=== PATIENT | male | born 1970 | race Caucasian/White ===

== ENCOUNTER 2020-04-02 14:58 | Inpatient (IN) | payer OTHER ==
[2020-04-02] MEDS ORDERED: morphine CARPU-JECT 4 MG/1 ML DISP.SYRIN IM ONE (15:42)
[2020-04-02] MEDS ORDERED: morphine SULFATE 4 MG/ML VIAL ONE (15:42)
--- NOTE | 2020-04-02 16:20 | PDOC ---
Documentation entered by Kassie East SCRIBE, acting as scribe for Omari Boyce MD. Omari Boyce MD: This documentation has been prepared by the Cruzito villalta Nirvannie, SCRIBE, under my direction and personally reviewed by me in its entirety. I confirm that the documentation accurately reflects all work, treatment, procedures, and medical decision making performed by me. Attending Attestation - Resident Resident Name: WanderdinahBonnie - ED Attending Attestation I have performed the following: I have examined & evaluated the patient, The case was reviewed & discussed with the resident, I agree w/resident's findings & plan, Exceptions are as noted - HPI HPI: 04/02/20 16:04 The patient is a 50 year old undomiciled male with no significant past medical history who presents to the ED with 2 months of worsening lower extremity wounds. Per EMS they received a call for that [place] on him. Patient states that he became homeless approximately 2 months ago, at some point as he was walking around he felt pain in his right ankle and felt it "shift". Since then he has had pain and discomfort in his ankle when he ambulated, but recently has been so u ncomfortable that he cannot walk. Patient also endorses diffuse body aches, chest pain, abdominal pain,, subjective fevers and chills, also endorses feeling dizzy when he stands up. He has no known medical problems - Physicial Exam PE: 04/02/20 16:43 GENERAL: The patient is awake, alert, , Nontoxic - in no acute distress, disheveled, unkempt, HEAD: Normocephalic, atraumatic. EYES: extraocular movements intact, sclera anicteric, conjunctiva clear. ENT: Normal voice, Moist mucous membranes. NECK: Normal range of motion, supple LUNGS: Breath sounds equal, clear to auscultation bilaterally. No wheezes, no rhonchi, no rales. HEART: Tachycardic ABDOMEN: Soft, slightly distended, no focal tenderness, no rebound or guarding, no CVA tenderness EXTREMITIES: no edema, able to flex/extend b/l feet. NEUROLOGICAL: No facial assymetry, Normal speech, wheezing all 4 extremities spontaneously and symmetrically PSYCH: Normal mood, normal affect. SKIN: Warm, Dry, normal turgor, open wounds/maggots to the R foot, dusky apperarance to R foot, diffuse tenderness to palpation, L foot, DP pulses faintly presen. no cerpitus apprecitaed - Critical Care Time Total Critical Care Time: 35 Critical Care Statement: The care of this patient involved high complexity decision making to prevent further life threatening deterioration of the patient's condition and/or to evaluate & treat vital organ system(s) failure or risk of failure. - Medical Decision Making 04/02/20 16:47 suspect gangrene, ? underlying bony injury sepsis orderset obtained will obtain imaging of chest, b/l feet and likely CT of bl feet to eval for tissue injury/infection will start broad spectrum abx signed out to evening team to fu with results Discharge - Discharge Information Problems reviewed: Yes Clinical Impression/Diagnosis: Hyperglycemia, Lactic acid acidosis, Homeless single person Sepsis Qualifiers: Sepsis type: sepsis due to unspecified organism Sepsis acute organ dysfunction status: unspecified Qualified Code(s): A41.9 - Sepsis, unspecified organism Trench foot Qualifiers: Encounter type: initial encounter Laterality: unspecified laterality Qualified Code(s): T69.029A - Immersion foot, unspecified foot, initial encounter Condition: Guarded - Follow up/Referral - Patient Discharge Instructions - Post Discharge Activity
[2020-04-02 16:29] VITALS: BMI 29.9
[2020-04-02] MEDS ORDERED: SODIUM CHLORIDE 0.9% 500 ML INFUS.BAG IV ONE ×2 (16:41→17:25)
[2020-04-02] MEDS ORDERED: VANCOMYCIN 1 GM in D5W (PRE-DOCKED) 1,000 MG/250 ML IVPB ONE (16:41)
[2020-04-02] MEDS ORDERED: PIPERACILLIN/TAZOB 3.375 GM 3.375 GM in DEXTROSE 5%-WATER - 50 ML IVPB ONE (16:42)
[2020-04-02] MEDS ORDERED: PIPERACILLIN/TAZOB 4.5 GM 4.5 GM in DEXTROSE 5%-WATER 100 ML IVPB ONE (16:43)
[2020-04-02] MEDS ORDERED: VANCOMYCIN HCL 1,500 MG in DEXTROSE 5%-WATER - 500 ML IVPB ONE (16:44)
[2020-04-02 16:46] LABS: BASO % 0.2 % (0-2.0); EOS % 0.1 % (0-4.5); HEMATOCRIT 39.2 % (35.4-49); HEMOGLOBIN 13.2 GM/dL (11.7-16.9); LYMPH % 12.8 % (8-40); MCH 29.2 pg (25.7-33.7); MCHC 33.6 g/dl (32.0-35.9); MEAN CELL VOLUME 86.9 fl (80-96); MEAN PLT VOLUME 11.2 fl (7.5-11.1); MONO % 13.3 % (3.8-10.2); NEUT % 73.6 % (42.8-82.8); PLATELET COUNT 276 K/MM3 (134-434); RBC 4.51 M/mm3 (4.00-5.60); RDW 13.9 % (11.9-15.9); WHITE BLOOD COUNT 18.5 K/mm3 (4.0-10.0)
[2020-04-02 17:08] LABS: INR 1.39 (0.83-1.09); PROTHROMBIN TIME (PATIENT) 16.4 SEC (9.7-13.0)
--- NOTE | 2020-04-02 17:12 | PDOC ---
History of Present Illness - General Stated Complaint: INFECTION ON RIGHT LEG Time Seen by Provider: 04/02/20 15:00 Past History - Past Medical History Allergies/Adverse Reactions: Allergies Allergy/AdvReac Type Severity Reaction Status Date / Time No Known Allergies Allergy Verified 04/02/20 16:19 Home Medications: Ambulatory Orders NK [No Known Home Medication] 04/02/20 COPD: No - Immunization History Immunization Up to Date: No - Psycho Social/Smoking Cessation Hx Smoking History: Unknown if ever smoked Hx Alcohol Use: Yes Drug/Substance Use Hx: No *Physical Exam - Vital Signs Last Vital Signs Temp Pulse Resp BP Pulse Ox 97.1 F L 129 H 19 127/90 99 04/02/20 16:00 04/02/20 16:00 04/02/20 16:00 04/02/20 16:00 04/02/20 16:00 ED Treatment Course - LABORATORY CBC & Chemistry Diagram: 04/07/20 06:35 04/07/20 06:35 - ADDITIONAL ORDERS Additional order review: Laboratory Results 04/02/20 16:00 PT with INR 16.40 H INR 1.39 H 04/02/20 16:00 RBC 4.51 MCV 86.9 MCHC 33.6 RDW 13.9 MPV 11.2 H Neutrophils % 73.6 Lymphocytes % 12.8 Monocytes % 13.3 H Eosinophils % 0.1 Basophils % 0.2 - RADIOLOGY Radiology Studies Ordered: Category Date Time Status CHEST X-RAY PORTABLE* [RAD] Stat Radiology 04/02/20 16:12 Ordered - Medications Given in the ED: ED Medications Discontinued Medications Generic Name Dose Route Start Last Admin Trade Name Apurva PRN Reason Stop Dose Admin Morphine Sulfate 4 mg 04/02/20 15:42 04/02/20 15:45 Morphine Injection - IM 04/02/20 15:43 4 mg ONCE ONE Administration Medical Decision Making - Medical Decision Making 04/02/20 17:11 HPI: 50yo undomiciled M no known PMH BIBA from street for bilateral foot infection with maggots [id number]. Per EMS, bystanders noticed maggots coming out of pt's pants/boots and called EMS. [place]. Pt c/o worsening pain and infection in both feet, R>L, worsening. Denies numbness or t ingling. States he can no longer walk due to the pain. Denies wounds but thinks he might have injured his right ankle while walking 2 months ago. Pt states he left prison 3 months ago and couldn't find a job with coronavirus and has been homeless for 2 months. No primary care doctor or medical care. States the infection from his feet is making everything else hurt as well including his chest and abdomen and arms and back. Endorses subjective fever and chills. PCP - none ROS: Constitutional: Positive for chills, fever. Negative for fatigue, diaphoresis. HENT: Negative for sore throat, rhinorrhea, congestion. Eyes: Negative for visual disturbance. Respiratory: Negative for shortness of breath, cough, and wheezing. Cardiovascular: Positive for diffuse chest pain. Negative for palpitations. Gastrointestinal: Positive for diffuse abdominal pain. Negative for blood in stool, constipation, diarrhea, nausea, and vomiting. Genitourinary: Negative for dysuria, flank pain, and hematuria. Musculoskeletal: Positive for myalgias, diffuse back pain. Negative for neck pain. Skin: Positive for BLE infection/rash. Neurological: Negative for light-headedness, dizziness, vertigo, syncope, weakness, numbness and headaches. Psychiatric/Behavioral: Negative for behavioral problems and confusion. PE: Gen: Alert, NAD, uncomfortable-appearing, unkempt, disheveled, malodourous, covered in flies and maggots and feces and urine HEENT: PERRL, EOMI, MMM, NCAT. No conjunctival pallor. Sclera are non-icteric. CV: Tachycardic rate and regular rhythm. No murmurs, rubs, or gallops. PULM: No resp distress. CTAB, no wheezes, rales, or rhonchi. ABD: soft, NT/ND, no rebound tenderness or guarding, no CVA tenderness. BACK: No TTP of c/t/l-spine. No step-offs or deformities. MSK: No bony deformities. 2+ pulses in UEs, pulses faint in LEs difficult to appreciate 2/2 pain and swelling, but sensation intact throughout and able to move toes. NEURO: AAOx3. PERRL. No gross CN deficits. Strength and sensation grossly intact in UEs. LEs: sensation intact throughout and able to move toes, difficulty moving legs 2/2 pain EXTREMITIES: No cyanosis. No clubbing. See skin section. PSYCH: Normal mood and thought pattern. SKIN: Warm and dry. No jaundice. RLE: covered in thousands of maggots (cleaned off with betadine), sock adherent to skin had to be cut off, diffuse TTP especially to foot and ankle, indentation to ankle, open wounds and erythema to R foot and lower leg, duskiness to R foot, no crepitus LLE: erythematous L foot, TTP of L foot and ankle, no crepitus MDM: 50yo undomiciled M no known PMH BIBA from street for bilateral foot infection with maggots [id number]. Tachycardic 120s-130s, otherwise hemodynamically stable, 97.1F, LEs as above. Ddx: cellulitis, soft tissue infection, osteomyelitis, necrotising fasciitis, gangrene/necrosis, fracture, dislocation, sepsis, COVID, metabolic derangement -Pt cleaned -Sepsis set -EKG -CXR -XR b/l feet/ankle -CT BLEs distal to knees -Pain management -IVF -Vanc, Zosyn -COVID -Social work consult -Dispo: pending w/u, likely admit vs transfer 04/02/20 18:15 EKG reviewed: sinus tachycardia, 128bpm, normal intervals, normal axis, no e/o acute ischemia CXR reviewed: no acute pathology. Calcified granuloma within R midlung. XR BLEs reviewed: Left (labeled right): Mild degenerative arthritis. No fx or acute. Right (labeled left): No e/o fx. Diffuse soft tissue swelling w/o e/o subcutaneous emphysema. Deformity of phalanges of L fifth toes suspicious for osteomyelitis. Discussed with XR tech - left and right foot labels were switched. XR tech will call radiologist to inform. Labs reviewed. Notable for WBC 18.5, Na 124, gluc 439, lact 3.7. 04/02/20 19:05 Signed out to night team pending CT read and 2nd lact. Discharge - Discharge Information Problems reviewed: Yes Clinical Impression/Diagnosis: Hyperglycemia, Lactic acid acidosis, Homeless single person Sepsis Qualifiers: Sepsis type: sepsis due to unspecified organism Sepsis acute organ dysfunction status: unspecified Qualified Code(s): A41.9 - Sepsis, unspecified organism Trench foot Qualifiers: Encounter type: initial encounter Laterality: unspecified laterality Qualified Code(s): T69.029A - Immersion foot, unspecified foot, initial encounter Condition: Guarded - Follow up/Referral - Patient Discharge Instructions - Post Discharge Activity
[2020-04-02 17:16] LABS: ALBUMIN 2.5 g/dl (3.4-5.0); BILIRUBIN,TOTAL 0.9 mg/dL (0.2-1); BLOOD UREA NITROGEN 28.3 mg/dL (7-18); CALCIUM 8.6 mg/dL (8.5-10.1); CREATININE 1.3 mg/dL (0.55-1.3); POTASSIUM 4.8 mmol/L (3.5-5.1); TOT PROT 7.8 g/dl (6.4-8.2)
[2020-04-02] MEDS ORDERED: PIPERACILLIN/TAZOB 4.5 GM 4.5 GM/100 ML BAG IVPB ONE (17:27)
[2020-04-02] MEDS ORDERED: VANCOMYCIN 1 GRAM (PRE-DOCKED) 1,000 MG/250 ML BAG IVPB ONE (17:28)
--- NOTE | 2020-04-02 19:27 | PDOC ---
*Physical Exam - Vital Signs Last Vital Signs Temp Pulse Resp BP Pulse Ox 98.3 F 124 H 18 123/71 100 04/02/20 19:02 04/02/20 19:02 04/02/20 19:14 04/02/20 19:02 04/02/20 19:14 ED Treatment Course - LABORATORY CBC & Chemistry Diagram: 04/02/20 16:00 04/02/20 16:00 - ADDITIONAL ORDERS Additional order review: Laboratory Results 04/02/20 04/02/20 04/02/20 16:00 16:00 16:00 PT with INR INR PTT (Actin FS) Sodium 124 L Potassium 4.8 Chloride 88 L Carbon Dioxide 26 Anion Gap 10 BUN 28.3 H Creatinine 1.3 Est GFR (CKD-EPI)AfAm 73.74 Est GFR (CKD-EPI)NonAf 63.62 Random Glucose 439 H* Lactic Acid 3.7 H* Calcium 8.6 Total Bilirubin 0.9 AST 29 ALT 25 Alkaline Phosphatase 145 H Creatine Kinase 115 Troponin I Total Protein 7.8 Albumin 2.5 L Blood Type A POSITIVE Antibody Screen Negative 04/02/20 04/02/20 16:00 16:00 PT with INR 16.40 H INR 1.39 H PTT (Actin FS) 35.0 Sodium Potassium Chloride Carbon Dioxide Anion Gap BUN Creatinine Est GFR (CKD-EPI)AfAm Est GFR (CKD-EPI)NonAf Random Glucose Lactic Acid Calcium Total Bilirubin AST ALT Alkaline Phosphatase Creatine Kinase Troponin I < 0.02 Total Protein Albumin Blood Type Antibody Screen 04/02/20 16:00 RBC 4.51 MCV 86.9 MCHC 33.6 RDW 13.9 MPV 11.2 H Neutrophils % 73.6 Lymphocytes % 12.8 Monocytes % 13.3 H Eosinophils % 0.1 Basophils % 0.2 - Medications Given in the ED: ED Medications Discontinued Medications Generic Name Dose Route Start Last Admin Trade Name Freq PRN Reason Stop Dose Admin Piperacillin Sod/Tazobactam 100 mls @ 200 mls/hr 04/02/20 16:43 04/02/20 17:34 Sod 4.5 gm/ Dextrose IVPB 04/02/20 17:12 200 mls/hr ONCE ONE Administration Protocol Vancomycin HCl 1,500 mg/ 500 mls @ 250 mls/hr 04/02/20 16:44 04/02/20 17:34 Dextrose IVPB 04/02/20 18:43 250 mls/hr ONCE ONE Administration Morphine Sulfate 4 mg 04/02/20 15:42 04/02/20 15:45 Morphine Injection - IM 04/02/20 15:43 4 mg ONCE ONE Administration Sodium Chloride 1,000 ml 04/02/20 16:41 04/02/20 17:34 Normal Saline - IV 04/02/20 16:42 1,000 ml ONCE ONE Administration Sodium Chloride 1,000 ml 04/02/20 17:25 04/02/20 19:00 Normal Saline - IV 04/02/20 17:26 1,000 ml ONCE ONE Administration Vancomycin HCl 1,000 mg 04/02/20 16:41 04/02/20 19:12 Vancomycin (Pre-Docked) IVPB 04/02/20 16:42 Not Given ONCE ONE Protocol Medical Decision Making - Medical Decision Making 04/02/20 19:24 Sign-out received from Dr. Doe Patient awaiting results of LE CT - concern for osteo vs less likely necrotizing infection Repeat lactate due 8PM s/p Vanc Zosyn Admit vs Surgery Consult 04/02/20 19:32 Patient hyponatremic 124 (corrected for glucose > 132) Hyperglycemic, suspected DM,, no anion gap UTI with +Glucose and Ketones, no UTI (?starvation ketosis) Lactic acidosis s/p 2 L NS Trench Foot, s/p cleaning, Morphine pain control Imaging to r/o deeper foot infection Homeless w/o access to care 04/02/20 20:29 CT concerning for osteo of the 5th digit, patient will need follow-up MRI s/p broad spectrum ABX Dispo: Med/Surg 04/02/20 20:36 Microblog sent to inpatient team, decision to admit placed with blank for attending as per policy. 04/02/20 21:20 Lactic acid down-trending s/p IVF Patient sleeping comfortably Discharge - Discharge Information Problems reviewed: Yes Clinical Impression/Diagnosis: Hyperglycemia, Lactic acid acidosis, Homeless single person Sepsis Qualifiers: Sepsis type: sepsis due to unspecified organism Sepsis acute organ dysfunction status: unspecified Qualified Code(s): A41.9 - Sepsis, unspecified organism Trench foot Qualifiers: Encounter type: initial encounter Laterality: unspecified laterality Qualified Code(s): T69.029A - Immersion foot, unspecified foot, initial encounter Condition: Guarded - Follow up/Referral - Patient Discharge Instructions - Post Discharge Activity
[2020-04-02 19:28] LABS: URINE APPEARANCE CLEAR; URINE BILIRUBIN NEGATIVE (NEGATIVE); URINE COLOR DK YELLOW; URINE GLUCOSE (UA) 3+ (NEGATIVE); URINE KETONE 1+ (NEGATIVE); URINE LEUK ESTERASE NEGATIVE (NEGATIVE); URINE NITRITE NEGATIVE (NEGATIVE); URINE PROTEIN TRACE (NEGATIVE)
--- NOTE | 2020-04-02 21:31 | PN ---
Teaching Attending Note Name of Resident: Cristel Aguiar ATTENDING PHYSICIAN STATEMENT I saw and evaluated the patient. I reviewed the resident's note and discussed the case with the resident. I agree with the resident's findings and plan as documented. SUBJECTIVE: Patient is a 50 year old undomiciled man with "unknown" PMH who was brought by EMS to the ER for 2 months of worsening lower extremity wounds. Per EMS they received a call for that [place] magg[place] on him. Patient states that he became homeless approximately 2 months ago, and at some point as he was walking around he felt pain in his right ankle and felt it "shift". Since then he has had pain and discomfort in his ankle when he ambulated, but recently has been so uncomfortable that he cannot walk. Also has diffuse body aches, chest pain, abdominal pain, subjective fevers, chills and feels dizzy when he stands up. Denies alcohol, tobacco or illicit drug use. No sick contacts or recent travels. Family history is unremarkable. OBJECTIVE: Alert and unkempt Vital Signs Period Temp Pulse Resp BP Sys/Perkins Pulse Ox Last 24 Hr 97.1 F-98.3 F 124-129 18-19 123-127/71-90 99-100 HEENT: No Jaundice, eye redness or discharge, poor dentition, dry mucous membranes, PERRLA, EOMI. Normocephalic, atraumatic. External ears are normal and hearing is grossly intact. No nasal discharge. Neck: Supple, nontender. No palpable adenopathy or thyromegaly. No JVD Chest: Good effort. Clear to auscultation and percussion. Heart: Regular. No S3, rub or murmur Abdomen: Not distended, soft, nontender and no HSM. No rebound or guarding. Normal bowel sounds. Ext: Peripheral pulses intact. Scaly dry lower legs. Multiple open wounds and erythema on right foot and lower leg; +edema and tender with no crepitus. Left foot and lower leg erythema, edema and tenderness with no crepitus. Skin: Warm and dry. No petechiae, rash or ecchymosis. Neuro: Alert. No asterexis or tremors. Oriented x3. CN 2-12 grossly intact. Sensation grossly intact in all four extremities and DTR are symmetric. Psych: Appropriate mood and affect. Good insight. Home Medications Medication Instructions Recorded NK [No Known Home Medication] 04/02/20 Abnormal Lab Results 04/02/20 04/02/20 04/02/20 16:00 16:00 16:00 WBC 18.5 H MPV 11.2 H Absolute Neuts (auto) 13.6 H Monocytes % 13.3 H PT with INR 16.40 H INR 1.39 H Sodium 124 L Chloride 88 L BUN 28.3 H Random Glucose 439 H* Lactic Acid Alkaline Phosphatase 145 H Albumin 2.5 L Ur Specific [place] Urine Glucose (UA) Urine Ketones 04/02/20 04/02/20 04/02/20 16:00 19:00 20:10 WBC MPV Absolute Neuts (auto) Monocytes % PT with INR INR Sodium Chloride BUN Random Glucose Lactic Acid 3.7 H* 2.1 H Alkaline Phosphatase Albumin Ur Specific [place] 1.039 H Urine Glucose (UA) 3+ H Urine Ketones 1+ H ASSESSMENT AND PLAN: 1. Sepsis due to lower extremity wound infection/Rule out osteomyelitis - No acute abnormality on CXR. Foot xrays show mild degenerative arthritis on the left, no fractures on both sides and diffuse soft tissue swelling with soft tissue swelling and subcutaneous emphysema on the right. Deformity of phalanges of right fifth toe suspicious for osteomyelitis. CT scan of lower extremity shows soft tissue swelling of right foot, no air collection, no fracture, extensive edema, deformity of right 5th proximal phalanx concerning for osteomyelitis - MRI recommended. Wound cleaned in the ER, sepsis workup done and started on IV Vancomycin and Zosyn and IV NS. Viral testing for COVID-19 was collected and sent out by the ER staff. Patient placed on airborne, droplet and contact isolation. EKG shows sinus tachycardia at 128/minute with no significant ST-T wave changes. Provide daily wound care, consult ID, Wound care service and Podiatry. Hyponatremia likely partly due to hyperglycemia. Will get TSH, limit free water intake and correct hyperglycemia. Consult wireworker to assist with living situation. Patient is at risk for alcohol/substance abuse. Will get urine toxicology and monitor for withdrawal. Implement fall precautions. Monitor and replete electrolytes (Ca,Mg,K,P). 2. Hypoalbuminemia - Possibly due to combined effects of malnutrition and inflammation associated with comorbid conditions. Will ensure adequate dietary protein intake and also consult bus person dishwasher. 3. New onset DM? with ketosis May have a component of starvation ketosis, but with very high blood glucose, will check HbA1c. Continue IV NS and implement sliding scale insulin regimen. Provide comprehensive diabetes care with patient teaching and counseling about the importance of adherence to prescribed diabetes regimen, euglycemia, eye care and foot care. 4. Obesity Counseled on the risks associated with obesity. Will provide patient all the necessary assistance, counseling and positive reinforcement to facilitate weight loss. Consult bus person dishwasher. 5. DVT prophylaxis - Lovenox 40 mg SQ q 24 hours. 6. Advance directives - Full code
--- NOTE | 2020-04-02 22:08 | HP ---
CHIEF COMPLAINT: Lower extremity pain PCP: None HISTORY OF PRESENT ILLNESS: 50M undomiciled who presents today after bystanders noted he had maggots on his lower extremities. Patient states that both of his legs began to develop pain 2 months ago and gradually worsened. He has had increased difficulty walking over the past few days, and has not been able to ambulate at all the last 2 days. He believes that he fractured his ankle in the recent past. He endorses decreased sensation in the right 5th toe, and he notes that his wounds were normally dry without drainage. He also complains of chest pain, abdominal pain, back pain, and pain in all his extremities, which he attributes mostly to sleeping on the street. He denies any fever, cough, congestion, rhinorrhea, dysuria, hematuria, nausea, vomiting, and diarrhea. ER course was notable for: (1) Vancomycin and Zosyn were given, 2L NS given. (2) X-Ray of both feet and Lower extremity CT were completed. Lower extremity CT notable for suspicion of OM for 5th toe on right foot. (3) Patient noted to be hyperglycemic to 439. (4) EKG showed sinus tachycardia with QTc 461 Recent Travel: None PAST MEDICAL HISTORY: None, does not follow with a doctor PAST SURGICAL HISTORY: None FAMILY MEDICAL HISTORY: Denies Social History: Smoking: Denies Alcohol: Occasional Drugs: Denies Patient is undomiciled, has no family nearby, was recently in [facility] for 1 month at the end of 2018. He does not live in a fpc. 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 Allergies No Known Allergies Allergy (Verified 04/02/20 16:19) HOME MEDICATIONS: Home Medications Medication Instructions Recorded NK [No Known Home Medication] 04/02/20 REVIEW OF SYSTEMS CONSTITUTIONAL: Absent: fever, chills, diaphoresis, generalized weakness, malaise, loss of appetite, weight change HEENT: Absent: rhinorrhea, nasal congestion, throat pain, throat swelling, difficulty swallowing, mouth swelling, ear pain, eye pain, visual changes CARDIOVASCULAR: Present: chest pain Absent: syncope, palpitations, irregular heart rate, lightheadedness, peripheral edema RESPIRATORY: Absent: cough, shortness of breath, dyspnea with exertion, orthopnea, wheezing, stridor, hemoptysis GASTROINTESTINAL: Present: abdominal pain Absent: abdominal distension, nausea, vomiting, diarrhea, constipation, melena, hematochezia GENITOURINARY: Absent: dysuria, frequency, urgency, hesitancy, hematuria, flank pain, genital pain MUSCULOSKELETAL: Present: neck pain, back pain, myalgia, arthralgia Absent: joint swelling, SKIN: Absent: rash, itching, pallor HEMATOLOGIC/IMMUNOLOGIC: Absent: easy bleeding, easy bruising, lymphadenopathy, frequent infections ENDOCRINE: Absent: unexplained weight gain, unexplained weight loss, heat intolerance, cold intolerance NEUROLOGIC: Absent: headache, focal weakness or paresthesias, dizziness, unsteady gait, seizure, mental status changes, bladder or bowel incontinence PSYCHIATRIC: Absent: anxiety, depression, suicidal or homicidal ideation, hallucinations. PHYSICAL EXAMINATION Vital Signs - 24 hr 04/02/20 04/02/20 04/02/20 16:00 19:02 19:14 Temperature 97.1 F L 98.3 F Pulse Rate 129 H Pulse Rate [ 124 H Left Radial] Respiratory 19 18 18 Rate Blood Pressure 127/90 Blood Pressure 123/71 [Right Arm] O2 Sat by Pulse 99 100 100 Oximetry (%) GENERAL: Awake, alert, and fully oriented, in no acute distress. Disheveled. HEAD: Normal with no signs of trauma. EYES: Pupils equal, round and reactive to light, EARS, NOSE, THROAT:Poor dentition, dry mucous membranes. NECK: Normal range of motion, supple without lymphadenopathy, JVD, or masses. LUNGS: Breath sounds equal, clear to auscultation bilaterally. No wheezes, and no crackles. HEART: Tachycardic normal S1 and S2 without murmur, rub or gallop. ABDOMEN: Soft, nontender, not distended, normoactive bowel sounds, no guarding, no rebound, no masses. No hepatomegaly or splenomegaly. Obese body habiturs UPPER EXTREMITIES: 2+ pulses, warm, well-perfused. No cyanosis. No clubbing. No peripheral edema. LOWER EXTREMITIES: 2+ pulses b/l. 3/5 strength. Sensation in tact b/l NEUROLOGICAL: Cranial nerves II-XII intact. Normal speech. PSYCHIATRIC: Cooperative. Good eye contact. Appropriate mood and affect. SKIN: dark and scaly on both lower extremities b/l. Multiple wounds on right lower extremity, non draining non purelent. Laboratory Results - last 24 hr 04/02/20 04/02/20 04/02/20 16:00 16:00 16:00 WBC 18.5 H RBC 4.51 Hgb 13.2 Hct 39.2 MCV 86.9 MCH 29.2 MCHC 33.6 RDW 13.9 Plt Count 276 MPV 11.2 H Absolute Neuts (auto) 13.6 H Neutrophils % 73.6 Neutrophils % (Manual) 69.3 Band Neutrophils % 5.0 Lymphocytes % 12.8 Lymphocytes % (Manual) 16.8 Monocytes % 13.3 H Monocytes % (Manual) 7 Eosinophils % 0.1 Eosinophils % (Manual) 0.0 Basophils % 0.2 Basophils % (Manual) 0.0 Myelocytes % (Man) 0 Promyelocytes % (Man) 0 Blast Cells % (Manual) 0 Nucleated RBC % 0 Metamyelocytes 1 PT with INR 16.40 H INR 1.39 H PTT (Actin FS) 35.0 Sodium Potassium Chloride Carbon Dioxide Anion Gap BUN Creatinine Est GFR (CKD-EPI)AfAm Est GFR (CKD-EPI)NonAf Random Glucose Lactic Acid Calcium Total Bilirubin AST ALT Alkaline Phosphatase Creatine Kinase Troponin I < 0.02 Total Protein Albumin Urine Color Urine Appearance Urine pH Ur Specific [place] Urine Protein Urine Glucose (UA) Urine Ketones Urine Blood Urine Nitrite Urine Bilirubin Urine Urobilinogen Ur Leukocyte Esterase Blood Type Antibody Screen 04/02/20 04/02/20 04/02/20 16:00 16:00 16:00 WBC RBC Hgb Hct MCV MCH MCHC RDW Plt Count MPV Absolute Neuts (auto) Neutrophils % Neutrophils % (Manual) Band Neutrophils % Lymphocytes % Lymphocytes % (Manual) Monocytes % Monocytes % (Manual) Eosinophils % Eosinophils % (Manual) Basophils % Basophils % (Manual) Myelocytes % (Man) Promyelocytes % (Man) Blast Cells % (Manual) Nucleated RBC % Metamyelocytes PT with INR INR PTT (Actin FS) Sodium 124 L Potassium 4.8 Chloride 88 L Carbon Dioxide 26 Anion Gap 10 BUN 28.3 H Creatinine 1.3 Est GFR (CKD-EPI)AfAm 73.74 Est GFR (CKD-EPI)NonAf 63.62 Random Glucose 439 H* Lactic Acid 3.7 H* Calcium 8.6 Total Bilirubin 0.9 AST 29 ALT 25 Alkaline Phosphatase 145 H Creatine Kinase 115 Troponin I Total Protein 7.8 Albumin 2.5 L Urine Color Urine Appearance Urine pH Ur Specific [place] Urine Protein Urine Glucose (UA) Urine Ketones Urine Blood Urine Nitrite Urine Bilirubin Urine Urobilinogen Ur Leukocyte Esterase Blood Type A POSITIVE Antibody Screen Negative 04/02/20 04/02/20 19:00 20:10 WBC RBC Hgb Hct MCV MCH MCHC RDW Plt Count MPV Absolute Neuts (auto) Neutrophils % Neutrophils % (Manual) Band Neutrophils % Lymphocytes % Lymphocytes % (Manual) Monocytes % Monocytes % (Manual) Eosinophils % Eosinophils % (Manual) Basophils % Basophils % (Manual) Myelocytes % (Man) Promyelocytes % (Man) Blast Cells % (Manual) Nucleated RBC % Metamyelocytes PT with INR INR PTT (Actin FS) Sodium Potassium Chloride Carbon Dioxide Anion Gap BUN Creatinine Est GFR (CKD-EPI)AfAm Est GFR (CKD-EPI)NonAf Random Glucose Lactic Acid 2.1 H Calcium Total Bilirubin AST ALT Alkaline Phosphatase Creatine Kinase Troponin I Total Protein Albumin Urine Color Dk yellow Urine Appearance Clear Urine pH 6.0 Ur Specific [place] 1.039 H Urine Protein Trace Urine Glucose (UA) 3+ H Urine Ketones 1+ H Urine Blood Negative Urine Nitrite Negative Urine Bilirubin Negative Urine Urobilinogen 1.0 Ur Leukocyte Esterase Negative Blood Type Antibody Screen ASSESSMENT/PLAN: 50M undomiciled and with uncertain PMH who presents toady with sepsis likely 2/2 wound infection. 1) Sepsis -Patient presents in sinus tachycardia, WBC of 18.5, lactic acid of 3.7 - Vancomycin and Zosyn were given in ED - Patient denies any fevers - COVID swab sent, pending - Zinc, Vitamin C and D ordered - Likely due to wound infection vs OM in 5th toe. - Continue Vancomycin and Zosyn - Wound culture - NS @ 100 ml/hr for 1 bag - ID consulted 2) Possible OM of 5th toe R. foot - X-Ray and CT did not confirm OM - MRI ordered b/l lower extremities. - Tylenol for pain 4-6. - Morphine PRN for pain 10 - Podiatry consulted - Will consider addition of vascular surgery team 3) Hyperglycemia - Patient presents with blood glucose of 439, repeat POC was 343 - 8 units insulin ordered,sliding scale ordered - HbA1c ordered for morning - Diabetic diet 4) Hyponatremia - Sodium corrects to 129 - Repeat BMP stat - NS @ 100 ml/hr - Continue to trend - TSH 5) Social work requirements - Patient currently undomiciled, has not been able to seek care or establish care - Social work consult placed DVT: Heparin F: NS @ 100 E: Monitor Na N: Diabetic Diet Dispo: admit to med/surg Visit type - Emergency Visit Emergency Visit: Yes ED Registration Date: 04/02/20 Care time: The patient presented to the Emergency Department on the above date and was hospitalized for further evaluation of their emergent condition. - New Patient This patient is new to me today: Yes Date on this admission: 04/03/20 - Critical Care Critical Care patient: No ATTENDING PHYSICIAN STATEMENT I saw and evaluated the patient. I reviewed the resident's note and discussed the case with the resident. I agree with the resident's findings and plan as documented. SUBJECTIVE: OBJECTIVE: ASSESSMENT AND PLAN:
[2020-04-02] MEDS ORDERED: SODIUM CHLORIDE 1,000 ML IV SCH (23:30)
[2020-04-02] MEDS ORDERED: HEPARIN NA (PORCINE) 5,000 UNITS/ML 1ML VIAL ONE (23:51)
[2020-04-02] MEDS: HEPARIN NA (PORCINE) 5,000 UNITS/ML 1ML VIAL SQ SCH (23:58)
[2020-04-03] MEDS ORDERED: INSULIN (NOVOLOG) ASPART 100 UNITS/ML 10ML VIAL SQ ONE (00:02)
[2020-04-03] MEDS ORDERED: ACETAMINOPHEN 325 MG TABLET (FP) PO PRN (00:14)
[2020-04-03] MEDS ORDERED: PIPERACILLIN/TAZOBACTAM 3.375 GM VIAL IVPB ONE ×3 (01:06→18:23)
[2020-04-03] MEDS ORDERED: DEXTROSE 5%-WATER - 50 ML IVPB ONE ×3 (01:06→18:23)
[2020-04-03] MEDS: PIPERACILLIN/TAZOB 3.375 GM 3.375 GM in DEXTROSE 5%-WATER - 50 ML IVPB SCH ×5 (01:11→19:20)
[2020-04-03 02:44] LABS: COCAINE, UR NEGATIVE ng/ml (CUTOFF=300); METHADONE, UR NEGATIVE ng/ml (CUTOFF=300); PHENCYCLIDINE,URINE NEGATIVE ng/ml (CUTOFF=25); URINE AMPHETAMINES NEGATIVE ng/ml (CUTOFF=500); URINE BARBITURATES NEGATIVE ng/ml (CUTOFF=200)
[2020-04-03 02:50] LABS: URINE BENZODIAZEPINES NEGATIVE ng/ml (CUTOFF=200)
[2020-04-03 02:51] LABS: OPIATES, URI POSITIVE ng/ml (CUTOFF=300)
[2020-04-03 03:01] LABS: CALCIUM 7.7 mg/dL (8.5-10.1)
[2020-04-03] MEDS: VANCOMYCIN HCL 1,250 MG in DEXTROSE 5%-WATER - 250 ML IVPB SCH ×2 (03:27→16:58)
[2020-04-03] MEDS: INSULIN SLIDING SCALE (NOVOLOG) 1 VIAL SQ SCH ×4 (06:09→21:23)
[2020-04-03] MEDS: HEPARIN NA (PORCINE) 5,000 UNITS/ML 1ML VIAL SQ SCH ×3 (06:10→21:20)
[2020-04-03 08:13] LABS: BASO % 0.6 % (0-2.0); EOS % 0.5 % (0-4.5); HEMOGLOBIN 10.2 GM/dL (11.7-16.9); LYMPH % 20.7 % (8-40); MCH 29.2 pg (25.7-33.7); MEAN PLT VOLUME 10.7 fl (7.5-11.1); MONO % 15.5 % (3.8-10.2); NEUT % 62.7 % (42.8-82.8); PLATELET COUNT 220 K/MM3 (134-434); RBC 3.49 M/mm3 (4.00-5.60); RDW 13.8 % (11.9-15.9); WHITE BLOOD COUNT 15.3 K/mm3 (4.0-10.0)
[2020-04-03 08:41] LABS: ALBUMIN 1.8 g/dl (3.4-5.0); BILIRUBIN,TOTAL 0.5 mg/dL (0.2-1); BLOOD UREA NITROGEN 19.2 mg/dL (7-18); CALCIUM 7.6 mg/dL (8.5-10.1); MAGNESIUM 2.5 mg/dL (1.8-2.4); PHOSPHOROUS 2.2 mg/dL (2.5-4.9); POTASSIUM 3.9 mmol/L (3.5-5.1); TOT PROT 5.9 g/dl (6.4-8.2)
--- NOTE | 2020-04-03 09:06 | PN ---
Physical Exam: SUBJECTIVE: Patient seen and examined. patient denies drug use. States he has pain when walking in both legs. OBJECTIVE: Vital Signs Period Temp Pulse Resp BP Sys/Perkins Pulse Ox Last 24 Hr 97.1 F-98.3 F 106-129 18- 116-141/62-90 98-100 GENERAL: The patient is awake, alert, and fully oriented, in no acute distress. poor physical hygiene HEAD: Normal with no signs of trauma. EYES: EOMI, no scleral icterus ENT: dry mucous membranes LUNGS: Breath sounds equal, clear to auscultation bilaterally, no wheezes, no crackles, no accessory muscle use. HEART: RRR, no murmur noted ABDOMEN: Soft, nontender, nondistended EXTREMITIES: swelling of bilateral lower extremities, 2+ pedal pulses NEUROLOGICAL: sensation intact throughout, normal speech PSYCH: Normal mood, normal affect. SKIN: there is a small ulceration near the right 5th toe with a small amount of purulent drainage, there are multiple ulcers on the right leg extending from the ankle to the mid jin on the anteriomedial aspect with a small amount of active drainage Laboratory Results - last 24 hr 04/02/20 04/02/20 04/02/20 16:00 16:00 16:00 WBC 18.5 H RBC 4.51 Hgb 13.2 Hct 39.2 MCV 86.9 MCH 29.2 MCHC 33.6 RDW 13.9 Plt Count 276 MPV 11.2 H Absolute Neuts (auto) 13.6 H Neutrophils % 73.6 Neutrophils % (Manual) 69.3 Band Neutrophils % 5.0 Lymphocytes % 12.8 Lymphocytes % (Manual) 16.8 Monocytes % 13.3 H Monocytes % (Manual) 7 Eosinophils % 0.1 Eosinophils % (Manual) 0.0 Basophils % 0.2 Basophils % (Manual) 0.0 Myelocytes % (Man) 0 Promyelocytes % (Man) 0 Blast Cells % (Manual) 0 Nucleated RBC % 0 Metamyelocytes 1 PT with INR 16.40 H INR 1.39 H PTT (Actin FS) 35.0 Sodium Potassium Chloride Carbon Dioxide Anion Gap BUN Creatinine Est GFR (CKD-EPI)AfAm Est GFR (CKD-EPI)NonAf POC Glucometer Random Glucose Lactic Acid Calcium Phosphorus Magnesium Total Bilirubin AST ALT Alkaline Phosphatase Creatine Kinase Troponin I < 0.02 Total Protein Albumin Urine Color Urine Appearance Urine pH Ur Specific [place] Urine Protein Urine Glucose (UA) Urine Ketones Urine Blood Urine Nitrite Urine Bilirubin Urine Urobilinogen Ur Leukocyte Esterase Opiates Screen Methadone Screen Barbiturate Screen Phencyclidine Screen Ur Amphetamines Screen MDMA (Ecstasy) Screen Benzodiazepines Screen Cocaine Screen U Marijuana (THC) Screen Blood Type Antibody Screen 04/02/20 04/02/20 04/02/20 16:00 16:00 16:00 WBC RBC Hgb Hct MCV MCH MCHC RDW Plt Count MPV Absolute Neuts (auto) Neutrophils % Neutrophils % (Manual) Band Neutrophils % Lymphocytes % Lymphocytes % (Manual) Monocytes % Monocytes % (Manual) Eosinophils % Eosinophils % (Manual) Basophils % Basophils % (Manual) Myelocytes % (Man) Promyelocytes % (Man) Blast Cells % (Manual) Nucleated RBC % Metamyelocytes PT with INR INR PTT (Actin FS) Sodium 124 L Potassium 4.8 Chloride 88 L Carbon Dioxide 26 Anion Gap 10 BUN 28.3 H Creatinine 1.3 Est GFR (CKD-EPI)AfAm 73.74 Est GFR (CKD-EPI)NonAf 63.62 POC Glucometer Random Glucose 439 H* Lactic Acid 3.7 H* Calcium 8.6 Phosphorus Magnesium Total Bilirubin 0.9 AST 29 ALT 25 Alkaline Phosphatase 145 H Creatine Kinase 115 Troponin I Total Protein 7.8 Albumin 2.5 L Urine Color Urine Appearance Urine pH Ur Specific [place] Urine Protein Urine Glucose (UA) Urine Ketones Urine Blood Urine Nitrite Urine Bilirubin Urine Urobilinogen Ur Leukocyte Esterase Opiates Screen Methadone Screen Barbiturate Screen Phencyclidine Screen Ur Amphetamines Screen MDMA (Ecstasy) Screen Benzodiazepines Screen Cocaine Screen U Marijuana (THC) Screen Blood Type A POSITIVE Antibody Screen Negative 04/02/20 04/02/20 04/02/20 19:00 20:10 23:45 WBC RBC Hgb Hct MCV MCH MCHC RDW Plt Count MPV Absolute Neuts (auto) Neutrophils % Neutrophils % (Manual) Band Neutrophils % Lymphocytes % Lymphocytes % (Manual) Monocytes % Monocytes % (Manual) Eosinophils % Eosinophils % (Manual) Basophils % Basophils % (Manual) Myelocytes % (Man) Promyelocytes % (Man) Blast Cells % (Manual) Nucleated RBC % Metamyelocytes PT with INR INR PTT (Actin FS) Sodium Potassium Chloride Carbon Dioxide Anion Gap BUN Creatinine Est GFR (CKD-EPI)AfAm Est GFR (CKD-EPI)NonAf POC Glucometer 343 Random Glucose Lactic Acid 2.1 H Calcium Phosphorus Magnesium Total Bilirubin AST ALT Alkaline Phosphatase Creatine Kinase Troponin I Total Protein Albumin Urine Color Dk yellow Urine Appearance Clear Urine pH 6.0 Ur Specific [place] 1.039 H Urine Protein Trace Urine Glucose (UA) 3+ H Urine Ketones 1+ H Urine Blood Negative Urine Nitrite Negative Urine Bilirubin Negative Urine Urobilinogen 1.0 Ur Leukocyte Esterase Negative Opiates Screen Methadone Screen Barbiturate Screen Phencyclidine Screen Ur Amphetamines Screen MDMA (Ecstasy) Screen Benzodiazepines Screen Cocaine Screen U Marijuana (THC) Screen Blood Type Antibody Screen 04/03/20 04/03/20 04/03/20 00:35 01:35 01:55 WBC RBC Hgb Hct MCV MCH MCHC RDW Plt Count MPV Absolute Neuts (auto) Neutrophils % Neutrophils % (Manual) Band Neutrophils % Lymphocytes % Lymphocytes % (Manual) Monocytes % Monocytes % (Manual) Eosinophils % Eosinophils % (Manual) Basophils % Basophils % (Manual) Myelocytes % (Man) Promyelocytes % (Man) Blast Cells % (Manual) Nucleated RBC % Metamyelocytes PT with INR INR PTT (Actin FS) Sodium 128 L Potassium 4.0 Chloride 97 L Carbon Dioxide 24 Anion Gap 7 L BUN 22.0 H Creatinine 1.0 Est GFR (CKD-EPI)AfAm 101.26 Est GFR (CKD-EPI)NonAf 87.37 POC Glucometer 357 Random Glucose 346 H Lactic Acid Calcium 7.7 L Phosphorus Magnesium Total Bilirubin AST ALT Alkaline Phosphatase Creatine Kinase Troponin I Total Protein Albumin Urine Color Urine Appearance Urine pH Ur Specific [place] Urine Protein Urine Glucose (UA) Urine Ketones Urine Blood Urine Nitrite Urine Bilirubin Urine Urobilinogen Ur Leukocyte Esterase Opiates Screen Positive A* Methadone Screen Negative Barbiturate Screen Negative Phencyclidine Screen Negative Ur Amphetamines Screen Negative MDMA (Ecstasy) Screen Negative Benzodiazepines Screen Negative Cocaine Screen Negative U Marijuana (THC) Screen Negative Blood Type Antibody Screen 04/03/20 04/03/20 04/03/20 05:54 06:15 06:15 WBC 15.3 H RBC 3.49 L Hgb 10.2 L Hct 30.0 L D MCV 86.0 MCH 29.2 MCHC 34.0 RDW 13.8 Plt Count 220 D MPV 10.7 Absolute Neuts (auto) 9.6 H Neutrophils % 62.7 Neutrophils % (Manual) Band Neutrophils % Lymphocytes % 20.7 D Lymphocytes % (Manual) Monocytes % 15.5 H Monocytes % (Manual) Eosinophils % 0.5 D Eosinophils % (Manual) Basophils % 0.6 Basophils % (Manual) Myelocytes % (Man) Promyelocytes % (Man) Blast Cells % (Manual) Nucleated RBC % 0 Metamyelocytes PT with INR INR PTT (Actin FS) Sodium 131 L Potassium 3.9 Chloride 98 Carbon Dioxide 24 Anion Gap 9 BUN 19.2 H Creatinine 1.0 Est GFR (CKD-EPI)AfAm 101.26 Est GFR (CKD-EPI)NonAf 87.37 POC Glucometer 257 Random Glucose 231 H Lactic Acid Calcium 7.6 L Phosphorus 2.2 L Magnesium 2.5 H Total Bilirubin 0.5 AST 19 ALT 18 Alkaline Phosphatase 98 Creatine Kinase Troponin I Total Protein 5.9 L Albumin 1.8 L Urine Color Urine Appearance Urine pH Ur Specific [place] Urine Protein Urine Glucose (UA) Urine Ketones Urine Blood Urine Nitrite Urine Bilirubin Urine Urobilinogen Ur Leukocyte Esterase Opiates Screen Methadone Screen Barbiturate Screen Phencyclidine Screen Ur Amphetamines Screen MDMA (Ecstasy) Screen Benzodiazepines Screen Cocaine Screen U Marijuana (THC) Screen Blood Type Antibody Screen Active Medications Generic Name Dose Route Start Last Admin Trade Name Freq PRN Reason Stop Dose Admin Acetaminophen 650 mg 04/03/20 00:14 Tylenol - PO Q4H PRN PAIN LEVEL 4 - 6 Ascorbic Acid 500 mg 04/03/20 10:00 Vitamin C - PO DAILY [facility] Cholecalciferol 1,000 unit 04/03/20 10:00 Vitamin D3 - PO DAILY [facility] Heparin Sodium (Porcine) 5,000 unit 04/02/20 23:45 04/03/20 06:10 Heparin - SQ 5,000 unit TID VIC Administration Sodium Chloride 1,000 mls @ 100 mls/hr 04/02/20 23:30 04/02/20 23:58 Normal Saline - IV 100 mls/hr ASDIR VIC Administration Vancomycin HCl 1,250 mg/ 250 mls @ 166.667 mls/hr 04/03/20 04:00 Dextrose IVPB Q12H VIC Protocol Piperacillin Sod/Tazobactam 50 mls @ 100 mls/hr 04/03/20 02:00 Sod 3.375 gm/ Dextrose IVPB Q8H-IV VIC Protocol Vancomycin HCl 1,250 mg/ 250 mls @ 166.667 mls/hr 04/03/20 04:00 04/03/20 03:27 Dextrose IVPB 04/03/20 17:29 166.667 mls/hr Q12H VIC Administration Protocol Piperacillin Sod/Tazobactam 50 mls @ 100 mls/hr 04/03/20 02:00 04/03/20 01:11 Sod 3.375 gm/ Dextrose IVPB 04/03/20 18:29 100 mls/hr Q8H-IV VIC Administration Protocol Influenza Virus Vaccine Quadrival 60 mcg 04/03/20 10:00 Flulaval Quad [id number] IM 04/03/20 10:01 .ONCE ONE Insulin Aspart 1 vial 04/03/20 07:00 04/03/20 06:09 Novolog Vial Sliding Scale - SQ 6 unit ACHS VIC Administration Protocol Pneumococcal 13-Valent Conj Vacc 0.5 ml 04/03/20 10:00 Prevnar 13 Syringe - IM 04/03/20 10:01 .ONCE ONE Zinc Sulfate 220 mg 04/03/20 10:00 Orazinc - PO DAILY VIC ASSESSMENT/PLAN: 50 y/o/m undomiciled and with uncertain PMH who presents toady with sepsis likely 2/2 wound infection. #Sepsis - WBC and lactic acid downtrending - Vancomycin and Zosyn were given in ED - COVID swab sent, pending - Zinc, Vitamin C supplementation - Likely due to wound infection vs OM in 5th toe - Continue Vancomycin and Zosyn - Urine, blood, wound culture - ID consulted, Dr. Lo - utox positive for opiates, however patient denies drug use and was given morphine in the ED #Possible OM of 5th toe R. foot - X-Ray of ankle/foot without evidence of fracture. diffuse swelling noted - CT of lower extremity showing soft tissue air, suspicious for osteomyelitis - MRI ordered b/l lower extremities to r/o osteo - Tylenol for pain 4-6 - Morphine PRN for pain 10 - Podiatry consulted, Dr. Pack - Wounds extending up the right leg up to the mid jin - Vascular surgery and would care consulted, Dr. Bateman - swelling of bilateral lower extremities, Echo ordered for evaluation of cardiac function #Hyperglycemia - Patient presented with blood glucose of 439, now downtrending - 8 units insulin given, now on ISS - HBA1c 10.2 #Hyponatremia - Na normalizing - NS @ 100 ml/hr - Continue to trend - TSH normal #Social work requirements - Patient currently undomiciled, has not been able to seek care or establish care - Social work consult placed #Prophylaxis - Heparin #FEN - monitor and replete lytes as needed - Diabetic diet #Disposition - pending ID and podiatry recs Visit type - Emergency Visit Emergency Visit: Yes ED Registration Date: 04/02/20 Care time: The patient presented to the Emergency Department on the above date and was hospitalized for further evaluation of their emergent condition. - New Patient This patient is new to me today: Yes Date on this admission: 04/03/20 - Critical Care Critical Care patient: No ATTENDING PHYSICIAN STATEMENT I saw and evaluated the patient. I reviewed the resident's note and discussed the case with the resident. I agree with the resident's findings and plan as documented. SUBJECTIVE: OBJECTIVE: ASSESSMENT AND PLAN:
[2020-04-03] MEDS: CHOLECALCIFEROL (VIT D3) 1,000 UNIT (25 MCG) TABLET PO SCH (09:22)
[2020-04-03] MEDS: ASCORBIC ACID 500 MG TABLET (FP) PO SCH (09:22)
[2020-04-03] MEDS: ZINC SULFATE 220 MG CAPSULE (FP) PO SCH (09:23)
[2020-04-03] MEDS ORDERED: FLU VACCINE QUAD 60 MCG/0.5 ML (MDV 19-20) IM ONE (10:00)
[2020-04-03] MEDS ORDERED: PNEUMOC 13-VAL CONJ-DIP CRM/PF 0.5 ML DISP.SYRIN IM ONE (10:00)
[2020-04-03 11:26] LABS: ANISOCYTOSIS 0; MACROCYTOSIS 0; PLATELET ESTIMATE NORMAL
[2020-04-03] MEDS ORDERED: INSULIN (NOVOLOG) ASPART 100 UNITS/ML 10ML VIAL ONE (12:11)
--- NOTE | 2020-04-03 12:41 | CONSULT ---
Consult - text type - Consultation Consultation Note: 50M undomiciled who presents today after bystanders noted he had maggots on his lower extremities. Patient states that both of his legs began to develop pain 2 months ago and gradually worsened. He has had increased difficulty walking over the past few days, and has not been able to ambulate at all the last 2 days. Denies being a diabetic. He denies any fever, cough, congestion, rhinorrhea, dysuria, hematuria, nausea, vomiting, and diarrhea. O: RLE: complete skin breakdown noted on the anterio aspect of the right leg with multiple draining ulcerations noted throughout, seropurulent drainage, warm to touch and edematous, on the left 5th MT head there is a large interspace ulceration which probes deep down to bone, mild purulence is noted, no gross malodor is noted ; grossly palpable pedal pulses noted CT review; destruction of 5th digit and met ?gas?(likely 2/2 to the ulceration site) xray: complete destruction of 5th digit and met; no signs of gas on xray A: left leg cellulitis left leg ulcerations left 5th digit osteo P: Evaluated and reviewed Need to f/u on the MRI will at minimum need amputation of the 5th digit Consult placed for vascular; will need debridement of the leg ulcerations as well Likely infection coming from both the leg and the foot Will f/u on the MRI and plan for amputation Sun/Sunday
--- NOTE | 2020-04-03 12:51 | EKG ---
Test Reason : Blood Pressure : / mmHG Vent. Rate : 128 BPM Atrial Rate : 128 BPM P-R Int : 126 ms QRS Dur : 072 ms QT Int : 316 ms P-R-T Axes : 022 013 030 degrees QTc Int : 461 ms SINUS TACHYCARDIA OTHERWISE NORMAL ECG NO PREVIOUS ECGS AVAILABLE Confirmed by MD STEPHANIE, SEBASTIAN ([id number]) on 04/03/2020 12:51:21 PM Referred By: Confirmed By:SEBASTIAN BROWN MD
--- NOTE | 2020-04-03 17:32 | PN ---
Teaching Attending Note Name of Resident: Ismael Juarez ATTENDING PHYSICIAN STATEMENT I saw and evaluated the patient. I reviewed the resident's note and discussed the case with the resident. I agree with the resident's findings and plan as documented. SUBJECTIVE: R leg/foot pain/tenderness. No fever/chills. OBJECTIVE: Afebrile, Hemodynamically Stable. poor personal hygiene Last Vital Signs Temp Pulse Resp BP Pulse Ox 98.1 F 106 H 20 116/62 98 04/03/20 06:00 04/03/20 06:00 04/03/20 09:00 04/03/20 06:00 04/03/20 09:00 HEENT - Atraumatic, Normocephalic. Heart - S1, S2, RRR Lungs - clear to auscultation Abdomen - Soft, non-tender. Bowel Sounds normal. Extremities - poor hygiene, extensive venous stasis ulcers LLE medial and dorsal aspect of jin and foot. L 5th toe ulcer with serous drainage. Neuro - AAO x 3. Tone/Power normal all extremities. Laboratory Results - last 24 hr 04/02/20 04/02/20 04/02/20 16:00 16:00 19:00 WBC RBC Hgb Hct MCV MCH MCHC RDW Plt Count MPV Absolute Neuts (auto) Neutrophils % Neutrophils % (Manual) 69.3 Band Neutrophils % 5.0 Lymphocytes % Lymphocytes % (Manual) 16.8 Monocytes % Monocytes % (Manual) 7 Eosinophils % Eosinophils % (Manual) 0.0 Basophils % Basophils % (Manual) 0.0 Myelocytes % (Man) 0 Promyelocytes % (Man) 0 Blast Cells % (Manual) 0 Nucleated RBC % 0 Metamyelocytes 1 Hypochromia Platelet Estimate Polychromasia Poikilocytosis Anisocytosis Microcytosis Macrocytosis Sodium Potassium Chloride Carbon Dioxide Anion Gap BUN Creatinine Est GFR (CKD-EPI)AfAm Est GFR (CKD-EPI)NonAf POC Glucometer Random Glucose Hemoglobin A1c % Lactic Acid Calcium Phosphorus Magnesium Total Bilirubin AST ALT Alkaline Phosphatase Total Protein Albumin TSH Urine Color Dk yellow Urine Appearance Clear Urine pH 6.0 Ur Specific [place] 1.039 H Urine Protein Trace Urine Glucose (UA) 3+ H Urine Ketones 1+ H Urine Blood Negative Urine Nitrite Negative Urine Bilirubin Negative Urine Urobilinogen 1.0 Ur Leukocyte Esterase Negative Opiates Screen Methadone Screen Barbiturate Screen Phencyclidine Screen Ur Amphetamines Screen MDMA (Ecstasy) Screen Benzodiazepines Screen Cocaine Screen U Marijuana (THC) Screen Blood Type A POSITIVE Antibody Screen Negative 04/02/20 04/02/20 04/03/20 20:10 23:45 00:35 WBC RBC Hgb Hct MCV MCH MCHC RDW Plt Count MPV Absolute Neuts (auto) Neutrophils % Neutrophils % (Manual) Band Neutrophils % Lymphocytes % Lymphocytes % (Manual) Monocytes % Monocytes % (Manual) Eosinophils % Eosinophils % (Manual) Basophils % Basophils % (Manual) Myelocytes % (Man) Promyelocytes % (Man) Blast Cells % (Manual) Nucleated RBC % Metamyelocytes Hypochromia Platelet Estimate Polychromasia Poikilocytosis Anisocytosis Microcytosis Macrocytosis Sodium Potassium Chloride Carbon Dioxide Anion Gap BUN Creatinine Est GFR (CKD-EPI)AfAm Est GFR (CKD-EPI)NonAf POC Glucometer 343 357 Random Glucose Hemoglobin A1c % Lactic Acid 2.1 H Calcium Phosphorus Magnesium Total Bilirubin AST ALT Alkaline Phosphatase Total Protein Albumin TSH Urine Color Urine Appearance Urine pH Ur Specific [place] Urine Protein Urine Glucose (UA) Urine Ketones Urine Blood Urine Nitrite Urine Bilirubin Urine Urobilinogen Ur Leukocyte Esterase Opiates Screen Methadone Screen Barbiturate Screen Phencyclidine Screen Ur Amphetamines Screen MDMA (Ecstasy) Screen Benzodiazepines Screen Cocaine Screen U Marijuana (THC) Screen Blood Type Antibody Screen 04/03/20 04/03/20 04/03/20 01:35 01:55 05:54 WBC RBC Hgb Hct MCV MCH MCHC RDW Plt Count MPV Absolute Neuts (auto) Neutrophils % Neutrophils % (Manual) Band Neutrophils % Lymphocytes % Lymphocytes % (Manual) Monocytes % Monocytes % (Manual) Eosinophils % Eosinophils % (Manual) Basophils % Basophils % (Manual) Myelocytes % (Man) Promyelocytes % (Man) Blast Cells % (Manual) Nucleated RBC % Metamyelocytes Hypochromia Platelet Estimate Polychromasia Poikilocytosis Anisocytosis Microcytosis Macrocytosis Sodium 128 L Potassium 4.0 Chloride 97 L Carbon Dioxide 24 Anion Gap 7 L BUN 22.0 H Creatinine 1.0 Est GFR (CKD-EPI)AfAm 101.26 Est GFR (CKD-EPI)NonAf 87.37 POC Glucometer 257 Random Glucose 346 H Hemoglobin A1c % Lactic Acid Calcium 7.7 L Phosphorus Magnesium Total Bilirubin AST ALT Alkaline Phosphatase Total Protein Albumin TSH 0.76 Urine Color Urine Appearance Urine pH Ur Specific [place] Urine Protein Urine Glucose (UA) Urine Ketones Urine Blood Urine Nitrite Urine Bilirubin Urine Urobilinogen Ur Leukocyte Esterase Opiates Screen Positive A* Methadone Screen Negative Barbiturate Screen Negative Phencyclidine Screen Negative Ur Amphetamines Screen Negative MDMA (Ecstasy) Screen Negative Benzodiazepines Screen Negative Cocaine Screen Negative U Marijuana (THC) Screen Negative Blood Type Antibody Screen 04/03/20 04/03/20 04/03/20 06:15 06:15 06:15 WBC 15.3 H RBC 3.49 L Hgb 10.2 L Hct 30.0 L D MCV 86.0 MCH 29.2 MCHC 34.0 RDW 13.8 Plt Count 220 D MPV 10.7 Absolute Neuts (auto) 9.6 H Neutrophils % 62.7 Neutrophils % (Manual) 60.0 Band Neutrophils % 0.9 Lymphocytes % 20.7 D Lymphocytes % (Manual) 33.0 D Monocytes % 15.5 H Monocytes % (Manual) 4 Eosinophils % 0.5 D Eosinophils % (Manual) 0.0 Basophils % 0.6 Basophils % (Manual) 0.0 Myelocytes % (Man) 0 Promyelocytes % (Man) 0 Blast Cells % (Manual) 0 Nucleated RBC % 3 H Metamyelocytes 0 D Hypochromia 0 Platelet Estimate Normal Polychromasia 1+ Poikilocytosis 0 Anisocytosis 0 Microcytosis 0 Macrocytosis 0 Sodium 131 L Potassium 3.9 Chloride 98 Carbon Dioxide 24 Anion Gap 9 BUN 19.2 H Creatinine 1.0 Est GFR (CKD-EPI)AfAm 101.26 Est GFR (CKD-EPI)NonAf 87.37 POC Glucometer Random Glucose 231 H Hemoglobin A1c % 10.2 H Lactic Acid Calcium 7.6 L Phosphorus 2.2 L Magnesium 2.5 H Total Bilirubin 0.5 AST 19 ALT 18 Alkaline Phosphatase 98 Total Protein 5.9 L Albumin 1.8 L TSH 0.87 D Urine Color Urine Appearance Urine pH Ur Specific [place] Urine Protein Urine Glucose (UA) Urine Ketones Urine Blood Urine Nitrite Urine Bilirubin Urine Urobilinogen Ur Leukocyte Esterase Opiates Screen Methadone Screen Barbiturate Screen Phencyclidine Screen Ur Amphetamines Screen MDMA (Ecstasy) Screen Benzodiazepines Screen Cocaine Screen U Marijuana (THC) Screen Blood Type Antibody Screen 04/03/20 04/03/20 11:36 17:03 WBC RBC Hgb Hct MCV MCH MCHC RDW Plt Count MPV Absolute Neuts (auto) Neutrophils % Neutrophils % (Manual) Band Neutrophils % Lymphocytes % Lymphocytes % (Manual) Monocytes % Monocytes % (Manual) Eosinophils % Eosinophils % (Manual) Basophils % Basophils % (Manual) Myelocytes % (Man) Promyelocytes % (Man) Blast Cells % (Manual) Nucleated RBC % Metamyelocytes Hypochromia Platelet Estimate Polychromasia Poikilocytosis Anisocytosis Microcytosis Macrocytosis Sodium Potassium Chloride Carbon Dioxide Anion Gap BUN Creatinine Est GFR (CKD-EPI)AfAm Est GFR (CKD-EPI)NonAf POC Glucometer 99 267 Random Glucose Hemoglobin A1c % Lactic Acid Calcium Phosphorus Magnesium Total Bilirubin AST ALT Alkaline Phosphatase Total Protein Albumin TSH Urine Color Urine Appearance Urine pH Ur Specific [place] Urine Protein Urine Glucose (UA) Urine Ketones Urine Blood Urine Nitrite Urine Bilirubin Urine Urobilinogen Ur Leukocyte Esterase Opiates Screen Methadone Screen Barbiturate Screen Phencyclidine Screen Ur Amphetamines Screen MDMA (Ecstasy) Screen Benzodiazepines Screen Cocaine Screen U Marijuana (THC) Screen Blood Type Antibody Screen Home Medications Medication Instructions Recorded NK [No Known Home Medication] 04/02/20 Current Medications Generic Name Dose Route Start Last Admin Trade Name Freq PRN Reason Stop Dose Admin Acetaminophen 650 mg 04/03/20 00:14 Tylenol - PO Q4H PRN PAIN LEVEL 4 - 6 Ascorbic Acid 500 mg 04/03/20 10:00 04/03/20 09:22 Vitamin C - PO 500 mg DAILY VIC Administration Cholecalciferol 1,000 unit 04/03/20 10:00 04/03/20 09:22 Vitamin D3 - PO 1,000 unit DAILY VIC Administration Heparin Sodium (Porcine) 5,000 unit 04/02/20 23:45 04/03/20 14:42 Heparin - SQ 5,000 unit TID VIC Administration Vancomycin HCl 1,250 mg/ 250 mls @ 166.667 mls/hr 04/03/20 04:00 Dextrose IVPB Q12H VIC Protocol Piperacillin Sod/Tazobactam 50 mls @ 100 mls/hr 04/03/20 02:00 Sod 3.375 gm/ Dextrose IVPB Q8H-IV VIC Protocol Piperacillin Sod/Tazobactam 50 mls @ 100 mls/hr 04/03/20 02:00 04/03/20 09:23 Sod 3.375 gm/ Dextrose IVPB 04/03/20 18:29 100 mls/hr Q8H-IV VIC Administration Protocol Influenza Virus Vaccine Quadrival 60 mcg 04/03/20 10:00 Flulaval Quad [id number] IM 04/03/20 10:01 .ONCE ONE Insulin Aspart 1 vial 04/03/20 07:00 04/03/20 17:04 Novolog Vial Sliding Scale - SQ 6 unit ACHS VIC Administration Protocol Pneumococcal 13-Valent Conj Vacc 0.5 ml 04/03/20 10:00 Prevnar 13 Syringe - IM 04/03/20 10:01 .ONCE ONE Zinc Sulfate 220 mg 04/03/20 10:00 04/03/20 09:23 Orazinc - PO 220 mg DAILY VIC Administration ASSESSMENT AND PLAN: 50 yea rold undomiciled male brought to ED after passers-by noticed maggots on his feet. Reports LLE pain/tenderness. CT LLE - suspicion of OM for 5th toe on right foot. 1. Sepsis secondary to RLE ulcer infection ?OM with Bacteremia Leukocytosis, tachycardia MRI to exclude OM L 5th MT Podiatry consulted - for possible amputation pending MRI Vascular Surgery consulted for wound debridement/further management of venous ulcers. Blood Cx positive for Gram positive Bacilli Wound Cx pending. Continue IV Zosyn/Vanco ID consulted. 2. New DM 2 - A1c 10.2 Homeless, does not follow with PCP Maintain on Novolog as per sliding scale for now. Will start Metformin on discharge and refer to PCP/Endocrinology. Diabetes education. 3. Hyponatremia sec to dehydration - resolving with adequate hydration 4. Hypophosphatemia - repleted. DVT Px - Heparin SQ
[2020-04-03] MEDS ORDERED: SODIUM PHOSPHATE - 15 MM in SODIUM CHLORIDE 250 ML IVPB ONE (17:48)
--- NOTE | 2020-04-03 18:43 | CON.ID ---
Consult - History of Present Illness History of Present Illness: 50 y.o. undomiciled male with no known PMH presented with RLE swelling/worsening RLE wounds with drainage. Was found on the street and paramedics were called, reported to have maggots on his ulcers. C/o pain in Rt ankle which he believed he may have fractured and has prevented him from ambulating. In the ER pt noted to have leukocytosis, hyperglycemia, and elevated lactic acid with tachycardia. Currently states he doesn't feel well but no SOB/distress, denies abd pain/diarrhea but is nauseated, no urinary symptoms. - History Source History Provided By: Patient Limitations to Obtaining History: No Limitations - Past Medical History [employer]: No: Alzheimer's, CVA, Dementia, Migraine, Multiple Sclerosis, Peripheral Neuropathy, Parkinson's, Seizure, Syncope, TIA, Vertigo, Other Cardio/Vascular: No: AFIB, Aneurysm, Aortic Insufficiency, Aortic Stenosis, CAD, CHF, Deep Vein Thrombosis, HTN, Hyperlipdemia, [place], Mitral Insufficiency, Mitral Stenosis, Murmur, Pulmonary Hypertension, Other Pulmonary: No: Asthma, Bronchitis, Cancer, COPD, O2 Dependent, Pneumonia, Previously Intubated, Pulmonary Embolus, Pulmonary Fibrosis, Sleep Apnea, Other Gastrointestinal: No: Ascites, Cancer, Constipation, Crohn's Disease, Diverticulitis, Diverticulosis, Esophageal Varices, Gastritis, GERD, GI Bleed, Hemorrhoids, Hiatal Hernia, Inflamatory Bowel Disease, Irritable Bowel Disease, Pancreatitis, Peptic Ulcer Disease, Ulcerative Colitis, Other Hepatobiliary: No: Cirrhosis, Cholelithiasis, Cholecystitis, Choledocholithiasis, Hepatitis A, Hepatitis B, Hepatitis C, Other Renal/: No: Renal Failure, Renal Inusuff, BPH, Cancer, Hematuria, Hemodialysis, Neurogenic Bladder, Renal Calculi, UTI, Other Heme/Onc: No: Anemia, B12 Deficiency, Bleeding Disorder, Cancer, Current Chemotherapy, Current Radiation Therapy, Hemochromatosis, Hypercoaguable State, Myeloproliferative Synd, Sickle Cell Disease, Sickle Cell Trait, Thrombocytopenia, Other Infectious Disease: No: AIDS, C-Diff, Herpes Zoster, HIV, MRSA, STD's, Tuberculosis, VREF, Other Psych: No: Addictions, Anxiety, Bipolar, Depression, Panic, Psychosis, Schizophrenia, Other Musculoskeletal: No: Bursitis, Chronic low back pain, Hemiparesis, Hemiplegia, Osteoarthritis, Paraplegia, Other Rheumatology: No: Fibromyalgia, Gout, Lupus, Rheumatoid Arthritis, Sarcoidosis, Vasculitis, Other ENT: No: Allergic Rhinitis, Sinusitis, Other Endocrine: No: Leslie's Disease, Sam's Disease, Diabetes Insipidus, D iabetes Mellitus, Hyperparathyroidism, Hyperthyroidism, Hypothyroidism, Osteopenia, SIADH, Other Additional Medical History: LE ulcers - Alcohol/Substance Use Hx Alcohol Use: No - Smoking History Smoking history: Never smoked Have you smoked in the past 12 months: No - Social History Usual Living Arrangement: Other (undomiciled x1 yr) Occupation: previously worked as a government professor History of Recent Travel: No Home Medications - Allergies Allergies/Adverse Reactions: Allergies Allergy/AdvReac Type Severity Reaction Status Date / Time No Known Allergies Allergy Verified 04/02/20 16:19 - Home Medications Home Medications: Ambulatory Orders NK [No Known Home Medication] 04/02/20 Review of Systems - Review of Systems Constitutional: reports: Weakness Eyes: reports: No Symptoms HENT: reports: No Symptoms Neck: reports: No Symptoms Cardiovascular: reports: No Symptoms Respiratory: reports: No Symptoms Gastrointestinal: reports: Nausea Genitourinary: reports: No Symptoms Musculoskeletal: reports: Extremity Pain Integumentary: reports: Erythema, Wound Neurological: reports: No Symptoms Endocrine: reports: No Symptoms Hematology/Lymphatic: reports: No Symptoms Psychiatric: reports: No Symptoms Physical Exam Vital Signs: Vital Signs Temperature 98.1 F 04/03/20 06:00 Pulse Rate 106 H 04/03/20 06:00 Respiratory Rate 20 04/03/20 09:00 Blood Pressure 116/62 04/03/20 06:00 O2 Sat by Pulse Oximetry (%) 98 04/03/20 09:00 Constitutional: Yes: No Distress Eyes: Yes: Conjunctiva Clear, EOM Intact HENT: Yes: Atraumatic Cardiovascular: Yes: Tachycardia Respiratory: Yes: CTA Bilaterally Gastrointestinal: Yes: Normal Bowel Sounds, Soft Renal/: Yes: WNL Musculoskeletal: Yes: WNL Extremities: Yes: Erythema Edema: Yes Edema: RLE: 1+ Wound/Incision: Yes: Other (RLE edema, warmth, tenderness, ulcers with serosanguinous drainage tibial/calf, darkened discoloration of toes) Neurological: Yes: Alert Psychiatric: Yes: Alert Labs: CBC, BMP 04/03/20 06:15 04/03/20 06:15 Laboratory Last Values WBC 15.3 K/mm3 (4.0-10.0) H 04/03/20 06:15 RBC 3.49 M/mm3 (4.00-5.60) L 04/03/20 06:15 Hgb 10.2 GM/dL (11.7-16.9) L 04/03/20 06:15 Hct 30.0 % (35.4-49) L D 04/03/20 06:15 MCV 86.0 fl (80-96) 04/03/20 06:15 MCH 29.2 pg (25.7-33.7) 04/03/20 06:15 MCHC 34.0 g/dl (32.0-35.9) 04/03/20 06:15 RDW 13.8 % (11.9-15.9) 04/03/20 06:15 Plt Count 220 K/MM3 (134-434) D 04/03/20 06:15 MPV 10.7 fl (7.5-11.1) 04/03/20 06:15 Absolute Neuts (auto) 9.6 K/mm3 (1.5-8.0) H 04/03/20 06:15 Neutrophils % 62.7 % (42.8-82.8) 04/03/20 06:15 Neutrophils % (Manual) 60.0 % (42.8-82.8) 04/03/20 06:15 Band Neutrophils % 0.9 % 04/03/20 06:15 Lymphocytes % 20.7 % (8-40) D 04/03/20 06:15 Lymphocytes % (Manual) 33.0 % (8-40) D 04/03/20 06:15 Monocytes % 15.5 % (3.8-10.2) H 04/03/20 06:15 Monocytes % (Manual) 4 % (3.8-10.2) 04/03/20 06:15 Eosinophils % 0.5 % (0-4.5) D 04/03/20 06:15 Eosinophils % (Manual) 0.0 % (0-4.5) 04/03/20 06:15 Basophils % 0.6 % (0-2.0) 04/03/20 06:15 Basophils % (Manual) 0.0 % (0-2.0) 04/03/20 06:15 Myelocytes % (Man) 0 % (0-2) 04/03/20 06:15 Promyelocytes % (Man) 0 % (0-2) 04/03/20 06:15 Blast Cells % (Manual) 0 % (0-0) 04/03/20 06:15 Nucleated RBC % 3 % (0-0) H 04/03/20 06:15 Metamyelocytes 0 % (0-2) D 04/03/20 06:15 Hypochromia 0 04/03/20 06:15 Platelet Estimate Normal 04/03/20 06:15 Polychromasia 1+ 04/03/20 06:15 Poikilocytosis 0 04/03/20 06:15 Anisocytosis 0 04/03/20 06:15 Microcytosis 0 04/03/20 06:15 Macrocytosis 0 04/03/20 06:15 PT with INR 16.40 SEC (9.7-13.0) H 04/02/20 16:00 INR 1.39 (0.83-1.09) H 04/02/20 16:00 PTT (Actin FS) 35.0 SECONDS (25.2-36.5) 04/02/20 16:00 Sodium 131 mmol/L (136-145) L 04/03/20 06:15 Potassium 3.9 mmol/L (3.5-5.1) 04/03/20 06:15 Chloride 98 mmol/L (98-107) 04/03/20 06:15 Carbon Dioxide 24 mmol/L (21-32) 04/03/20 06:15 Anion Gap 9 MMOL/L (8-16) 04/03/20 06:15 BUN 19.2 mg/dL (7-18) H 04/03/20 06:15 Creatinine 1.0 mg/dL (0.55-1.3) 04/03/20 06:15 Est GFR (CKD-EPI)AfAm 101.26 04/03/20 06:15 Est GFR (CKD-EPI)NonAf 87.37 04/03/20 06:15 POC Glucometer 267 UNITS (80-120) 04/03/20 17:03 Random Glucose 231 mg/dL (74-106) H 04/03/20 06:15 Hemoglobin A1c % 10.2 % (4.2-6.3) H 04/03/20 06:15 Lactic Acid 2.1 mmol/L (0.4-2.0) H 04/02/20 20:10 Calcium 7.6 mg/dL (8.5-10.1) L 04/03/20 06:15 Phosphorus 2.2 mg/dL (2.5-4.9) L 04/03/20 06:15 Magnesium 2.5 mg/dL (1.8-2.4) H 04/03/20 06:15 Total Bilirubin 0.5 mg/dL (0.2-1) 04/03/20 06:15 AST 19 U/L (15-37) 04/03/20 06:15 ALT 18 U/L (13-61) 04/03/20 06:15 Alkaline Phosphatase 98 U/L (45-117) 04/03/20 06:15 Creatine Kinase 115 U/L (26-308) 04/02/20 16:00 Troponin I < 0.02 ng/ml (0.00-0.05) 04/02/20 16:00 Total Protein 5.9 g/dl (6.4-8.2) L 04/03/20 06:15 Albumin 1.8 g/dl (3.4-5.0) L 04/03/20 06:15 TSH 0.87 uIU/ml (0.358-3.74) D 04/03/20 06:15 Urine Color Dk yellow 04/02/20 19:00 Urine Appearance Clear 04/02/20 19:00 Urine pH 6.0 (5.0-8.0) 04/02/20 19:00 Ur Specific [place] 1.039 (1.010-1.035) H 04/02/20 19:00 Urine Protein Trace (NEGATIVE) 04/02/20 19:00 Urine Glucose (UA) 3+ (NEGATIVE) H 04/02/20 19:00 Urine Ketones 1+ (NEGATIVE) H 04/02/20 19:00 Urine Blood Negative (NEGATIVE) 04/02/20 19:00 Urine Nitrite Negative (NEGATIVE) 04/02/20 19:00 Urine Bilirubin Negative (NEGATIVE) 04/02/20 19:00 Urine Urobilinogen 1.0 mg/dL (0.2-1.0) 04/02/20 19:00 Ur Leukocyte Esterase Negative (NEGATIVE) 04/02/20 19:00 Opiates Screen Positive ng/ml (AMGMHO=360) A* 04/03/20 01:35 Methadone Screen Negative ng/ml (DZDRIJ=551) 04/03/20 01:35 Barbiturate Screen Negative ng/ml (SLAMTZ=157) 04/03/20 01:35 Phencyclidine Screen Negative ng/ml (CUTOFF=25) 04/03/20 01:35 Ur Amphetamines Screen Negative ng/ml (SSZLSY=488) 04/03/20 01:35 MDMA (Ecstasy) Screen Negative ng/ml (TWQCHM=710) 04/03/20 01:35 Benzodiazepines Screen Negative ng/ml (LUKTQV=598) 04/03/20 01:35 Cocaine Screen Negative ng/ml (TNKZJC=264) 04/03/20 01:35 U Marijuana (THC) Screen Negative ng/ml (CUTOFF=50) 04/03/20 01:35 Blood Type A POSITIVE 04/02/20 16:00 Antibody Screen Negative 04/02/20 16:00 Microbiology 04/02/20 16:00 Blood - Peripheral Venous Blood Culture - Preliminary Pending Organism 04/03/20 01:35 Leg - Right Lower Gram Stain - Final 04/02/20 16:00 Blood - Peripheral Venous Blood Culture - Preliminary Pending Organism Imaging - Results Chest X-ray: Report Reviewed Cat Scan: Report Reviewed Problem List - Problems (1) Homeless single person Code(s): Z59.0 - HOMELESSNESS (2) Hyperglycemia Code(s): R73.9 - HYPERGLYCEMIA, UNSPECIFIED (3) Lactic acid acidosis Code(s): E87.2 - ACIDOSIS (4) Sepsis Code(s): A41.9 - SEPSIS, UNSPECIFIED ORGANISM Qualifiers: Sepsis type: sepsis due to unspecified organism Sepsis acute organ dysfunction status: unspecified Qualified Code(s): A41.9 - Sepsis, unspecified organism (5) Trench foot Code(s): T69.029A - IMMERSION FOOT, UNSPECIFIED FOOT, INITIAL ENCOUNTER Qualifiers: Encounter type: initial encounter Laterality: unspecified laterality Qualified Code(s): T69.029A - Immersion foot, unspecified foot, initial encounter Assessment/Plan 50 y.o. undomiciled male with no known PMH presented with RLE swelling/worsening RLE wounds with drainage Sepsis Bacteremia RLE cellulitis with infected LE ulcers Rt 5th proximal phalanx OM Hyperglycemia/elevated HgAIC - DM Homeless -- continue Zosyn/Vancomycin, Vancomycin trough prior to 4th dose, monitor renal function -- follow up blood culture isolates, wound cultures -- lactic acid trending down -- check esr/crp -- Podiatry following -- Vascular evaluation -- wound care -- monitor wbc trend/vitals -- follow up LE MRI results
[2020-04-03] MEDS ORDERED: PT OWN MED DRAWER 7, Y5N ONE (19:54)
[2020-04-04] MEDS ORDERED: DEXTROSE 5%-WATER - 50 ML IVPB ONE ×3 (01:21→17:30)
[2020-04-04] MEDS ORDERED: PIPERACILLIN/TAZOBACTAM 3.375 GM VIAL IVPB ONE ×3 (01:21→17:30)
[2020-04-04] MEDS: PIPERACILLIN/TAZOB 3.375 GM 3.375 GM in DEXTROSE 5%-WATER - 50 ML IVPB SCH ×3 (01:26→17:35)
[2020-04-04] MEDS: VANCOMYCIN HCL 1,250 MG in DEXTROSE 5%-WATER - 250 ML IVPB SCH ×2 (03:40→18:11)
[2020-04-04] MEDS: HEPARIN NA (PORCINE) 5,000 UNITS/ML 1ML VIAL SQ SCH ×2 (05:57→14:19)
[2020-04-04] MEDS: INSULIN SLIDING SCALE (NOVOLOG) 1 VIAL SQ SCH ×4 (06:00→21:30)
[2020-04-04 09:12] LABS: BASO % 0.6 % (0-2.0); EOS % 0.9 % (0-4.5); HEMOGLOBIN 9.2 GM/dL (11.7-16.9); LYMPH % 25.8 % (8-40); MCH 29.2 pg (25.7-33.7); MCHC 34.1 g/dl (32.0-35.9); MEAN CELL VOLUME 85.7 fl (80-96); MEAN PLT VOLUME 9.6 fl (7.5-11.1); MONO % 11.7 % (3.8-10.2); PLATELET COUNT 205 K/MM3 (134-434); RBC 3.15 M/mm3 (4.00-5.60); RDW 13.7 % (11.9-15.9); WHITE BLOOD COUNT 9.1 K/mm3 (4.0-10.0)
[2020-04-04] MEDS: CHOLECALCIFEROL (VIT D3) 1,000 UNIT (25 MCG) TABLET PO SCH (09:36)
[2020-04-04] MEDS: ZINC SULFATE 220 MG CAPSULE (FP) PO SCH (09:36)
[2020-04-04] MEDS: ASCORBIC ACID 500 MG TABLET (FP) PO SCH (09:36)
[2020-04-04 11:10] LABS: ANISOCYTOSIS 0; MACROCYTOSIS 0; PLATELET ESTIMATE NORMAL
--- NOTE | 2020-04-04 11:33 | PN ---
Progress Note (short form) - Note Progress Note: Podiatry F/U: Seen/evaluated at bedside NAD. Pain controlled, denies F/V/N/C/SOB/CP. Afebrile. BRIAN: R foot: pedal pulses palpable, TG wnl, CFT brisk to all toes. There is a fourth interspace ulcer, seropurulent drainage, probes to bone; no soft tissue crepitus, no fluctuance, no streaking ascending cellulitis. There is gross digital edema to the fifth digit. There is significant venous stasis changes with skin slough to the lower leg, mostly fibrotic, maggots present. Chronic venous swelling. R foot MRI: osteomyelitis fifth digit Imp: 50 year old diabetic male with right foot DFI and osteomyelitis fifth digit 1. IV abx per infectious disease 2. Continue local care 3. MRI reviewed with patient. Treatment options reviewed with patient. Amputation versus 6 weeks IV abx for treatment of osteomyelitis. He is refusing amputation and dressing at this stage. 4. Will continue to follow Edson Pack DPM
[2020-04-04] MEDS ORDERED: INSULIN (NOVOLOG) ASPART 100 UNITS/ML 10ML VIAL ONE (12:00)
[2020-04-04 14:05] LABS: ALBUMIN 1.8 g/dl (3.4-5.0); BILIRUBIN,TOTAL 0.4 mg/dL (0.2-1); BLOOD UREA NITROGEN 10.5 mg/dL (7-18); CALCIUM 7.4 mg/dL (8.5-10.1); CREATININE 0.8 mg/dL (0.55-1.3); POTASSIUM 3.7 mmol/L (3.5-5.1); TOT PROT 6.2 g/dl (6.4-8.2)
--- NOTE | 2020-04-04 16:22 | PN ---
Teaching Attending Note Name of Resident: Castillo Escalante ATTENDING PHYSICIAN STATEMENT I saw and evaluated the patient. I reviewed the resident's note and discussed the case with the resident. I agree with the resident's findings and plan as documented. SUBJECTIVE: R leg/foot pain/tenderness improving. No fever/chills. OBJECTIVE: Afebrile, Hemodynamically Stable. Poor personal hygiene. AAO x 3. Last Vital Signs Temp Pulse Resp BP Pulse Ox 98 F 97 H 18 125/70 100 04/04/20 14:00 04/04/20 14:00 04/04/20 14:00 04/04/20 14:00 04/04/20 09:00 Heart - S1, S2, RRR Lungs - clear to auscultation Abdomen - Soft, non-tender. Bowel Sounds normal. Extremities - poor hygiene, extensive venous stasis ulcers LLE medial and dorsal aspect of jin and foot. L 5th toe ulcer with serous drainage. Neuro - AAO x 3. Tone/Power normal all extremities. Laboratory Results - last 24 hr 04/02/20 04/03/20 04/03/20 17:50 17:03 21:22 WBC RBC Hgb Hct MCV MCH MCHC RDW Plt Count MPV Absolute Neuts (auto) Neutrophils % Neutrophils % (Manual) Band Neutrophils % Lymphocytes % Lymphocytes % (Manual) Monocytes % Monocytes % (Manual) Eosinophils % Eosinophils % (Manual) Basophils % Basophils % (Manual) Myelocytes % (Man) Promyelocytes % (Man) Blast Cells % (Manual) Nucleated RBC % Metamyelocytes Hypochromia Platelet Estimate Polychromasia Poikilocytosis Anisocytosis Microcytosis Macrocytosis ESR Sodium Potassium Chloride Carbon Dioxide Anion Gap BUN Creatinine Est GFR (CKD-EPI)AfAm Est GFR (CKD-EPI)NonAf POC Glucometer 267 244 Random Glucose Calcium Iron Ferritin Total Bilirubin AST ALT Alkaline Phosphatase C-Reactive Protein Total Protein Albumin Vitamin B12 Serum Folate COVID-19 (DANAE) Not detected 04/04/20 04/04/20 04/04/20 05:57 08:38 08:38 WBC 9.1 RBC 3.15 L Hgb 9.2 L Hct 27.0 L MCV 85.7 MCH 29.2 MCHC 34.1 RDW 13.7 Plt Count 205 MPV 9.6 D Absolute Neuts (auto) 5.6 Neutrophils % 61.0 Neutrophils % (Manual) 60.2 Band Neutrophils % 2.1 Lymphocytes % 25.8 D Lymphocytes % (Manual) 19.4 D Monocytes % 11.7 H Monocytes % (Manual) 8 D Eosinophils % 0.9 Eosinophils % (Manual) 1.0 D Basophils % 0.6 Basophils % (Manual) 0.0 Myelocytes % (Man) 1 D Promyelocytes % (Man) 0 Blast Cells % (Manual) 0 Nucleated RBC % 3 H Metamyelocytes 2 D Hypochromia 0 Platelet Estimate Normal Polychromasia 1+ Poikilocytosis 0 Anisocytosis 0 Microcytosis 0 Macrocytosis 0 ESR Sodium Potassium Chloride Carbon Dioxide Anion Gap BUN Creatinine Est GFR (CKD-EPI)AfAm Est GFR (CKD-EPI)NonAf POC Glucometer 270 Random Glucose Calcium Iron Ferritin Total Bilirubin AST ALT Alkaline Phosphatase C-Reactive Protein 10.6 H Total Protein Albumin Vitamin B12 Serum Folate COVID-19 (DANAE) 04/04/20 04/04/20 04/04/20 08:38 11:36 12:15 WBC RBC Hgb Hct MCV MCH MCHC RDW Plt Count MPV Absolute Neuts (auto) Neutrophils % Neutrophils % (Manual) Band Neutrophils % Lymphocytes % Lymphocytes % (Manual) Monocytes % Monocytes % (Manual) Eosinophils % Eosinophils % (Manual) Basophils % Basophils % (Manual) Myelocytes % (Man) Promyelocytes % (Man) Blast Cells % (Manual) Nucleated RBC % Metamyelocytes Hypochromia Platelet Estimate Polychromasia Poikilocytosis Anisocytosis Microcytosis Macrocytosis ESR 95 H Sodium 132 L Potassium 3.7 Chloride 100 Carbon Dioxide 27 Anion Gap 5 L BUN 10.5 Creatinine 0.8 Est GFR (CKD-EPI)AfAm 120.72 Est GFR (CKD-EPI)NonAf 104.16 POC Glucometer 251 Random Glucose 234 H Calcium 7.4 L Iron 28 L Ferritin 438.8 H Total Bilirubin 0.4 AST 32 ALT 30 Alkaline Phosphatase 110 C-Reactive Protein Total Protein 6.2 L Albumin 1.8 L Vitamin B12 748 Serum Folate 7 COVID-19 (DANAE) Current Medications Generic Name Dose Route Start Last Admin Trade Name Freq PRN Reason Stop Dose Admin Acetaminophen 650 mg 04/03/20 00:14 Tylenol - PO Q4H PRN PAIN LEVEL 4 - 6 Ascorbic Acid 500 mg 04/03/20 10:00 04/04/20 09:36 Vitamin C - PO 500 mg DAILY VIC Administration Cholecalciferol 1,000 unit 04/03/20 10:00 04/04/20 09:36 Vitamin D3 - PO 1,000 unit DAILY VIC Administration Heparin Sodium (Porcine) 5,000 unit 04/02/20 23:45 04/04/20 14:19 Heparin - SQ 5,000 unit TID VIC Administration Vancomycin HCl 1,250 mg/ 250 mls @ 166.667 mls/hr 04/04/20 04:00 04/04/20 03:40 Dextrose IVPB 166.667 mls/hr BID@0400,1600 VIC Administration Protocol Piperacillin Sod/Tazobactam 50 mls @ 100 mls/hr 04/03/20 18:00 04/04/20 09:36 Sod 3.375 gm/ Dextrose IVPB 100 mls/hr Q8H-IV VIC Administration Protocol Influenza Virus Vaccine Quadrival 60 mcg 04/03/20 10:00 Flulaval Quad [id number] IM 04/03/20 10:01 .ONCE ONE Insulin Aspart 1 vial 04/03/20 07:00 04/04/20 12:34 Novolog Vial Sliding Scale - SQ 6 unit ACHS VIC Administration Protocol Pneumococcal 13-Valent Conj Vacc 0.5 ml 04/03/20 10:00 Prevnar 13 Syringe - IM 04/03/20 10:01 .ONCE ONE Zinc Sulfate 220 mg 04/03/20 10:00 04/04/20 09:36 Orazinc - PO 220 mg DAILY VIC Administration Home Medications Medication Instructions Recorded NK [No Known Home Medication] 04/02/20 ASSESSMENT AND PLAN: 50 year old undomiciled male brought to ED after passers-by noticed maggots on his feet. Reports LLE pain/tenderness. CT LLE - suspicion of OM for 5th toe on right foot. 1. Sepsis secondary to RLE OM 5th toe with Cellulitis of Foot and Bacteremia Leukocytosis, tachycardia improved. MRI - OM L 5th MT Vascular Surgery consulted for wound debridement/further management of venous ulcers. Blood Cx positive for Gram positive Bacilli/Gram positve cocci/Group D strep or enterococcus Wound Cx - NLFGNB x 2. Awaiting final ID and Sensitivities. Repeat Blood Cultures drawn. Continue IV Zosyn/Vanco ID following. Podiatry consulted - patient declines amputation in favor of 6 weeks IV Abx therapy. 2. New DM 2 - A1c 10.2 Homeless, does not follow with PCP Maintain on Novolog as per sliding scale for now. Will start Metformin on discharge and refer to PCP/Endocrinology. Diabetes education. 3. Hyponatremia sec to dehydration - resolving with adequate hydration 4. Hypophosphatemia - repleted. 5. Anemia, normocytic. Drop in H/H likely dilutional. No evidence of blood loss. ?Sec to Acute Sepsis/Chronic Disease. B12/Ferritin/Folate wnl. Will send FOBT. DVT Px - Heparin SQ held
--- NOTE | 2020-04-04 17:57 | PN ---
Physical Exam: SUBJECTIVE: Patient seen and examined. Afebrile, asymptomatic. no overnight issues or events. Hb dropped 1 U. OBJECTIVE: Vital Signs Period Temp Pulse Resp BP Sys/Perkins Pulse Ox Last 24 Hr 98 F-98.3 F 86-97 18-18 125-136/70-78 100-100 GENERAL: The patient is awake, alert, and fully oriented, in no acute distress. EYES: PERRL, extraocular movements intact, sclera anicteric, conjunctiva clear. No ptosis. NECK: Trachea midline, full range of motion, supple. LUNGS: Breath sounds equal, clear to auscultation bilaterally, no wheezes, no crackles, HEART: Regular rate and rhythm, S1, S2 without murmur, rub or gallop. ABDOMEN: Soft, nontender, nondistended, normoactive bowel sounds, no guarding EXTREMITIES: 2+ pulses, warm, well-perfused, no edema. Poor hygiene, extensive venous stasis ulcers LLE medial and dorsal aspect of jin and foot. R 5th toe ulcer with serous drainage. PSYCH: Normal mood, normal affect. SKIN: Warm, dry, normal turgor, no rashes or lesions noted Laboratory Results - last 24 hr 04/02/20 04/03/20 04/04/20 17:50 21:22 05:57 WBC RBC Hgb Hct MCV MCH MCHC RDW Plt Count MPV Absolute Neuts (auto) Neutrophils % Neutrophils % (Manual) Band Neutrophils % Lymphocytes % Lymphocytes % (Manual) Monocytes % Monocytes % (Manual) Eosinophils % Eosinophils % (Manual) Basophils % Basophils % (Manual) Myelocytes % (Man) Promyelocytes % (Man) Blast Cells % (Manual) Nucleated RBC % Metamyelocytes Hypochromia Platelet Estimate Polychromasia Poikilocytosis Anisocytosis Microcytosis Macrocytosis ESR Sodium Potassium Chloride Carbon Dioxide Anion Gap BUN Creatinine Est GFR (CKD-EPI)AfAm Est GFR (CKD-EPI)NonAf POC Glucometer 244 270 Random Glucose Calcium Iron Ferritin Total Bilirubin AST ALT Alkaline Phosphatase C-Reactive Protein Total Protein Albumin Vitamin B12 Serum Folate COVID-19 (DANAE) Not detected 04/04/20 04/04/20 04/04/20 08:38 08:38 08:38 WBC 9.1 RBC 3.15 L Hgb 9.2 L Hct 27.0 L MCV 85.7 MCH 29.2 MCHC 34.1 RDW 13.7 Plt Count 205 MPV 9.6 D Absolute Neuts (auto) 5.6 Neutrophils % 61.0 Neutrophils % (Manual) 60.2 Band Neutrophils % 2.1 Lymphocytes % 25.8 D Lymphocytes % (Manual) 19.4 D Monocytes % 11.7 H Monocytes % (Manual) 8 D Eosinophils % 0.9 Eosinophils % (Manual) 1.0 D Basophils % 0.6 Basophils % (Manual) 0.0 Myelocytes % (Man) 1 D Promyelocytes % (Man) 0 Blast Cells % (Manual) 0 Nucleated RBC % 3 H Metamyelocytes 2 D Hypochromia 0 Platelet Estimate Normal Polychromasia 1+ Poikilocytosis 0 Anisocytosis 0 Microcytosis 0 Macrocytosis 0 ESR 95 H Sodium Potassium Chloride Carbon Dioxide Anion Gap BUN Creatinine Est GFR (CKD-EPI)AfAm Est GFR (CKD-EPI)NonAf POC Glucometer Random Glucose Calcium Iron Ferritin Total Bilirubin AST ALT Alkaline Phosphatase C-Reactive Protein 10.6 H Total Protein Albumin Vitamin B12 Serum Folate COVID-19 (DANAE) 04/04/20 04/04/20 04/04/20 11:36 12:15 17:02 WBC RBC Hgb Hct MCV MCH MCHC RDW Plt Count MPV Absolute Neuts (auto) Neutrophils % Neutrophils % (Manual) Band Neutrophils % Lymphocytes % Lymphocytes % (Manual) Monocytes % Monocytes % (Manual) Eosinophils % Eosinophils % (Manual) Basophils % Basophils % (Manual) Myelocytes % (Man) Promyelocytes % (Man) Blast Cells % (Manual) Nucleated RBC % Metamyelocytes Hypochromia Platelet Estimate Polychromasia Poikilocytosis Anisocytosis Microcytosis Macrocytosis ESR Sodium 132 L Potassium 3.7 Chloride 100 Carbon Dioxide 27 Anion Gap 5 L BUN 10.5 Creatinine 0.8 Est GFR (CKD-EPI)AfAm 120.72 Est GFR (CKD-EPI)NonAf 104.16 POC Glucometer 251 204 Random Glucose 234 H Calcium 7.4 L Iron 28 L Ferritin 438.8 H Total Bilirubin 0.4 AST 32 ALT 30 Alkaline Phosphatase 110 C-Reactive Protein Total Protein 6.2 L Albumin 1.8 L Vitamin B12 748 Serum Folate 7 COVID-19 (DANAE) Active Medications Generic Name Dose Route Start Last Admin Trade Name Freq PRN Reason Stop Dose Admin Acetaminophen 650 mg 04/03/20 00:14 Tylenol - PO Q4H PRN PAIN LEVEL 4 - 6 Ascorbic Acid 500 mg 04/03/20 10:00 04/04/20 09:36 Vitamin C - PO 500 mg DAILY VIC Administration Cholecalciferol 1,000 unit 04/03/20 10:00 04/04/20 09:36 Vitamin D3 - PO 1,000 unit DAILY VIC Administration Heparin Sodium (Porcine) 5,000 unit 04/02/20 23:45 04/04/20 14:19 Heparin - SQ 5,000 unit TID VIC Administration Vancomycin HCl 1,250 mg/ 250 mls @ 166.667 mls/hr 04/04/20 04:00 04/04/20 03:40 Dextrose IVPB 166.667 mls/hr BID@0400,1600 REPLACED BY [facility] Administration Protocol Piperacillin Sod/Tazobactam 50 mls @ 100 mls/hr 04/03/20 18:00 04/04/20 17:35 Sod 3.375 gm/ Dextrose IVPB 100 mls/hr Q8H-IV VIC Administration Protocol Influenza Virus Vaccine Quadrival 60 mcg 04/03/20 10:00 Flulaval Quad [id number] IM 04/03/20 10:01 .ONCE ONE Insulin Aspart 1 vial 04/03/20 07:00 04/04/20 17:36 Novolog Vial Sliding Scale - SQ 4 unit ACHS REPLACED BY [facility] Administration Protocol Pneumococcal 13-Valent Conj Vacc 0.5 ml 04/03/20 10:00 Prevnar 13 Syringe - IM 04/03/20 10:01 .ONCE ONE Zinc Sulfate 220 mg 04/03/20 10:00 04/04/20 09:36 Orazinc - PO 220 mg DAILY VIC Administration ASSESSMENT/PLAN: 50 y/o undomiciled M brought to ED after passers by noticed maggots on his feet admitted for sepsis 2/2 to RLE OM confirmed on CT #Sepsis 2/2 RLE OM 5th toe with Cellulitis of Foot Leukocytosis, tachycardia improved. CT LLE: suspicion of OM for 5th toe on right foot. MRI: OM R 5th toe and cellulitis Vascular Surgery consulted for wound debridement/further management of venous ulcers Blood Cx positive for Gram positive Bacilli/Gram positve cocci/Group D strep or enterococcus Wound Cx- NLFGNB x 2. Awaiting final ID and Sensitivities. Repeat Blood Cultures drawn. Continue IV Zosyn/Vanco- ID on case Podiatry consulted - patient declines amputation in favor of 6 weeks IV Abx therapy. Podiatry recom amputation for sunday. Will discuss with pt risks and benefits #New DM 2 A1c 10.2 BGM ISS Will start Metformin on discharge and refer to PCP/Endocrinology. Diabetes education. #Hyponatremia 2/2 dehydration now resolved #Hypophosphatemia repleted #Normocytic Anemia Drop in H/H likely dilutional vs acute disease process No evidence of blood loss B12/Ferritin/Folate wnl Will send FOBT. DVT ppx Heparin SQ held FEN monitor lytes diabetic diet Dispo: monitor Hb, f/u podiatry and vascular, cont abx, f/u FOBT Visit type - Emergency Visit Emergency Visit: Yes ED Registration Date: 04/02/20 Care time: The patient presented to the Emergency Department on the above date and was hospitalized for further evaluation of their emergent condition. - New Patient This patient is new to me today: Yes Date on this admission: 05/12/20 - Critical Care Critical Care patient: No - Discharge Referral Referred to [facility] No ATTENDING PHYSICIAN STATEMENT I saw and evaluated the patient. I reviewed the resident's note and discussed the case with the resident. I agree with the resident's findings and plan as documented. SUBJECTIVE: OBJECTIVE: ASSESSMENT AND PLAN:
[2020-04-04] MEDS ORDERED: PT OWN MED DRAWER 7, Y5N ONE (18:05)
[2020-04-05] MEDS ORDERED: PIPERACILLIN/TAZOBACTAM 3.375 GM VIAL IVPB ONE ×3 (00:51→17:18)
[2020-04-05] MEDS ORDERED: DEXTROSE 5%-WATER - 50 ML IVPB ONE ×3 (00:51→17:18)
[2020-04-05] MEDS: PIPERACILLIN/TAZOB 3.375 GM 3.375 GM in DEXTROSE 5%-WATER - 50 ML IVPB SCH ×3 (01:30→17:23)
[2020-04-05] MEDS: VANCOMYCIN HCL 1,250 MG in DEXTROSE 5%-WATER - 250 ML IVPB SCH ×2 (03:39→16:23)
[2020-04-05] MEDS: INSULIN SLIDING SCALE (NOVOLOG) 1 VIAL SQ SCH ×4 (06:04→21:56)
[2020-04-05 08:11] LABS: BASO % 0.4 % (0-2.0); EOS % 0.9 % (0-4.5); HEMATOCRIT 26.8 % (35.4-49); HEMOGLOBIN 9.3 GM/dL (11.7-16.9); LYMPH % 27.1 % (8-40); MCH 29.7 pg (25.7-33.7); MCHC 34.6 g/dl (32.0-35.9); MEAN CELL VOLUME 85.8 fl (80-96); MEAN PLT VOLUME 9.5 fl (7.5-11.1); MONO % 9.2 % (3.8-10.2); NEUT % 62.4 % (42.8-82.8); PLATELET COUNT 224 K/MM3 (134-434); RBC 3.13 M/mm3 (4.00-5.60); RDW 13.5 % (11.9-15.9); WHITE BLOOD COUNT 7.6 K/mm3 (4.0-10.0)
[2020-04-05 08:36] LABS: ALBUMIN 1.8 g/dl (3.4-5.0); BILIRUBIN,TOTAL 0.4 mg/dL (0.2-1); BLOOD UREA NITROGEN 6.8 mg/dL (7-18); CALCIUM 7.7 mg/dL (8.5-10.1); CREATININE 0.9 mg/dL (0.55-1.3); MAGNESIUM 2.5 mg/dL (1.8-2.4); PHOSPHOROUS 3.1 mg/dL (2.5-4.9); POTASSIUM 3.7 mmol/L (3.5-5.1); TOT PROT 6.7 g/dl (6.4-8.2)
[2020-04-05] MEDS: ASCORBIC ACID 500 MG TABLET (FP) PO SCH (10:03)
[2020-04-05] MEDS: ZINC SULFATE 220 MG CAPSULE (FP) PO SCH (10:03)
[2020-04-05] MEDS: CHOLECALCIFEROL (VIT D3) 1,000 UNIT (25 MCG) TABLET PO SCH (10:03)
[2020-04-05 10:43] LABS: ANISOCYTOSIS 1+; MACROCYTOSIS 0; PLATELET ESTIMATE NORMAL
--- NOTE | 2020-04-05 10:58 | PN ---
Progress Note (short form) - Note Progress Note: Podiatry F/U: Seen/evaluated at bedside NAD. Pain controlled, Denies any other complaints. BRIAN: R foot: pedal pulses palpable, TG wnl, CFT brisk to all toes. There is a fourth interspace ulcer, seropurulent drainage, probes to bone; no soft tissue crepitus, no fluctuance, no streaking ascending cellulitis. There is gross digital edema to the fifth digit. There is significant venous stasis changes with skin slough to the lower leg, mostly fibrotic. Chronic venous swelling. R foot MRI: osteomyelitis fifth digit Imp: 50 year old diabetic male with right foot DFI and osteomyelitis fifth digit in depth discussion with patient on risks and benefits of having the amputatin adamantly refusing any form of surgical intervention. 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 thank you for this consult.
--- NOTE | 2020-04-05 12:47 | PN ---
Progress Note, Physician History of Present Illness: Pt is alert and fully responsive without distress. States he has pain in RLE with chronic ulcers. Less RLE edema. Afebrile. - Current Medication List Current Medications: Active Medications Acetaminophen (Tylenol -) 650 mg PO Q4H PRN PRN Reason: PAIN LEVEL 4 - 6 Ascorbic Acid (Vitamin C -) 500 mg PO DAILY [facility] Last Admin: 04/05/20 10:03 Dose: 500 mg Documented by: Cholecalciferol (Vitamin D3 -) 1,000 unit PO DAILY [facility] Last Admin: 04/05/20 10:03 Dose: 1,000 unit Documented by: Heparin Sodium (Porcine) (Heparin -) 5,000 unit SQ TID [facility] Last Admin: 04/04/20 14:19 Dose: 5,000 unit Documented by: Vancomycin HCl 1,250 mg/ (Dextrose) 250 mls @ 166.667 mls/hr IVPB BID@0400,1600 [facility]; Protocol Last Admin: 04/05/20 03:39 Dose: 166.667 mls/hr Documented by: Piperacillin Sod/Tazobactam (Sod 3.375 gm/ Dextrose) 50 mls @ 100 mls/hr IVPB Q8H-IV [facility]; Protocol Last Admin: 04/05/20 10:03 Dose: 100 mls/hr Documented by: Influenza Virus Vaccine Quadrival (Flulaval Quad [id number]) 60 mcg IM .ONCE ONE Stop: 04/03/20 10:01 Insulin Aspart (Novolog Vial Sliding Scale -) 1 vial SQ ACHS [facility]; Protocol Last Admin: 04/05/20 06:04 Dose: 6 unit Documented by: Pneumococcal 13-Valent Conj Vacc (Prevnar 13 Syringe -) 0.5 ml IM .ONCE ONE Stop: 04/03/20 10:01 Zinc Sulfate (Orazinc -) 220 mg PO DAILY [facility] Last Admin: 04/05/20 10:03 Dose: 220 mg Documented by: - Objective Vital Signs: Vital Signs Temperature 97.8 F 04/05/20 06:00 Pulse Rate 81 04/05/20 06:00 Respiratory Rate 20 04/05/20 06:00 Blood Pressure 128/73 04/05/20 06:00 O2 Sat by Pulse Oximetry (%) 96 04/04/20 21:00 Constitutional: Yes: No Distress, Calm Cardiovascular: Yes: Regular Rate and Rhythm Respiratory: Yes: Regular Gastrointestinal: Yes: Normal Bowel Sounds, Soft, Abdomen, Obese Genitourinary: Yes: WNL Wound/Incision: Yes: Other (RLE tender but with less edema/drainage from extensive ulceration, Rt 4th interdigital ulcer, Rt 5th toe edema) Neurological: Yes: Alert, Oriented Labs: CBC, BMP 04/05/20 07:27 04/05/20 07:27 INR, PTT INR 1.39 (0.83-1.09) H 04/02/20 16:00 Microbiology 04/03/20 01:35 Leg - Right Lower Gram Stain - Final 04/03/20 01:35 Leg - Right Lower Wound Culture - Preliminary Proteus Penneri Proteus Vulgaris Group D Strep Or Entero Coccus 04/02/20 16:00 Blood - Peripheral Venous Blood Culture - Preliminary Group D Strep Or Entero Coccus Pending Organism Pending Organism#2 04/02/20 19:00 Urine - Urine Clean Catch Urine Culture - Final Normal Urogenital Gin 04/02/20 16:00 Blood - Peripheral Venous Blood Culture - Preliminary Pending Organism Pending Organism#2 - ....Imaging MRI: Report Reviewed Problem List - Problems (1) Homeless single person Code(s): Z59.0 - HOMELESSNESS (2) Hyperglycemia Code(s): R73.9 - HYPERGLYCEMIA, UNSPECIFIED (3) Lactic acid acidosis Code(s): E87.2 - ACIDOSIS (4) Sepsis Code(s): A41.9 - SEPSIS, UNSPECIFIED ORGANISM Qualifiers: Sepsis type: sepsis due to unspecified organism Sepsis acute organ dysfunction status: unspecified Qualified Code(s): A41.9 - Sepsis, unspecified organism (5) Trench foot Code(s): T69.029A - IMMERSION FOOT, UNSPECIFIED FOOT, INITIAL ENCOUNTER Qualifiers: Encounter type: initial encounter Laterality: unspecified laterality Qualified Code(s): T69.029A - Immersion foot, unspecified foot, initial encounter Assessment/Plan 50 y.o. undomiciled male with no known PMH presented with RLE swelling/worsening RLE wounds with drainage Sepsis Bacteremia RLE cellulitis with infected LE ulcers Rt 5th proximal phalanx OM Hyperglycemia/elevated HgAIC - DM Homeless -- continue Zosyn/Vancomycin, Vancomycin trough ordered (target range- 15-20), monitor renal function -- Blood culture/wound culture results noted - polymicrobial infection, follow up susceptibilities -- will need IV antibiotics, adjust based on final culture results -- repeat blood culture results pending -- elevated esr/crp -- Podiatry following, pt refuses 5th toe amputation -- Vascular evaluation -- wound care
--- NOTE | 2020-04-05 15:37 | PN ---
Physical Exam: SUBJECTIVE: Patient seen and examined. No acute overnight events. Continuing IV abx for OM. Refusing LE dressing change. OBJECTIVE: Vital Signs Period Temp Pulse Resp BP Sys/Perkins Pulse Ox Last 24 Hr 97.8 F-98.8 F 81-90 18-20 128-143/73-82 96 GENERAL: The patient is awake, alert, and fully oriented, in no acute distress. HEENT: NCAT. PERRLA. MMM. LUNGS: Breath sounds equal, clear to auscultation bilaterally, no wheezes, no crackles, HEART: Regular rate and rhythm, S1, S2 without murmur, rub or gallop. ABDOMEN: Soft, nontender, nondistended, normoactive bowel sounds, no guarding EXTREMITIES: Extensive venous stasis ulcers b/l LE with chronic skin changes. 2 maggots observed RLE. R 5th toe ulcer with serous drainage. SKIN: Warm, dry Laboratory Last Values WBC 7.6 K/mm3 (4.0-10.0) 04/05/20 07: RBC 3.13 M/mm3 (4.00-5.60) L 04/05/20 07:27 Hgb 9.3 GM/dL (11.7-16.9) L 04/05/20 07: Hct 26.8 % (35.4-49) L 04/05/20 07:27 MCV 85.8 fl (80-96) 04/05/20 07:27 MCH 29.7 pg (25.7-33.7) 04/05/20 07: MCHC 34.6 g/dl (32.0-35.9) 04/05/20 07: RDW 13.5 % (11.9-15.9) 04/05/20 07:27 Plt Count 224 K/MM3 (134-434) 04/05/20 07: MPV 9.5 fl (7.5-11.1) 04/05/20 07: Absolute Neuts (auto) 4.7 K/mm3 (1.5-8.0) 04/05/20 07:27 Neutrophils % 62.4 % (42.8-82.8) 04/05/20 07:27 Neutrophils % (Manual) 54.9 % (42.8-82.8) 04/05/20 07:27 Band Neutrophils % 1.0 % 04/05/20 07: Lymphocytes % 27.1 % (8-40) 04/05/20 07: Lymphocytes % (Manual) 35.3 % (8-40) D 04/05/20 07: Monocytes % 9.2 % (3.8-10.2) 04/05/20 07: Monocytes % (Manual) 9 % (3.8-10.2) 04/05/20 07: Eosinophils % 0.9 % (0-4.5) 04/05/20 07: Eosinophils % (Manual) 0.0 % (0-4.5) D 04/05/20 07: Basophils % 0.4 % (0-2.0) 04/05/20 07: Basophils % (Manual) 0.0 % (0-2.0) 04/05/20 07: Myelocytes % (Man) 0 % (0-2) D 04/05/20 07: Promyelocytes % (Man) 0 % (0-2) 04/05/20 07: Blast Cells % (Manual) 0 % (0-0) 04/05/20 07: Nucleated RBC % 1 % (0-0) H 04/05/20 07: Metamyelocytes 0 % (0-2) D 04/05/20 07: Hypochromia 0 04/05/20 07:27 Platelet Estimate Normal 04/05/20 07: Polychromasia 1+ 04/05/20 07:27 Poikilocytosis 0 04/05/20 07: Anisocytosis 1+ 04/05/20 07:27 Microcytosis 1+ 04/05/20 07:27 Macrocytosis 0 04/05/20 07:27 ESR 95 mm/hr (0-20) H 04/04/20 08:38 PT with INR 16.40 SEC (9.7-13.0) H 04/02/20 16:00 INR 1.39 (0.83-1.09) H 04/02/20 16:00 PTT (Actin FS) 35.0 SECONDS (25.2-36.5) 04/02/20 16:00 Sodium 136 mmol/L (136-145) 04/05/20 07:27 Potassium 3.7 mmol/L (3.5-5.1) 04/05/20 07:27 Chloride 102 mmol/L (98-107) 04/05/20 07:27 Carbon Dioxide 27 mmol/L (21-32) 04/05/20 07:27 Anion Gap 6 MMOL/L (8-16) L 04/05/20 07:27 BUN 6.8 mg/dL (7-18) L 04/05/20 07:27 Creatinine 0.9 mg/dL (0.55-1.3) 04/05/20 07:27 Est GFR (CKD-EPI)AfAm 115.02 04/05/20 07:27 Est GFR (CKD-EPI)NonAf 99.24 04/05/20 07:27 POC Glucometer 250 UNITS (80-120) 04/05/20 11:32 Random Glucose 214 mg/dL (74-106) H 04/05/20 07:27 Hemoglobin A1c % 10.2 % (4.2-6.3) H 04/03/20 06:15 Lactic Acid 2.1 mmol/L (0.4-2.0) H 04/02/20 20:10 Calcium 7.7 mg/dL (8.5-10.1) L 04/05/20 07:27 Phosphorus 3.1 mg/dL (2.5-4.9) 04/05/20 07: Magnesium 2.5 mg/dL (1.8-2.4) H 04/05/20 07:27 Iron 28 ug/dL (50-175) L 04/04/20 12:15 Ferritin 438.8 ng/ml (8-388) H 04/04/20 12:15 Total Bilirubin 0.4 mg/dL (0.2-1) 04/05/20 07:27 AST 24 U/L (15-37) 04/05/20 07:27 ALT 28 U/L (13-61) 04/05/20 07:27 Alkaline Phosphatase 108 U/L (45-117) 04/05/20 07:27 Creatine Kinase 115 U/L (26-308) 04/02/20 16:00 Troponin I < 0.02 ng/ml (0.00-0.05) 04/02/20 16:00 C-Reactive Protein 10.6 MG/DL (0.00-0.3) H 04/04/20 08:38 Total Protein 6.7 g/dl (6.4-8.2) 04/05/20 07:27 Albumin 1.8 g/dl (3.4-5.0) L 04/05/20 07:27 Vitamin B12 748 pg/ml (193-986) 04/04/20 12:15 Serum Folate 7 ng/mL (3.1-17.5) 04/04/20 12:15 TSH 0.87 uIU/ml (0.358-3.74) D 04/03/20 06:15 Urine Color Dk yellow 04/02/20 19:00 Urine Appearance Clear 04/02/20 19:00 Urine pH 6.0 (5.0-8.0) 04/02/20 19:00 Ur Specific [place] 1.039 (1.010-1.035) H 04/02/20 19:00 Urine Protein Trace (NEGATIVE) 04/02/20 19:00 Urine Glucose (UA) 3+ (NEGATIVE) H 04/02/20 19:00 Urine Ketones 1+ (NEGATIVE) H 04/02/20 19:00 Urine Blood Negative (NEGATIVE) 04/02/20 19:00 Urine Nitrite Negative (NEGATIVE) 04/02/20 19:00 Urine Bilirubin Negative (NEGATIVE) 04/02/20 19:00 Urine Urobilinogen 1.0 mg/dL (0.2-1.0) 04/02/20 19:00 Ur Leukocyte Esterase Negative (NEGATIVE) 04/02/20 19:00 Opiates Screen Positive ng/ml (CCLTJE=193) A* 04/03/20 01:35 Methadone Screen Negative ng/ml (WJTGWF=189) 04/03/20 01:35 Barbiturate Screen Negative ng/ml (FQCBMB=765) 04/03/20 01:35 Phencyclidine Screen Negative ng/ml (CUTOFF=25) 04/03/20 01:35 Ur Amphetamines Screen Negative ng/ml (VEQSGF=974) 04/03/20 01:35 MDMA (Ecstasy) Screen Negative ng/ml (EFBYUM=219) 04/03/20 01:35 Benzodiazepines Screen Negative ng/ml (SHZQAY=816) 04/03/20 01:35 Cocaine Screen Negative ng/ml (EOQUJR=608) 04/03/20 01:35 U Marijuana (THC) Screen Negative ng/ml (CUTOFF=50) 04/03/20 01:35 COVID-19 (DANAE) Not detected (Not Detected) 04/02/20 17:50 Blood Type A POSITIVE 04/02/20 16:00 Antibody Screen Negative 04/02/20 16:00 Active Medications Generic Name Dose Route Start Last Admin Trade Name Freq PRN Reason Stop Dose Admin Acetaminophen 650 mg 04/03/20 00:14 Tylenol - PO Q4H PRN PAIN LEVEL 4 - 6 Ascorbic Acid 500 mg 04/03/20 10:00 04/05/20 10:03 Vitamin C - PO 500 mg DAILY VIC Administration Cholecalciferol 1,000 unit 04/03/20 10:00 04/05/20 10:03 Vitamin D3 - PO 1,000 unit DAILY VIC Administration Heparin Sodium (Porcine) 5,000 unit 04/02/20 23:45 04/04/20 14:19 Heparin - SQ 5,000 unit TID VIC Administration Vancomycin HCl 1,250 mg/ 250 mls @ 166.667 mls/hr 04/04/20 04:00 04/05/20 03:39 Dextrose IVPB 166.667 mls/hr BID@0400,1600 VIC Administration Protocol Piperacillin Sod/Tazobactam 50 mls @ 100 mls/hr 04/03/20 18:00 04/05/20 10:03 Sod 3.375 gm/ Dextrose IVPB 100 mls/hr Q8H-IV VIC Administration Protocol Influenza Virus Vaccine Quadrival 60 mcg 04/03/20 10:00 Flulaval Quad [id number] IM 04/03/20 10:01 .ONCE ONE Insulin Aspart 1 vial 04/03/20 07:00 04/05/20 12:15 Novolog Vial Sliding Scale - SQ 6 unit ACHS VIC Administration Protocol Pneumococcal 13-Valent Conj Vacc 0.5 ml 04/03/20 10:00 Prevnar 13 Syringe - IM 04/03/20 10:01 .ONCE ONE Zinc Sulfate 220 mg 04/03/20 10:00 04/05/20 10:03 Orazinc - PO 220 mg DAILY VIC Administration ASSESSMENT/PLAN: 50 y.o. undomiciled M unknown medical history brought to ED after passers by noticed maggots on his feet admitted for sepsis 2/2 to RLE OM. #Sepsis 2/2 RLE OM 5th digit with Cellulitis -leukocytosis resolved; esr, crp elevated -lactic acid 5 on admission, now wnl (0.9) -RLE MRI: 5th digit OM + cellulitis -RLE wound cx: moderate proteus vulgaris, few proteus penneri & enterococcus- pending final cx results -blood cx's 04/02: gm+ cocci in clusters & gm pos bacilli likely enterococcus x 2 access sites -repeat blod cx's 04/03 NGTD -ID following: continue IV abx, zosyn & vanc. f/u vanc trough -seen by podiatry: patient refusing surgical intervention- will likely yadiel 6 weeks outpatient abx therapy, needs placement for this tx -f/u vascular surg recs for wound debridement/ management of venous ulcers #New onset DM2 -HbA1c 10.2% -BGMs, ISS ACHS -Will start Metformin on discharge and refer to PCP/Endocrinology. -Diabetes education #Hyponatremia -2/2 dehydration, resolved #Hypophosphatemia -resolved #Normocytic Anemia -Drop in H/H likely dilutional vs acute disease process -No signs of jose bleeding -B12/Ferritin/Folate wnl -FOBT: trace DVT ppx holding sq heparin in setting of acute hgb drop FEN -no standing fluids -monitor lytes replete prn -diabetic diet Dispo: ctm on med surg will need outpatient placement pending final culture results & targeted IV abx Visit type - Emergency Visit Emergency Visit: No - New Patient This patient is new to me today: Yes Date on this admission: 04/05/20 - Critical Care Critical Care patient: No ATTENDING PHYSICIAN STATEMENT I saw and evaluated the patient. I reviewed the resident's note and discussed the case with the resident. I agree with the resident's findings and plan as documented. SUBJECTIVE: OBJECTIVE: ASSESSMENT AND PLAN:
--- NOTE | 2020-04-05 16:56 | PN ---
Teaching Attending Note Name of Resident: Oumou Medley ATTENDING PHYSICIAN STATEMENT I saw and evaluated the patient. I reviewed the resident's note and discussed the case with the resident. I agree with the resident's findings and plan as documented. SUBJECTIVE: R leg/foot pain/tenderness improving as per patient. No fever/chills. OBJECTIVE: Afebrile, Hemodynamically Stable. Poor personal hygiene. AAO x 3. Last Vital Signs Temp Pulse Resp BP Pulse Ox 98.7 F 86 20 135/76 96 04/05/20 15:53 04/05/20 15:53 04/05/20 15:53 04/05/20 15:53 04/04/20 21:00 Heart - S1, S2, RRR Lungs - clear to auscultation Abdomen - Soft, non-tender. Bowel Sounds normal. Extremities - poor hygiene, extensive venous stasis ulcers RLE medial and dorsal aspect of jin and foot. R 5th toe ulcer with serous drainage. Neuro - AAO x 3. Tone/Power normal all extremities. Pulses palpable. Laboratory Results - last 24 hr 04/04/20 04/04/20 04/05/20 17:02 21:29 05:44 WBC RBC Hgb Hct MCV MCH MCHC RDW Plt Count MPV Absolute Neuts (auto) Neutrophils % Neutrophils % (Manual) Band Neutrophils % Lymphocytes % Lymphocytes % (Manual) Monocytes % Monocytes % (Manual) Eosinophils % Eosinophils % (Manual) Basophils % Basophils % (Manual) Myelocytes % (Man) Promyelocytes % (Man) Blast Cells % (Manual) Nucleated RBC % Metamyelocytes Hypochromia Platelet Estimate Polychromasia Poikilocytosis Anisocytosis Microcytosis Macrocytosis Sodium Potassium Chloride Carbon Dioxide Anion Gap BUN Creatinine Est GFR (CKD-EPI)AfAm Est GFR (CKD-EPI)NonAf POC Glucometer 204 149 255 Random Glucose Calcium Phosphorus Magnesium Total Bilirubin AST ALT Alkaline Phosphatase Total Protein Albumin 04/05/20 04/05/20 04/05/20 07:27 07:27 11:32 WBC 7.6 RBC 3.13 L Hgb 9.3 L Hct 26.8 L MCV 85.8 MCH 29.7 MCHC 34.6 RDW 13.5 Plt Count 224 MPV 9.5 Absolute Neuts (auto) 4.7 Neutrophils % 62.4 Neutrophils % (Manual) 54.9 Band Neutrophils % 1.0 Lymphocytes % 27.1 Lymphocytes % (Manual) 35.3 D Monocytes % 9.2 Monocytes % (Manual) 9 Eosinophils % 0.9 Eosinophils % (Manual) 0.0 D Basophils % 0.4 Basophils % (Manual) 0.0 Myelocytes % (Man) 0 D Promyelocytes % (Man) 0 Blast Cells % (Manual) 0 Nucleated RBC % 1 H Metamyelocytes 0 D Hypochromia 0 Platelet Estimate Normal Polychromasia 1+ Poikilocytosis 0 Anisocytosis 1+ Microcytosis 1+ Macrocytosis 0 Sodium 136 Potassium 3.7 Chloride 102 Carbon Dioxide 27 Anion Gap 6 L BUN 6.8 L Creatinine 0.9 Est GFR (CKD-EPI)AfAm 115.02 Est GFR (CKD-EPI)NonAf 99.24 POC Glucometer 250 Random Glucose 214 H Calcium 7.7 L Phosphorus 3.1 Magnesium 2.5 H Total Bilirubin 0.4 AST 24 ALT 28 Alkaline Phosphatase 108 Total Protein 6.7 Albumin 1.8 L Current Medications Generic Name Dose Route Start Last Admin Trade Name Noelq PRN Reason Stop Dose Admin Acetaminophen 650 mg 04/03/20 00:14 Tylenol - PO Q4H PRN PAIN LEVEL 4 - 6 Ascorbic Acid 500 mg 04/03/20 10:00 04/05/20 10:03 Vitamin C - PO 500 mg DAILY VIC Administration Cholecalciferol 1,000 unit 04/03/20 10:00 04/05/20 10:03 Vitamin D3 - PO 1,000 unit DAILY VIC Administration Heparin Sodium (Porcine) 5,000 unit 04/02/20 23:45 04/04/20 14:19 Heparin - SQ 5,000 unit TID VIC Administration Vancomycin HCl 1,250 mg/ 250 mls @ 166.667 mls/hr 04/04/20 04:00 04/05/20 03:39 Dextrose IVPB 166.667 mls/hr BID@0400,1600 VIC Administration Protocol Piperacillin Sod/Tazobactam 50 mls @ 100 mls/hr 04/03/20 18:00 04/05/20 10:03 Sod 3.375 gm/ Dextrose IVPB 100 mls/hr Q8H-IV VIC Administration Protocol Influenza Virus Vaccine Quadrival 60 mcg 04/03/20 10:00 Flulaval Quad [id number] IM 04/03/20 10:01 .ONCE ONE Insulin Aspart 1 vial 04/03/20 07:00 04/05/20 12:15 Novolog Vial Sliding Scale - SQ 6 unit ACHS VIC Administration Protocol Pneumococcal 13-Valent Conj Vacc 0.5 ml 04/03/20 10:00 Prevnar 13 Syringe - IM 04/03/20 10:01 .ONCE ONE Zinc Sulfate 220 mg 04/03/20 10:00 04/05/20 10:03 Orazinc - PO 220 mg DAILY VIC Administration Home Medications Medication Instructions Recorded NK [No Known Home Medication] 04/02/20 ASSESSMENT AND PLAN: 50 year old undomiciled male brought to ED after passers-by noticed maggots on his feet. Reports RLE pain/tenderness. CT RLE - suspicion of OM for 5th toe on right foot. 1. Sepsis secondary to RLE OM 5th toe with Cellulitis of Foot, infected ulcers, and Bacteremia Leukocytosis, tachycardia improved. MRI - OM R 5th MT Vascular Surgery consulted for wound debridement/further management of venous ulcers - awaiting evaluation Blood Cx positive for Gram positive Bacilli/Gram positve cocci/Group D strep or enterococcus Wound Cx - Proteus Awaiting final ID and Sensitivities. Repeat Blood Cultures negative Continue IV Zosyn/Vanco for now as per ID Podiatry consulted - patient declines toe amputation in favor of 6 weeks IV Abx therapy. Will need some form of placement as he is homeless and PICC for IV Abx. 2. New DM 2 - A1c 10.2 Homeless, does not follow with PCP Maintain on Novolog as per sliding scale for now. Will start Metformin on discharge and refer to PCP/Endocrinology. Diabetes education. 3. Hyponatremia sec to dehydration - resolving with adequate hydration 4. Hypophosphatemia - repleted. 5. Anemia, normocytic. Drop in H/H likely dilutional. ?due to underlying chronic infection. No evidence of blood loss. ?Sec to Acute Sepsis/Chronic Disease. B12/Ferritin/Folate wnl. Iron 28. FOBT requested. Iron Sat requested. Further work-up as out-patient. DVT Px - Heparin SQ
[2020-04-05] MEDS ORDERED: PT OWN MED DRAWER 7, Y5N ONE (17:20)
[2020-04-05] MEDS: HEPARIN NA (PORCINE) 5,000 UNITS/ML 1ML VIAL SQ SCH (21:57)
[2020-04-06] MEDS ORDERED: PIPERACILLIN/TAZOBACTAM 3.375 GM VIAL IVPB ONE ×3 (01:49→17:42)
[2020-04-06] MEDS ORDERED: PT OWN MED DRAWER 7, Y5N ONE (01:49)
[2020-04-06] MEDS ORDERED: DEXTROSE 5%-WATER - 50 ML IVPB ONE ×3 (01:49→17:42)
[2020-04-06] MEDS: PIPERACILLIN/TAZOB 3.375 GM 3.375 GM in DEXTROSE 5%-WATER - 50 ML IVPB SCH ×3 (02:13→17:47)
[2020-04-06] MEDS: VANCOMYCIN HCL 1,250 MG in DEXTROSE 5%-WATER - 250 ML IVPB SCH ×2 (02:59→16:30)
[2020-04-06] MEDS: INSULIN SLIDING SCALE (NOVOLOG) 1 VIAL SQ SCH ×4 (06:06→21:12)
[2020-04-06] MEDS: HEPARIN NA (PORCINE) 5,000 UNITS/ML 1ML VIAL SQ SCH ×3 (06:06→21:13)
[2020-04-06 08:07] LABS: HEMATOCRIT 28.6 % (35.4-49); HEMOGLOBIN 9.8 GM/dL (11.7-16.9); MCH 29.4 pg (25.7-33.7); MCHC 34.1 g/dl (32.0-35.9); MEAN CELL VOLUME 86.1 fl (80-96); MEAN PLT VOLUME 9.4 fl (7.5-11.1); PLATELET COUNT 248 K/MM3 (134-434); RBC 3.32 M/mm3 (4.00-5.60); RDW 13.8 % (11.9-15.9); WHITE BLOOD COUNT 7.2 K/mm3 (4.0-10.0)
[2020-04-06 08:41] LABS: POTASSIUM 3.9 mmol/L (3.5-5.1)
[2020-04-06 08:59] LABS: BILIRUBIN,TOTAL 0.8 mg/dL (0.2-1); BLOOD UREA NITROGEN 8.4 mg/dL (7-18); CALCIUM 8.1 mg/dL (8.5-10.1); CREATININE 1.1 mg/dL (0.55-1.3); MAGNESIUM 2.6 mg/dL (1.8-2.4); PHOSPHOROUS 3.8 mg/dL (2.5-4.9); TOT PROT 7.3 g/dl (6.4-8.2)
--- NOTE | 2020-04-06 09:01 | PN ---
Progress Note (short form) - Note Progress Note: VASCULAR SURGERY No acute events per RN notes. Resting comfortably without complaints. R foot MRI: osteomyelitis fifth digit Last Vital Signs Temp Pulse Resp BP Pulse Ox 98.1 F 83 20 129/73 96 04/06/20 06:00 04/06/20 06:00 04/06/20 06:00 04/06/20 06:00 04/05/20 21:00 PE RLE: (foot) warm. palpable DP & PT. Cap refill < 3 sec to toes. interdigital webspace ulcer between 4/5. Seropurulent drainage. Probes to bone; no soft tissue crepitus, no fluctuance, no streaking ascending cellulitis. There is gross digital edema to the 5th digit. Significant venous stasis changes with skin slough to the lower leg, mostly fibrotic. Chronic venous swelling. Problem List - Problems (1) Osteomyelitis of fifth toe of right foot Assessment/Plan: 50 year old diabetic male with right foot osteomyelitis of fifth digit - Podiatry (Drs. Pack & Vinny) had in depth discussion with patient on risks and benefits of having the amputation. Patient adamantly refusing any form of surgical intervention. -Recommend PICC for mcc IVABX to treat his osteo. -f/u with Podiatry as an outpatient [facility] -if patient reconsiders amputation please reconsult Podiatry -Elevate the lower extremity above the level of the heart at all times while at rest -Bilateral compression with madelin wraps once cellulitis has receded (wrap from metacarpal heads to below knee) -Domeboro soaks QD (astringent for pruritus) -Apply Lac hydrin daily (for dry scaly skin) -Wash LE with warm soapy water daily -Will sign off for now as no surgical intervention needed Cont medical management. Above discussed with my attending and agrees. On behalf of Dr. Bateman, thank you for the opportunity to participate in your patient's care Code(s): M86.9 - OSTEOMYELITIS, UNSPECIFIED (2) Homeless single person Code(s): Z59.0 - HOMELESSNESS (3) Hyperglycemia Code(s): R73.9 - HYPERGLYCEMIA, UNSPECIFIED
--- NOTE | 2020-04-06 11:13 | ECHO ---
Version: 1 Name: BEAU CASTILLO Exam: Adult Echocardiogram Study Date: 04/06/2020, 10:18 AM Age: 50 Years MMode/2D Measurements & Calculations IVSd: 1.10 cm LVIDs: 2.6 cm LVIDd: 3.9 cm LVPWd: 1.14 cm LVOT diam: 2.09 cm Ao root diam: 2.9 cm LA dimension: 2.42 cm Doppler Measurements & Calculations MV E max reginaldo: 60.3 cm/sec MV A max reginaldo: 99.8 cm/sec MV E/A: 0.60 Ao max P.3 mmHg Ao V2 max: 114.7 cm/sec Left Ventricle The left ventricular size, thickness and function are normal. Ejection Fraction = 65%. The transmitr al spectral Doppler flow pattern is suggestive of impaired LV relaxation. Right Ventricle The right ventricle is normal in size and function. Atria Normal left and right atrial size and function. Mitral Valve The mitral valve is grossly normal. There is trace mitral regurgitation. Tricuspid Valve The tricuspid valve is normal. There is Trace to mild tricuspid regurgitation. Aortic Valve The aortic valve is normal in structure and function. Pulmonic Valve The pulmonic valve is not well seen, but is grossly normal. Great Vessels The aortic root is normal size. Normal aortic arch, descending and ascending aorta. Pericardium/Pleura There is no pericardial effusion. Summary Statements The left ventricular size, thickness and function are normal Ejection Fraction = 65%. The transmitral spectral Doppler flow pattern is suggestive of impaired LV relaxation. The right ventricle is normal in size and function. Normal left and right atrial size and function. The mitral valve is grossly normal. There is trace mitral regurgitation. The tricuspid valve is normal. There is Trace to mild tricuspid regurgitation. The aortic valve is normal in structure and function. The pulmonic valve is not well seen, but is grossly normal. The aortic root is normal size. Normal aortic arch, descending and ascending aorta There is no pericardial effusion. Lj Clemens 04/06/2020, 11:12 AM Ordering Physician: Ismael Juarez Referring Physician: DELMER Performed By: Margarita Woods
[2020-04-06] MEDS: ASCORBIC ACID 500 MG TABLET (FP) PO SCH (11:16)
[2020-04-06] MEDS: CHOLECALCIFEROL (VIT D3) 1,000 UNIT (25 MCG) TABLET PO SCH (11:16)
--- NOTE | 2020-04-06 12:33 | PN ---
Progress Note, Physician History of Present Illness: no new issues says pain wounds noted - Current Medication List Current Medications: Active Medications Acetaminophen (Tylenol -) 650 mg PO Q4H PRN PRN Reason: PAIN LEVEL 4 - 6 Ascorbic Acid (Vitamin C -) 500 mg PO DAILY [facility] Last Admin: 04/06/20 11:16 Dose: 500 mg Documented by: Cholecalciferol (Vitamin D3 -) 1,000 unit PO DAILY [facility] Last Admin: 04/06/20 11:16 Dose: 1,000 unit Documented by: Heparin Sodium (Porcine) (Heparin -) 5,000 unit SQ TID [facility] Last Admin: 04/06/20 06:06 Dose: 5,000 unit Documented by: Vancomycin HCl 1,250 mg/ (Dextrose) 250 mls @ 166.667 mls/hr IVPB BID@0400,1600 [facility]; Protocol Last Admin: 04/06/20 02:59 Dose: 166.667 mls/hr Documented by: Piperacillin Sod/Tazobactam (Sod 3.375 gm/ Dextrose) 50 mls @ 100 mls/hr IVPB Q8H-IV [facility]; Protocol Last Admin: 04/06/20 11:15 Dose: 100 mls/hr Documented by: Influenza Virus Vaccine Quadrival (Flulaval Quad [id number]) 60 mcg IM .ONCE ONE Stop: 04/03/20 10:01 Insulin Aspart (Novolog Vial Sliding Scale -) 1 vial SQ ACHS [facility]; Protocol Last Admin: 04/06/20 11:55 Dose: 6 unit Documented by: Pneumococcal 13-Valent Conj Vacc (Prevnar 13 Syringe -) 0.5 ml IM .ONCE ONE Stop: 04/03/20 10:01 - Objective Vital Signs: Vital Signs Temperature 98.1 F 04/06/20 06:00 Pulse Rate 83 04/06/20 06:00 Respiratory Rate 20 04/06/20 06:00 Blood Pressure 129/73 04/06/20 06:00 O2 Sat by Pulse Oximetry (%) 96 04/05/20 21:00 Constitutional: Yes: Calm, Mild Distress Cardiovascular: Yes: Regular Rate and Rhythm Respiratory: Yes: Regular, CTA Bilaterally Musculoskeletal: Yes: Other Extremities: Yes: Other Wound/Incision: Yes: Other (es: Other (RLE tender but with less edema/drainage from extensive ulceration, Rt 4th interdigital ulcer, Rt 5th toe edema)) Psychiatric: Yes: Alert, Oriented Labs: CBC, BMP 04/06/20 07:30 04/06/20 07:30 INR, PTT INR 1.39 (0.83-1.09) H 04/02/20 16:00 Assessment/Plan Problem List - Problems (1) Homeless single person Code(s): Z59.0 - HOMELESSNESS (2) Hyperglycemia Code(s): R73.9 - HYPERGLYCEMIA, UNSPECIFIED (3) Lactic acid acidosis Code(s): E87.2 - ACIDOSIS (4) Sepsis Code(s): A41.9 - SEPSIS, UNSPECIFIED ORGANISM Qualifiers: Sepsis type: sepsis due to unspecified organism Sepsis acute organ dysfunction status: unspecified Qualified Code(s): A41.9 - Sepsis, unspecified organism (5) Trench foot Code(s): T69.029A - IMMERSION FOOT, UNSPECIFIED FOOT, INITIAL ENCOUNTER Qualifiers: Encounter type: initial encounter Laterality: unspecified laterality Qualified Code(s): T69.029A - Immersion foot, unspecified foot, initial encounter Assessment/Plan 50 y.o. undomiciled male with no known PMH presented with RLE swelling/worsening RLE wounds with drainage Sepsis Bacteremia RLE cellulitis with infected LE ulcers Rt 5th proximal phalanx OM Hyperglycemia/elevated HgAIC - DM Homeless -- continue Zosyn/Vancomycin, V monitor renal function -- Blood culture/wound culture results noted - polymicrobial infection, follow up susceptibilities -- repeat blood culture results pending -- elevated esr/crp -- Podiatry following, pt refuses 5th toe amputation -- Vascular evaluation -- wound care
--- NOTE | 2020-04-06 14:40 | PN ---
Physical Exam: SUBJECTIVE: Patient seen and examined. Overnight no acute events. Patient refusing surgical amputation/surgical debridement of necrotic tissue. OBJECTIVE: Vital Signs Period Temp Pulse Resp BP Sys/Perkins Pulse Ox Last 24 Hr 98 F-98.7 F 83-104 20-20 129-152/73-81 96 GENERAL: The patient is awake, alert, and fully oriented, in no acute distress. HEENT: NCAT. PERRLA. MMM. LUNGS: Breath sounds equal, ctabl, no wheezes, no crackles, HEART: rrr, S1, S2 without mrg ABDOMEN: Soft, ntnd, normoactive bowel sounds, no guarding EXTREMITIES: Extensive venous stasis ulcers b/l LE with chronic skin changes. R 5th toe ulcer with serous drainage and necrotic tissue. SKIN: Warm, dry Laboratory Results - last 24 hr 04/05/20 04/05/20 04/05/20 16:10 17:01 21:56 WBC RBC Hgb Hct MCV MCH MCHC RDW Plt Count MPV Sodium Potassium Chloride Carbon Dioxide Anion Gap BUN Creatinine Est GFR (CKD-EPI)AfAm Est GFR (CKD-EPI)NonAf POC Glucometer 210 221 Random Glucose Calcium Phosphorus Magnesium Iron TIBC Iron Saturation Unsaturated IBC Total Bilirubin AST ALT Alkaline Phosphatase Total Protein Albumin Vancomycin Pre-Dose 10.4 H 04/06/20 04/06/20 04/06/20 06:05 07:30 07:30 WBC 7.2 RBC 3.32 L Hgb 9.8 L Hct 28.6 L MCV 86.1 MCH 29.4 MCHC 34.1 RDW 13.8 Plt Count 248 MPV 9.4 Sodium 136 Potassium 3.9 Chloride 104 Carbon Dioxide 27 Anion Gap 5 L BUN 8.4 Creatinine 1.1 Est GFR (CKD-EPI)AfAm 90.24 Est GFR (CKD-EPI)NonAf 77.86 POC Glucometer 239 Random Glucose 205 H Calcium 8.1 L Phosphorus 3.8 Magnesium 2.6 H Iron 32 L TIBC 176 L Iron Saturation 18 Unsaturated IBC 144 L Total Bilirubin 0.8 AST 24 ALT 31 Alkaline Phosphatase 105 Total Protein 7.3 Albumin 2.0 L Vancomycin Pre-Dose 04/06/20 11:39 WBC RBC Hgb Hct MCV MCH MCHC RDW Plt Count MPV Sodium Potassium Chloride Carbon Dioxide Anion Gap BUN Creatinine Est GFR (CKD-EPI)AfAm Est GFR (CKD-EPI)NonAf POC Glucometer 261 Random Glucose Calcium Phosphorus Magnesium Iron TIBC Iron Saturation Unsaturated IBC Total Bilirubin AST ALT Alkaline Phosphatase Total Protein Albumin Vancomycin Pre-Dose Active Medications Generic Name Dose Route Start Last Admin Trade Name Freq PRN Reason Stop Dose Admin Acetaminophen 650 mg 04/03/20 00:14 04/06/20 12:51 Tylenol - PO 650 mg Q4H PRN Administration PAIN LEVEL 4 - 6 Ascorbic Acid 500 mg 04/03/20 10:00 04/06/20 11:16 Vitamin C - PO 500 mg DAILY [facility] Administration Cholecalciferol 1,000 unit 04/03/20 10:00 04/06/20 11:16 Vitamin D3 - PO 1,000 unit DAILY [facility] Administration Heparin Sodium (Porcine) 5,000 unit 04/02/20 23:45 04/06/20 06:06 Heparin - SQ 5,000 unit TID [facility] Administration Vancomycin HCl 1,250 mg/ 250 mls @ 166.667 mls/hr 04/04/20 04:00 04/06/20 02:59 Dextrose IVPB 166.667 mls/hr BID@0400,1600 [facility] Administration Protocol Piperacillin Sod/Tazobactam 50 mls @ 100 mls/hr 04/03/20 18:00 04/06/20 11:15 Sod 3.375 gm/ Dextrose IVPB 100 mls/hr Q8H-IV [facility] Administration Protocol Influenza Virus Vaccine Quadrival 60 mcg 04/03/20 10:00 Flulaval Quad [id number] IM 04/03/20 10:01 .ONCE ONE Insulin Aspart 1 vial 04/03/20 07:00 04/06/20 11:55 Novolog Vial Sliding Scale - SQ 6 unit ACHS [facility] Administration Protocol Pneumococcal 13-Valent Conj Vacc 0.5 ml 04/03/20 10:00 Prevnar 13 Syringe - IM 04/03/20 10:01 .ONCE ONE ASSESSMENT/PLAN: 50 y.o. undomiciled M unknown medical history brought to ED after passers by noticed maggots on his feet admitted for sepsis 2/2 to RLE OM. #Sepsis 2/2 RLE OM 5th digit with Cellulitis -leukocytosis resolved; esr, crp elevated -lactic acid 5 on admission, now wnl (0.9) -RLE MRI: 5th digit OM + cellulitis -RLE wound cx: moderate proteus vulgaris, few proteus penneri & enterococcus- sensitive to vanc/ zosyn -blood cx's 04/02: gm+ cocci in clusters & gm pos bacilli likely enterococcus x 2 access sites -repeat blod cx's 04/03 NGTD -ID following: continue IV abx, zosyn & vanc -seen by podiatry: patient refusing all surgical intervention- will likely yadiel 6 weeks outpatient abx therapy, needs placement for this tx -vascular surg consulted for wound debridement/ management of venous ulcers: Elevate the lower extremity above the level of the heart at all times while at rest. B/l compression with madelin wraps once cellulitis has receded (wrap from metacarpal heads to below knee). Domeboro soaks QD (astringent for pruritus). Apply Lac hydrin daily (for dry scaly skin). Wash LE with warm soapy water daily. Will sign off for now as no surgical intervention needed -echo 04/06: normal EF. trace MR/ TR #New onset DM2 -HbA1c 10.2% -BGMs, ISS ACHS -Will start Metformin on discharge and refer to PCP/Endocrinology. -Diabetes education #Hyponatremia -2/2 dehydration, resolved #Hypophosphatemia -resolved #Normocytic Anemia -Drop in H/H likely dilutional vs acute disease process -No signs of jose bleeding -B12/Ferritin/Folate wnl -FOBT: trace DVT ppx holding sq heparin in setting of acute hgb drop FEN -no standing fluids -monitor lytes replete prn -diabetic diet Dispo: ctm on med surg will need outpatient placement pending final culture results & targeted IV abx Visit type - Emergency Visit Emergency Visit: No - New Patient This patient is new to me today: No - Critical Care Critical Care patient: No ATTENDING PHYSICIAN STATEMENT I saw and evaluated the patient. I reviewed the resident's note and discussed the case with the resident. I agree with the resident's findings and plan as documented. SUBJECTIVE: OBJECTIVE: ASSESSMENT AND PLAN:
--- NOTE | 2020-04-06 18:14 | PN ---
Teaching Attending Note Name of Resident: Oumou Medley ATTENDING PHYSICIAN STATEMENT I saw and evaluated the patient. I reviewed the resident's note and discussed the case with the resident. I agree with the resident's findings and plan as documented. SUBJECTIVE: Seen and examined at bedside. Patient refusing any form of surgical interv ention including debridement and amputation. Patient noted to have maggots coming from wound on calf OBJECTIVE: Last Vital Signs Temp Pulse Resp BP Pulse Ox 96.2 F L 102 H 20 131/69 98 04/06/20 14:00 04/06/20 14:00 04/06/20 14:00 04/06/20 14:00 04/06/20 09:00 PE: per resident note Labs/Imaging: reviewed ASSESSMENT AND PLAN: 50 year old undomiciled male brought to ED after passers-by noticed maggots on his feet. Reports RLE pain/tenderness. CT RLE - suspicion of OM for 5th toe on right foot. #Sepsis secondary to RLE OM 5th toe with Cellulitis of Foot, infected ulcers with necrotic tissue (maggots) and Bacteremia Leukocytosis, tachycardia improved. MRI - OM R 5th MT -Vascular surgery and podiatry consulted: pt currently refusing surgical intervention Blood cx + for enterococcus faecalis and GPB Wound Cx - Proteus and enterococcus fecalis Awaiting final ID and Sensitivities. Repeat Blood Cultures negative Continue IV Zosyn/Vanco for now as per ID Will need some form of placement as he is homeless and PICC for IV Abx. # DM 2 - A1c 10.2 Homeless, does not follow with PCP Maintain on Novolog as per sliding scale for now. Will start Janumet on discharge and refer to PCP/Endocrinology. Diabetes education. DVT Px - Heparin SQ
[2020-04-07] MEDS ORDERED: DEXTROSE 5%-WATER - 50 ML IVPB ONE ×3 (01:10→17:11)
[2020-04-07] MEDS ORDERED: PIPERACILLIN/TAZOBACTAM 3.375 GM VIAL IVPB ONE ×3 (01:10→17:11)
[2020-04-07] MEDS: PIPERACILLIN/TAZOB 3.375 GM 3.375 GM in DEXTROSE 5%-WATER - 50 ML IVPB SCH ×3 (01:30→17:33)
[2020-04-07] MEDS: INSULIN SLIDING SCALE (NOVOLOG) 1 VIAL SQ SCH ×4 (06:00→22:18)
[2020-04-07] MEDS: HEPARIN NA (PORCINE) 5,000 UNITS/ML 1ML VIAL SQ SCH ×3 (06:00→22:17)
[2020-04-07 08:14] LABS: HEMATOCRIT 28.7 % (35.4-49); HEMOGLOBIN 9.7 GM/dL (11.7-16.9); MCH 29.6 pg (25.7-33.7); MCHC 33.9 g/dl (32.0-35.9); MEAN CELL VOLUME 87.4 fl (80-96); MEAN PLT VOLUME 9.4 fl (7.5-11.1); PLATELET COUNT 258 K/MM3 (134-434); RBC 3.29 M/mm3 (4.00-5.60); RDW 13.9 % (11.9-15.9); WHITE BLOOD COUNT 6.5 K/mm3 (4.0-10.0)
[2020-04-07 08:30] LABS: ALBUMIN 2.2 g/dl (3.4-5.0); BILIRUBIN,TOTAL 0.4 mg/dL (0.2-1); CALCIUM 8.4 mg/dL (8.5-10.1); CREATININE 1.3 mg/dL (0.55-1.3); POTASSIUM 4.4 mmol/L (3.5-5.1); TOT PROT 7.5 g/dl (6.4-8.2)
--- NOTE | 2020-04-07 09:05 | PN ---
Progress Note, Physician History of Present Illness: stable no new issues wounds looked at - Current Medication List Current Medications: Active Medications Acetaminophen (Tylenol -) 650 mg PO Q4H PRN PRN Reason: PAIN LEVEL 4 - 6 Last Admin: 04/06/20 12:51 Dose: 650 mg Documented by: Ascorbic Acid (Vitamin C -) 500 mg PO DAILY [facility] Last Admin: 04/06/20 11:16 Dose: 500 mg Documented by: Cholecalciferol (Vitamin D3 -) 1,000 unit PO DAILY [facility] Last Admin: 04/06/20 11:16 Dose: 1,000 unit Documented by: Heparin Sodium (Porcine) (Heparin -) 5,000 unit SQ TID [facility] Last Admin: 04/07/20 06:00 Dose: 5,000 unit Documented by: Piperacillin Sod/Tazobactam (Sod 3.375 gm/ Dextrose) 50 mls @ 100 mls/hr IVPB Q8H-IV [facility]; Protocol Last Admin: 04/07/20 01:30 Dose: 100 mls/hr Documented by: Influenza Virus Vaccine Quadrival (Flulaval Quad ) 60 mcg IM .ONCE ONE Stop: 04/03/20 10:01 Insulin Aspart (Novolog Vial Sliding Scale -) 1 vial SQ ACHS [facility]; Protocol Last Admin: 04/07/20 06:00 Dose: 4 unit Documented by: Pneumococcal 13-Valent Conj Vacc (Prevnar 13 Syringe -) 0.5 ml IM .ONCE ONE Stop: 04/03/20 10:01 - Objective Vital Signs: Vital Signs Temperature 97.8 F 04/07/20 06:41 Pulse Rate 99 H 04/07/20 06:41 Respiratory Rate 20 04/07/20 06:41 Blood Pressure 140/76 04/07/20 06:41 O2 Sat by Pulse Oximetry (%) 98 04/06/20 21:00 Constitutional: Yes: Calm, Mild Distress Cardiovascular: Yes: S1, S2 Respiratory: Yes: Regular, CTA Bilaterally Gastrointestinal: Yes: Normal Bowel Sounds, Soft Musculoskeletal: Yes: WNL Extremities: Yes: Other Neurological: Yes: Alert, Oriented Psychiatric: Yes: Alert, Oriented Labs: CBC, BMP 04/07/20 06:35 04/07/20 06:35 INR, PTT INR 1.39 (0.83-1.09) H 04/02/20 16:00 Assessment/Plan Problem List - Problems (1) Homeless single person Code(s): Z59.0 - HOMELESSNESS (2) Hyperglycemia Code(s): R73.9 - HYPERGLYCEMIA, UNSPECIFIED (3) Lactic acid acidosis Code(s): E87.2 - ACIDOSIS (4) Sepsis Code(s): A41.9 - SEPSIS, UNSPECIFIED ORGANISM Qualifiers: Sepsis type: sepsis due to unspecified organism Sepsis acute organ dysfunction status: unspecified Qualified Code(s): A41.9 - Sepsis, unspecified organism (5) Trench foot Code(s): T69.029A - IMMERSION FOOT, UNSPECIFIED FOOT, INITIAL ENCOUNTER Qualifiers: Encounter type: initial encounter Laterality: unspecified laterality Qualified Code(s): T69.029A - Immersion foot, unspecified foot, initial encounter Assessment/Plan 50 y.o. undomiciled male with no known PMH presented with RLE swelling/worsening RLE wounds with drainage Sepsis Bacteremia RLE cellulitis with infected LE ulcers Rt 5th proximal phalanx OM Hyperglycemia/elevated HgAIC - DM Homeless -- continue Zosyn/Vancomycin, V monitor renal function -- Blood culture/wound culture results noted - polymicrobial infection, follow up susceptibilities -- repeat blood culture results pending -- elevated esr/crp -- Podiatry following, pt refuses 5th toe amputation -- Vascular evaluation -- wound care patient will also need debridement of the wound follow vanco levels
[2020-04-07] MEDS: ASCORBIC ACID 500 MG TABLET (FP) PO SCH (10:19)
[2020-04-07] MEDS: CHOLECALCIFEROL (VIT D3) 1,000 UNIT (25 MCG) TABLET PO SCH (10:20)
[2020-04-07] MEDS: VANCOMYCIN 1,250 MG in DEXTROSE 5%-WATER - 250 ML IVPB SCH (11:44)
--- NOTE | 2020-04-07 13:47 | PN ---
Teaching Attending Note Name of Resident: Oumou Medley ATTENDING PHYSICIAN STATEMENT I saw and evaluated the patient. I reviewed the resident's note and discussed the case with the resident. I agree with the resident's findings and plan as documented. SUBJECTIVE: Seen and examined at bedside. Patient afebrile, but tachycardic to 104. Will not let us touch his legs. I explained multiple times in very simple terms over 2 days that the patient's legs will not heal if they are not cleaned and debrided. I also explained that the presence of maggots in his legs means that there is tissue that is which will not heal with or without medication. I attempted to use the talk back method to confirm understanding but the patient refused to repeat these words, despite otherwise being able to engage in conversation. He will not explain the reasoning as to why he is refusing treatment. It seems the patient is in extreme denial about the severity of his illness. OBJECTIVE PE: per resident note Labs/Imaging: reviewed ASSESSMENT AND PLAN: 50 year old undomiciled male brought to ED after passers-by noticed maggots on his feet. Reports RLE pain/tenderness. CT RLE - suspicion of OM for 5th toe on right foot. #Sepsis secondary to RLE OM 5th toe with Cellulitis of Foot, infected ulcers with necrotic tissue (maggots) and Bacteremia Leukocytosis, tachycardia improved. MRI - OM R 5th MT -Vascular surgery and podiatry consulted: pt currently refusing surgical intervention Blood cx + for enterococcus faecalis and GPB Wound Cx - Proteus and enterococcus fecalis Awaiting final ID and Sensitivities. Repeat Blood Cultures negative Continue IV Zosyn/Vanco for now as per ID Will need some form of placement as he is homeless and PICC for IV Abx. # DM 2 - A1c 10.2 Homeless, does not follow with PCP Started long-acting insulin 12 units nightly and short acting insulin 4 units with meals Continue sliding scale Will start Janumet on discharge and refer to PCP/Endocrinology. Diabetes education. DVT Px - Heparin SQ
--- NOTE | 2020-04-07 14:16 | PN ---
Physical Exam: SUBJECTIVE: Patient seen and examined. Refusing surgical intervention amputation/ debridement. Refusing wound dressing. OBJECTIVE: Vital Signs Period Temp Pulse Resp BP Sys/Perkins Pulse Ox Last 24 Hr 97.6 F-99.1 F 95-109 18-20 138-143/76-88 98 GENERAL: The patient is awake, alert, and fully oriented, in no acute distress. HEENT: NCAT. PERRLA. MMM. LUNGS: Breath sounds equal, ctabl, no wheezes, no crackles, HEART: rrr, S1, S2 without mrg ABDOMEN: Soft, ntnd, normoactive bowel sounds, no guarding EXTREMITIES: Extensive venous stasis ulcers b/l LE with chronic skin changes. R 5th toe ulcer with serous drainage and necrotic tissue. SKIN: Warm, dry Laboratory Results - last 24 hr 04/06/20 04/06/20 04/06/20 12:57 16:17 21:11 WBC RBC Hgb Hct MCV MCH MCHC RDW Plt Count MPV Sodium Potassium Chloride Carbon Dioxide Anion Gap BUN Creatinine Est GFR (CKD-EPI)AfAm Est GFR (CKD-EPI)NonAf POC Glucometer 213 244 Random Glucose Calcium Total Bilirubin AST ALT Alkaline Phosphatase Total Protein Albumin Stool Occult Blood Negative 04/07/20 04/07/20 04/07/20 05:45 06:35 06:35 WBC 6.5 RBC 3.29 L Hgb 9.7 L Hct 28.7 L MCV 87.4 MCH 29.6 MCHC 33.9 RDW 13.9 Plt Count 258 MPV 9.4 Sodium 136 Potassium 4.4 Chloride 102 Carbon Dioxide 29 Anion Gap 5 L BUN 12.0 Creatinine 1.3 Est GFR (CKD-EPI)AfAm 73.74 Est GFR (CKD-EPI)NonAf 63.62 POC Glucometer 247 Random Glucose 256 H Calcium 8.4 L Total Bilirubin 0.4 AST 19 ALT 30 Alkaline Phosphatase 101 Total Protein 7.5 Albumin 2.2 L Stool Occult Blood Active Medications Generic Name Dose Route Start Last Admin Trade Name Freq PRN Reason Stop Dose Admin Acetaminophen 650 mg 04/03/20 00:14 04/06/20 12:51 Tylenol - PO 650 mg Q4H PRN Administration PAIN LEVEL 4 - 6 Ascorbic Acid 500 mg 04/03/20 10:00 04/07/20 10:19 Vitamin C - PO 500 mg DAILY VIC Administration Cholecalciferol 1,000 unit 04/03/20 10:00 04/07/20 10:20 Vitamin D3 - PO 1,000 unit DAILY VIC Administration Heparin Sodium (Porcine) 5,000 unit 04/02/20 23:45 04/07/20 06:00 Heparin - SQ 5,000 unit TID [facility]IC Administration Piperacillin Sod/Tazobactam 50 mls @ 100 mls/hr 04/06/20 18:00 04/07/20 10:19 Sod 3.375 gm/ Dextrose IVPB 100 mls/hr Q8H-IV [facility] Administration Protocol Vancomycin HCl 1,250 mg/ 250 mls @ 166.667 mls/hr 04/07/20 11:00 04/07/20 11:44 Dextrose IVPB 166.667 mls/hr Q12H [facility] Administration Protocol Influenza Virus Vaccine Quadrival 60 mcg 04/03/20 10:00 Flulaval Quad [id number] IM 04/03/20 10:01 .ONCE ONE Insulin Aspart 1 vial 04/03/20 07:00 04/07/20 10:58 Novolog Vial Sliding Scale - SQ 6 unit ACHS [facility] Administration Protocol Insulin Aspart 4 units 04/07/20 16:30 Novolog SQ TIDAC [facility] Insulin Detemir 12 units 04/07/20 22:00 Levemir Vial SQ HS [facility] Pneumococcal 13-Valent Conj Vacc 0.5 ml 04/03/20 10:00 Prevnar 13 Syringe - IM 04/03/20 10:01 .ONCE ONE ASSESSMENT/PLAN: 50 y.o. undomiciled M unknown medical history brought to ED after passers by noticed maggots on his feet admitted for sepsis 2/2 to RLE OM. #Sepsis 2/2 RLE OM 5th digit with Cellulitis -leukocytosis resolved; esr, crp elevated -RLE MRI: 5th digit OM + cellulitis -RLE wound cx: moderate proteus vulgaris, few proteus penneri & enterococcus- sensitive to vanc/ zosyn -blood cx's 04/02: gm+ cocci in clusters & gm pos bacilli likely enterococcus x 2 access sites -repeat blood cx's 04/03 NGTD -ID following: continue IV abx, zosyn & vanc, renally dosed -seen by podiatry: patient refusing all surgical intervention- will likely need 6 weeks outpatient abx therapy, needs placement for this tx -vascular surg consulted for wound debridement/ management of venous ulcers: Elevate the lower extremity above the level of the heart at all times while at rest. B/l compression with madelin wraps once cellulitis has receded (wrap from metacarpal heads to below knee). Domeboro soaks QD (astringent for pruritus). Apply Lac hydrin daily (for dry scaly skin). Wash LE with warm soapy water daily. Will sign off for now as no surgical intervention needed -echo 04/06: normal EF. trace MR/ TR #New onset DM2 -HbA1c 10.2% -started on levemir 12U HS -BGMs, ISS ACHS -Will start Janumet on discharge and refer to PCP/Endocrinology. -Diabetes education #Hyponatremia -2/2 dehydration, resolved #Hypophosphatemia -resolved #Normocytic Anemia -Drop in H/H likely dilutional vs acute disease process -No signs of jose bleeding -B12/Ferritin/Folate wnl -FOBT: trace DVT ppx holding sq heparin in setting of acute hgb drop FEN -no standing fluids -monitor lytes replete prn -diabetic diet Dispo: ctm on med surg will need outpatient placement w/ targeted IV abx Visit type - Emergency Visit Emergency Visit: No - New Patient This patient is new to me today: No - Critical Care Critical Care patient: No ATTENDING PHYSICIAN STATEMENT I saw and evaluated the patient. I reviewed the resident's note and discussed the case with the resident. I agree with the resident's findings and plan as documented. SUBJECTIVE: OBJECTIVE: ASSESSMENT AND PLAN:
[2020-04-07] MEDS: INSULIN (NOVOLOG) ASPART 100 UNITS/ML 10ML VIAL SQ SCH (16:53)
[2020-04-07] MEDS: INSULIN (LEVEMIR) 100 UNITS/ML UNITS SQ SCH (22:17)
[2020-04-08] MEDS: VANCOMYCIN 1,250 MG in DEXTROSE 5%-WATER - 250 ML IVPB SCH ×3 (00:22→22:19)
[2020-04-08] MEDS ORDERED: DEXTROSE 5%-WATER - 50 ML IVPB ONE ×3 (01:18→17:08)
[2020-04-08] MEDS ORDERED: PIPERACILLIN/TAZOBACTAM 3.375 GM VIAL IVPB ONE ×3 (01:18→17:08)
[2020-04-08] MEDS: PIPERACILLIN/TAZOB 3.375 GM 3.375 GM in DEXTROSE 5%-WATER - 50 ML IVPB SCH ×3 (01:54→17:32)
[2020-04-08] MEDS: INSULIN (NOVOLOG) ASPART 100 UNITS/ML 10ML VIAL SQ SCH ×3 (06:13→17:31)
[2020-04-08] MEDS: INSULIN SLIDING SCALE (NOVOLOG) 1 VIAL SQ SCH ×4 (06:14→22:26)
[2020-04-08] MEDS: HEPARIN NA (PORCINE) 5,000 UNITS/ML 1ML VIAL SQ SCH ×3 (06:14→22:08)
[2020-04-08 07:42] LABS: HEMATOCRIT 29.8 % (35.4-49); HEMOGLOBIN 10.1 GM/dL (11.7-16.9); MCH 29.8 pg (25.7-33.7); MCHC 33.9 g/dl (32.0-35.9); MEAN PLT VOLUME 9.3 fl (7.5-11.1); PLATELET COUNT 247 K/MM3 (134-434); RBC 3.39 M/mm3 (4.00-5.60); RDW 13.9 % (11.9-15.9); WHITE BLOOD COUNT 6.7 K/mm3 (4.0-10.0)
[2020-04-08 08:17] LABS: BLOOD UREA NITROGEN 15.2 mg/dL (7-18); CALCIUM 8.5 mg/dL (8.5-10.1); CREATININE 1.2 mg/dL (0.55-1.3); POTASSIUM 4.3 mmol/L (3.5-5.1)
[2020-04-08] MEDS: ASCORBIC ACID 500 MG TABLET (FP) PO SCH (09:35)
[2020-04-08] MEDS: CHOLECALCIFEROL (VIT D3) 1,000 UNIT (25 MCG) TABLET PO SCH (09:35)
--- NOTE | 2020-04-08 10:23 | PN ---
Progress Note, Physician History of Present Illness: no specific changes patient uncooperative - Current Medication List Current Medications: Active Medications Acetaminophen (Tylenol -) 650 mg PO Q4H PRN PRN Reason: PAIN LEVEL 4 - 6 Last Admin: 04/06/20 12:51 Dose: 650 mg Documented by: Ascorbic Acid (Vitamin C -) 500 mg PO DAILY [facility] Last Admin: 04/08/20 09:35 Dose: 500 mg Documented by: Cholecalciferol (Vitamin D3 -) 1,000 unit PO DAILY [facility] Last Admin: 04/08/20 09:35 Dose: 1,000 unit Documented by: Heparin Sodium (Porcine) (Heparin -) 5,000 unit SQ TID [facility] Last Admin: 04/08/20 06:14 Dose: 5,000 unit Documented by: Piperacillin Sod/Tazobactam (Sod 3.375 gm/ Dextrose) 50 mls @ 100 mls/hr IVPB Q8H-IV [facility]; Protocol Last Admin: 04/08/20 09:35 Dose: 100 mls/hr Documented by: Vancomycin HCl 1,250 mg/ (Dextrose) 250 mls @ 166.667 mls/hr IVPB Q12H [facility]; Protocol Last Admin: 04/08/20 00:22 Dose: Not Given Documented by: Influenza Virus Vaccine Quadrival (Flulaval Quad [id number]) 60 mcg IM .ONCE ONE Stop: 04/03/20 10:01 Insulin Aspart (Novolog Vial Sliding Scale -) 1 vial SQ [facility]; Protocol Last Admin: 04/08/20 06:14 Dose: 4 unit Documented by: Insulin Aspart (Novolog Vial) 4 units SQ TIDAC [facility] Last Admin: 04/08/20 06:13 Dose: 4 units Documented by: Insulin Detemir (Levemir Vial) 12 units SQ HS [facility] Last Admin: 04/07/20 22:17 Dose: 12 units Documented by: Pneumococcal 13-Valent Conj Vacc (Prevnar 13 Syringe -) 0.5 ml IM .ONCE ONE Stop: 04/03/20 10:01 - Objective Vital Signs: Vital Signs Temperature 98.5 F 04/08/20 09:34 Pulse Rate 91 H 04/08/20 09:34 Respiratory Rate 20 04/08/20 09:34 Blood Pressure 124/77 04/08/20 09:34 O2 Sat by Pulse Oximetry (%) 98 04/07/20 20:32 Constitutional: Yes: No Distress, Calm Gastrointestinal: Yes: Normal Bowel Sounds, Soft Musculoskeletal: Yes: Other Wound/Incision: Yes: Other Neurological: Yes: Alert, Oriented Psychiatric: Yes: Alert, Other Labs: CBC, BMP 04/08/20 06:15 04/08/20 06:15 INR, PTT INR 1.39 (0.83-1.09) H 04/02/20 16:00 Assessment/Plan Problem List - Problems (1) Homeless single person Code(s): Z59.0 - HOMELESSNESS (2) Hyperglycemia Code(s): R73.9 - HYPERGLYCEMIA, UNSPECIFIED (3) Lactic acid acidosis Code(s): E87.2 - ACIDOSIS (4) Sepsis Code(s): A41.9 - SEPSIS, UNSPECIFIED ORGANISM Qualifiers: Sepsis type: sepsis due to unspecified organism Sepsis acute organ dysfunction status: unspecified Qualified Code(s): A41.9 - Sepsis, unspecified organism (5) Trench foot Code(s): T69.029A - IMMERSION FOOT, UNSPECIFIED FOOT, INITIAL ENCOUNTER Qualifiers: Encounter type: initial encounter Laterality: unspecified laterality Qualified Code(s): T69.029A - Immersion foot, unspecified foot, initial enco unter Assessment/Plan 50 y.o. undomiciled male with no known PMH presented with RLE swelling/worsening RLE wounds with drainage Sepsis Bacteremia RLE cellulitis with infected LE ulcers Rt 5th proximal phalanx OM Hyperglycemia/elevated HgAIC - DM Homeless -- continue Zosyn/Vancomycin, monitor renal function -wound care patient has refused all treatment
[2020-04-08] MEDS ORDERED: PT OWN MED DRAWER 7, Y5N ONE ×2 (11:00→22:07)
--- NOTE | 2020-04-08 15:24 | PN ---
Teaching Attending Note Name of Resident: Oumou Medley ATTENDING PHYSICIAN STATEMENT I saw and evaluated the patient. I reviewed the resident's note and discussed the case with the resident. I agree with the resident's findings and plan as documented. SUBJECTIVE: Pt refuses to interact with examiner other than grunting. Will not make eye contact. Psych consult placed. OBJECTIVE Last Vital Signs Temp Pulse Resp BP Pulse Ox 97.5 F L 107 H 20 153/94 98 04/08/20 14:00 04/08/20 14:00 04/08/20 14:00 04/08/20 14:00 04/08/20 09:00 PE: per resident note Labs/Imaging: reviewed ASSESSMENT AND PLAN: 50 year old undomiciled male brought to ED after passers-by noticed maggots on his feet. Reports RLE pain/tenderness. CT RLE - suspicion of OM for 5th toe on right foot. #Sepsis secondary to RLE OM 5th toe with Cellulitis of Foot, infected ulcers with necrotic tissue (maggots) and Bacteremia Leukocytosis, tachycardia improved. MRI - OM R 5th MT -Vascular surgery and podiatry consulted: pt currently refusing surgical intervention Blood cx + for enterococcus faecalis and GPB Wound Cx - Proteus and enterococcus fecalis Awaiting final ID and Sensitivities. Repeat Blood Cultures negative Continue IV Zosyn/Vanco for now as per ID Will need some form of placement as he is homeless and PICC for IV Abx. # DM 2 - A1c 10.2 Homeless, does not follow with PCP Started long-acting insulin 12 units nightly and short acting insulin 4 units with meals Continue sliding scale Will start Janumet on discharge and refer to PCP/Endocrinology. Diabetes education. DVT Px - Heparin SQ
--- NOTE | 2020-04-08 16:03 | PN ---
Physical Exam: SUBJECTIVE: Patient seen and examined. Refusing RLE 5th digit amputation. OBJECTIVE: Vital Signs Period Temp Pulse Resp BP Sys/Perkins Pulse Ox Last 24 Hr 97.5 F-98.5 F 91-107 18-20 124-153/75-94 98-98 GENERAL: The patient is awake, alert, and fully oriented, in no acute distress. HEENT: NCAT. PERRLA. MMM. LUNGS: Breath sounds equal, ctabl, no wheezes, no crackles, HEART: rrr, S1, S2 without mrg ABDOMEN: Soft, ntnd, normoactive bowel sounds, no guarding EXTREMITIES: Extensive venous stasis ulcers b/l LE with chronic skin changes. R 5th toe ulcer with serous drainage and necrotic tissue. SKIN: Warm, dry Laboratory Results - last 24 hr 04/07/20 04/07/20 04/07/20 16:49 20:15 20:52 WBC RBC Hgb Hct MCV MCH MCHC RDW Plt Count MPV Sodium Potassium Chloride Carbon Dioxide Anion Gap BUN Creatinine Est GFR (CKD-EPI)AfAm Est GFR (CKD-EPI)NonAf POC Glucometer 340 248 Random Glucose Calcium Vancomycin Pre-Dose 15.3 H 04/08/20 04/08/20 04/08/20 05:37 06:15 06:15 WBC 6.7 RBC 3.39 L Hgb 10.1 L Hct 29.8 L MCV 88.0 MCH 29.8 MCHC 33.9 RDW 13.9 Plt Count 247 MPV 9.3 Sodium 135 L Potassium 4.3 Chloride 103 Carbon Dioxide 26 Anion Gap 7 L BUN 15.2 Creatinine 1.2 Est GFR (CKD-EPI)AfAm 81.23 Est GFR (CKD-EPI)NonAf 70.09 POC Glucometer 244 Random Glucose 240 H Calcium 8.5 Vancomycin Pre-Dose 04/08/20 11:07 WBC RBC Hgb Hct MCV MCH MCHC RDW Plt Count MPV Sodium Potassium Chloride Carbon Dioxide Anion Gap BUN Creatinine Est GFR (CKD-EPI)AfAm Est GFR (CKD-EPI)NonAf POC Glucometer 247 Random Glucose Calcium Vancomycin Pre-Dose Active Medications Generic Name Dose Route Start Last Admin Trade Name Freq PRN Reason Stop Dose Admin Acetaminophen 650 mg 04/03/20 00:14 04/06/20 12:51 Tylenol - PO 650 mg Q4H PRN Administration PAIN LEVEL 4 - 6 Ascorbic Acid 500 mg 04/03/20 10:00 04/08/20 09:35 Vitamin C - PO 500 mg DAILY VIC Administration Cholecalciferol 1,000 unit 04/03/20 10:00 04/08/20 09:35 Vitamin D3 - PO 1,000 unit DAILY VIC Administration Heparin Sodium (Porcine) 5,000 unit 04/02/20 23:45 04/08/20 13:40 Heparin - SQ 5,000 unit TID VIC Administration Piperacillin Sod/Tazobactam 50 mls @ 100 mls/hr 04/06/20 18:00 04/08/20 09:35 Sod 3.375 gm/ Dextrose IVPB 100 mls/hr Q8H-IV [facility]IC Administration Protocol Vancomycin HCl 1,250 mg/ 250 mls @ 166.667 mls/hr 04/07/20 11:00 04/08/20 11:06 Dextrose IVPB 166.667 mls/hr Q12H [facility]IC Administration Protocol Influenza Virus Vaccine Quadrival 60 mcg 04/03/20 10:00 Flulaval Quad [id number] IM 04/03/20 10:01 .ONCE ONE Insulin Aspart 1 vial 04/03/20 07:00 04/08/20 11:08 Novolog Vial Sliding Scale - SQ 4 unit ACHS [facility] Administration Protocol Insulin Aspart 4 units 04/07/20 16:30 04/08/20 11:06 Novolog Vial SQ 4 units TIDAC [facility]IC Administration Insulin Detemir 12 units 04/07/20 22:00 04/07/20 22:17 Levemir Vial SQ 12 units HS VIC Administration Pneumococcal 13-Valent Conj Vacc 0.5 ml 04/03/20 10:00 Prevnar 13 Syringe - IM 04/03/20 10:01 .ONCE ONE ASSESSMENT/PLAN: 50 y.o. undomiciled M unknown medical history brought to ED after passers by noticed maggots on his feet admitted for sepsis 2/2 to RLE OM. #Sepsis 2/2 RLE OM 5th digit with Cellulitis -leukocytosis resolved; esr, crp elevated -RLE MRI: 5th digit OM + cellulitis -RLE wound cx: moderate proteus vulgaris, few proteus penneri & enterococcus- sensitive to vanc/ zosyn -blood cx's 04/02: gm+ cocci in clusters & gm pos bacilli likely enterococcus x 2 access sites -repeat blood cx's 04/03 NGTD -ID following: continue IV abx, zosyn & vanc, renally dosed -seen by podiatry: patient refusing all surgical intervention- will likely need 6 weeks outpatient abx therapy, needs placement for this tx -vascular surg consulted for wound debridement/ management of venous ulcers: Elevate the lower extremity above the level of the heart at all times while at rest. B/l compression with madelin wraps once cellulitis has receded (wrap from metacarpal heads to below knee). Domeboro soaks QD (astringent for pruritus). Apply Lac hydrin daily (for dry scaly skin). Wash LE with warm soapy water daily. Will sign off for now as no surgical intervention needed -echo 04/06: normal EF. trace MR/ TR #New onset DM2 -HbA1c 10.2% -started on levemir 12U HS -BGMs, ISS ACHS -Will start Janumet on discharge and refer to PCP/Endocrinology. -Diabetes education #Hyponatremia -2/2 dehydration, resolved #Hypophosphatemia -resolved #Normocytic Anemia -Drop in H/H likely dilutional vs acute disease process -No signs of jose bleeding -B12/Ferritin/Folate wnl -FOBT: trace DVT ppx holding sq heparin in setting of acute hgb drop FEN -no standing fluids -monitor lytes replete prn -diabetic diet Dispo: ctm on med surg will need outpatient placement w/ targeted IV abx Pending psych eval for capacity Visit type - Emergency Visit Emergency Visit: No - New Patient This patient is new to me today: No - Critical Care Critical Care patient: No ATTENDING PHYSICIAN STATEMENT I saw and evaluated the patient. I reviewed the resident's note and discussed the case with the resident. I agree with the resident's findings and plan as documented. SUBJECTIVE: OBJECTIVE: ASSESSMENT AND PLAN:
--- NOTE | 2020-04-08 17:21 | CON.PSY ---
Psychiatry Consult Chief Complaint: 50 Year old Homeless Male admitted with Severe Bi lateral Cellulitis seen for Psych evaluation. Case discussed with staff and Ferris Wheel Operator. they report very erratic and disporganizeed thinking.. Has no ID and gave several Dates to SW. Symptoms: reports: Memory Impairment, Disorganized/Disruptive Thoughts - Previous Psychiatric Treatment Outpatient: None Inpatient: None - Previous Substance Abuse Treatment Outpatient: None Inpatient: None - Current Medications Current Medications: Active Medications Acetaminophen (Tylenol -) 650 mg PO Q4H PRN PRN Reason: PAIN LEVEL 4 - 6 Last Admin: 04/06/20 12:51 Dose: 650 mg Documented by: Ascorbic Acid (Vitamin C -) 500 mg PO DAILY [facility] Last Admin: 04/08/20 09:35 Dose: 500 mg Documented by: Cholecalciferol (Vitamin D3 -) 1,000 unit PO DAILY [facility] Last Admin: 04/08/20 09:35 Dose: 1,000 unit Documented by: Heparin Sodium (Porcine) (Heparin -) 5,000 unit SQ TID [facility] Last Admin: 04/08/20 13:40 Dose: 5,000 unit Documented by: Piperacillin Sod/Tazobactam (Sod 3.375 gm/ Dextrose) 50 mls @ 100 mls/hr IVPB Q8H-IV [facility]; Protocol Last Admin: 04/08/20 09:35 Dose: 100 mls/hr Documented by: Vancomycin HCl 1,250 mg/ (Dextrose) 250 mls @ 166.667 mls/hr IVPB Q12H [facility]; Protocol Last Admin: 04/08/20 11:06 Dose: 166.667 mls/hr Documented by: Influenza Virus Vaccine Quadrival (Flulaval Quad ) 60 mcg IM .ONCE ONE Stop: 04/03/20 10:01 Insulin Aspart (Novolog Vial Sliding Scale -) 1 vial SQ ACHS [facility]; Protocol Last Admin: 04/08/20 11:08 Dose: 4 unit Documented by: Insulin Aspart (Novolog Vial) 4 units SQ TIDAC [facility] Last Admin: 04/08/20 11:06 Dose: 4 units Documented by: Insulin Detemir (Levemir Vial) 12 units SQ HS [facility] Last Admin: 04/07/20 22:17 Dose: 12 units Documented by: Pneumococcal 13-Valent Conj Vacc (Prevnar 13 Syringe -) 0.5 ml IM .ONCE ONE Stop: 04/03/20 10:01 - Allergies Allergies: Allergies Allergy/AdvReac Type Severity Reaction Status Date / Time No Known Allergies Allergy Verified 04/02/20 16:19 - Current Living Status Usual Living Arrangement: Alone - Current Mental Status Evaluation Appearance: Disheveled Attitude: Guarded - Affect Affect: Constrictive Appropriateness: Not Appropriate - Mood Mood: Euthymic - Speech/Language Expressive: Delayed - Psychomotor Activity Psychomotor Activity: Slowed - Thought Process Thought Process: Circumstantial - Thought Content Hallucinations: Absent Delusions: Absent - Self Perception Self Perception: No Impairment - Cognition Attention: Diminished Memory, Short Term: /3 Memory, Remote with Promptin/3 - Concentration Serial Sevens Intact: No Simple Calculations Intact: No - Abstraction Proverb Interpretation: Cade Judgement: Severely Impaired - Insight Insight: Impaired - Impulse Control Impulse Control: Good Control - Suicidal Ideation Suicidal Ideation: No - Homicidal Ideation Homicidal Ideation: No Assessment/Plan !) Patient lacks Functional capacity to make informed decisions about his care due to severe cognitive impairment and very poor Judgment.
[2020-04-08] MEDS: INSULIN (LEVEMIR) 100 UNITS/ML UNITS SQ SCH (22:28)
[2020-04-09] MEDS ORDERED: PIPERACILLIN/TAZOBACTAM 3.375 GM VIAL IVPB ONE ×3 (01:19→17:39)
[2020-04-09] MEDS ORDERED: DEXTROSE 5%-WATER - 50 ML IVPB ONE ×3 (01:19→17:40)
[2020-04-09] MEDS: PIPERACILLIN/TAZOB 3.375 GM 3.375 GM in DEXTROSE 5%-WATER - 50 ML IVPB SCH ×3 (02:01→17:45)
[2020-04-09] MEDS: HEPARIN NA (PORCINE) 5,000 UNITS/ML 1ML VIAL SQ SCH ×3 (06:04→21:33)
[2020-04-09] MEDS: INSULIN SLIDING SCALE (NOVOLOG) 1 VIAL SQ SCH ×4 (06:36→22:51)
[2020-04-09] MEDS: INSULIN (NOVOLOG) ASPART 100 UNITS/ML 10ML VIAL SQ SCH ×3 (06:53→16:50)
[2020-04-09 07:10] LABS: HEMATOCRIT 30.6 % (35.4-49); HEMOGLOBIN 10.4 GM/dL (11.7-16.9); MCH 29.4 pg (25.7-33.7); MCHC 33.9 g/dl (32.0-35.9); MEAN CELL VOLUME 86.7 fl (80-96); MEAN PLT VOLUME 9.1 fl (7.5-11.1); PLATELET COUNT 247 K/MM3 (134-434); RBC 3.53 M/mm3 (4.00-5.60); RDW 14.1 % (11.9-15.9); WHITE BLOOD COUNT 6.5 K/mm3 (4.0-10.0)
[2020-04-09 07:31] LABS: ALBUMIN 2.6 g/dl (3.4-5.0); BILIRUBIN,TOTAL 0.4 mg/dL (0.2-1); BLOOD UREA NITROGEN 19.4 mg/dL (7-18); CALCIUM 8.9 mg/dL (8.5-10.1); CREATININE 1.3 mg/dL (0.55-1.3); POTASSIUM 4.2 mmol/L (3.5-5.1); TOT PROT 7.8 g/dl (6.4-8.2)
[2020-04-09] MEDS: CHOLECALCIFEROL (VIT D3) 1,000 UNIT (25 MCG) TABLET PO SCH (09:53)
[2020-04-09] MEDS: ASCORBIC ACID 500 MG TABLET (FP) PO SCH (09:53)
[2020-04-09] MEDS: VANCOMYCIN 1,250 MG in DEXTROSE 5%-WATER - 250 ML IVPB SCH ×2 (11:28→22:51)
[2020-04-09] MEDS ORDERED: INSULIN (LEVEMIR) 100 UNITS/ML UNITS SQ SCH (13:55)
[2020-04-09] MEDS ORDERED: INSULIN (NOVOLOG) ASPART 100 UNITS/ML 10ML VIAL SQ SCH (13:56)
--- NOTE | 2020-04-09 13:59 | PN ---
Teaching Attending Note Name of Resident: Ismael Perdomo ATTENDING PHYSICIAN STATEMENT I saw and evaluated the patient. I reviewed the resident's note and discussed the case with the resident. I agree with the resident's findings and plan as documented. SUBJECTIVE: Psychiatry took away patient's capacity for medical decision making after e xamination last night. Ethics consult placed this morning to help determine course of care. OBJECTIVE Last Vital Signs Temp Pulse Resp BP Pulse Ox 98.4 F 89 20 127/76 96 04/09/20 06:00 04/09/20 06:00 04/09/20 06:00 04/09/20 06:00 04/08/20 21:00 PE: per resident note Labs/Imaging: reviewed ASSESSMENT AND PLAN: 50 year old undomiciled male brought to ED after passers-by noticed maggots on his feet. Reports RLE pain/tenderness. CT RLE - suspicion of OM for 5th toe on right foot. #Sepsis secondary to RLE OM 5th toe with Cellulitis of Foot, infected ulcers with necrotic tissue (maggots) and Bacteremia Leukocytosis, tachycardia improved. MRI - OM R 5th MT -Vascular surgery and podiatry consulted: pt currently refusing surgical intervention -Cultures polymicrobial Continue IV Zosyn/Vanco for now as per ID Will need some form of placement as he is homeless and PICC for IV Abx. # DM 2 - A1c 10.2 Homeless, does not follow with PCP -levemir 20U -Lispro 7U TIDAC Continue sliding scale Will start Janumet on discharge and refer to PCP/Endocrinology. Diabetes education. DVT Px - Heparin SQ Dispo:Patient does not have capacity to make medical decisions. Is refusing care of his wounds. Ethics consult placed
--- NOTE | 2020-04-09 14:19 | PN ---
Progress Note (short form) - Note Progress Note: Ethics Evaluation placed because Harpal is refusing amputation of his fifth toe on the right side which has osteomyelitis noted on the MRI scan. From reading the hospitalist notes it also appears that he is resistant to local care of his foot and toes also. On review of the admitting note and the director of social services reports it appears that he is homeless recently because of a lack of funds to pay rent at a friend's house. 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 There is one note that he was in senior care in 2019? He was picked up by the ambulance when some passerby noticed that condition of his legs and the pain that he was in. He was seen by Dr. Kebede and the psychiatrist did not feel that he has medical decision making capacity because of both cognitive impairment and disorganized thinking. No medication was recommended. Interestingly, it does appear however that he is agreeable to antibiotics, blood tests, x-rays and scans. Anything to do with the care of his feet and toes is not permitted. According to the staff he speaks Beninese well. There is a that mention that he was in senior care in 2019. Whether the patient has medical decision making ability or not, if he refuses an amputation and having his wounds clean and and dressed, he cannot be forced or restrained in order to perform an amputation or dress his wounds. If his mistrust or psychological issues continue regarding the recommended treatments we will have to plan for a safe post hospital facility that will accept him and continue his antibiotics. I think that further pursuit by our social service will have to continue. I don't know if we will be allowed to check senior care records if indeed we have his correct date of . The nurses are continuing to speak calmly with him and explain the reason for their need to clean and dress his wounds. I will follow.
--- NOTE | 2020-04-09 15:45 | PN ---
Physical Exam: SUBJECTIVE: Patient seen and examined. Refusing care by the nurses and refused to talk to me for interview. Refused physical exam as well. OBJECTIVE: Vital Signs Period Temp Pulse Resp BP Sys/Perkins Pulse Ox Last 24 Hr 97.8 F-98.4 F 89-93 20-20 127-149/76-85 96 Patient refused physical exam Laboratory Results - last 24 hr 04/08/20 04/08/20 04/09/20 17:30 22:25 05:40 WBC 6.5 RBC 3.53 L Hgb 10.4 L Hct 30.6 L MCV 86.7 MCH 29.4 MCHC 33.9 RDW 14.1 Plt Count 247 MPV 9.1 Sodium Potassium Chloride Carbon Dioxide Anion Gap BUN Creatinine Est GFR (CKD-EPI)AfAm Est GFR (CKD-EPI)NonAf POC Glucometer 220 277 Random Glucose Calcium Total Bilirubin AST ALT Alkaline Phosphatase Total Protein Albumin 04/09/20 04/09/20 04/09/20 05:40 06:07 11:20 WBC RBC Hgb Hct MCV MCH MCHC RDW Plt Count MPV Sodium 136 Potassium 4.2 Chloride 103 Carbon Dioxide 26 Anion Gap 7 L BUN 19.4 H Creatinine 1.3 Est GFR (CKD-EPI)AfAm 73.74 Est GFR (CKD-EPI)NonAf 63.62 POC Glucometer 219 215 Random Glucose 212 H Calcium 8.9 Total Bilirubin 0.4 AST 16 ALT 29 Alkaline Phosphatase 91 Total Protein 7.8 Albumin 2.6 L Active Medications Generic Name Dose Route Start Last Admin Trade Name Freq PRN Reason Stop Dose Admin Acetaminophen 650 mg 04/03/20 00:14 04/06/20 12:51 Tylenol - PO 650 mg Q4H PRN Administration PAIN LEVEL 4 - 6 Ascorbic Acid 500 mg 04/03/20 10:00 04/09/20 09:53 Vitamin C - PO 500 mg DAILY VIC Administration Cholecalciferol 1,000 unit 04/03/20 10:00 04/09/20 09:53 Vitamin D3 - PO 1,000 unit DAILY VIC Administration Heparin Sodium (Porcine) 5,000 unit 04/02/20 23:45 04/09/20 15:14 Heparin - SQ 5,000 unit TID VIC Administration Piperacillin Sod/Tazobactam 50 mls @ 100 mls/hr 04/06/20 18:00 04/09/20 09:53 Sod 3.375 gm/ Dextrose IVPB 100 mls/hr Q8H-IV VIC Administration Protocol Vancomycin HCl 1,250 mg/ 250 mls @ 166.667 mls/hr 04/07/20 11:00 04/09/20 11:28 Dextrose IVPB 166.667 mls/hr Q12H VIC Administration Protocol Influenza Virus Vaccine Quadrival 60 mcg 04/03/20 10:00 Flulaval Quad [id number] IM 04/03/20 10:01 .ONCE ONE Insulin Aspart 1 vial 04/03/20 07:00 04/09/20 11:31 Novolog Vial Sliding Scale - SQ 4 unit ACHS [facility] Administration Protocol Insulin Aspart 7 units 04/09/20 13:58 Novolog Vial SQ TIDAC VIC Insulin Detemir 20 units 04/09/20 13:58 Levemir Vial SQ HS [facility]IC Pneumococcal 13-Valent Conj Vacc 0.5 ml 04/03/20 10:00 Prevnar 13 Syringe - IM 04/03/20 10:01 .ONCE ONE ASSESSMENT/PLAN: 50 y/o/m unknown medical history brought to ED after passers by noticed maggots on his feet admitted for sepsis 2/2 to RLE OM. #Sepsis 2/2 RLE OM 5th digit with Cellulitis -leukocytosis resolved; esr, crp elevated -RLE MRI: 5th digit OM + cellulitis -RLE wound cx: moderate proteus vulgaris, few proteus penneri & enterococcus- sensitive to vanc/ zosyn -blood cx's 04/02: gm+ cocci in clusters & gm pos bacilli likely enterococcus x 2 access sites -repeat blood cx's 04/03 NGTD -ID following: continue IV abx, zosyn & vanc, renally dosed -seen by podiatry: patient refusing all surgical intervention- will likely need 6 weeks outpatient abx therapy, needs placement for this tx -vascular surg consulted for wound debridement/ management of venous ulcers: Elevate the lower extremity above the level of the heart at all times while at rest. B/l compression with madelin wraps once cellulitis has receded (wrap from metacarpal heads to below knee). Domeboro soaks QD (astringent for pruritus). Apply Lac hydrin daily (for dry scaly skin). Wash LE with warm soapy water daily. Will sign off for now as no surgical intervention needed -echo 04/06: normal EF. trace MR/ TR -seen by Psychiatry, Dr. Kebede, deemed that patient does not have medical decision making capacity -Ethics Consult for Dr. Waterman as patient is refusing care but has been deemed to not have medical decision making capacity -Patient cannot be forced or restrained in order to perform amputation or dress his wounds. Will need plan for a safe post hospital facility that will accept him and continue his abx #New onset DM2 -HbA1c 10.2% -started on levemir 12U HS -BGMs, ISS ACHS -Will start Janumet on discharge and refer to PCP/Endocrinology. -Diabetes education #Hyponatremia -2/2 dehydration, resolved #Hypophosphatemia -resolved #Normocytic Anemia -H&H now improving -Drop in H/H likely dilutional vs acute disease process -No signs of jose bleeding -B12/Ferritin/Folate wnl -FOBT: trace #DVT ppx -holding sq heparin in setting of acute hgb drop, can restart if H&H continues to improve #FEN -no standing fluids -monitor lytes replete prn -diabetic diet #Dispo -seen by psychiatry and Dr. Waterman for ethics consult. If patient continues to refuse amputation and dressing of wounds then we cannot force him to receive care despite not having medical decision making capacity, will need post hospital facility to accept him and continue abx course Visit type - Emergency Visit Emergency Visit: Yes ED Registration Date: 04/02/20 Care time: The patient presented to the Emergency Department on the above date and was hospitalized for further evaluation of their emergent condition. - New Patient This patient is new to me today: No - Critical Care Critical Care patient: No ATTENDING PHYSICIAN STATEMENT I saw and evaluated the patient. I reviewed the resident's note and discussed the case with the resident. I agree with the resident's findings and plan as documented. SUBJECTIVE: OBJECTIVE: ASSESSMENT AND PLAN:
[2020-04-09] MEDS ORDERED: PT OWN MED DRAWER 7, Y5N ONE (22:47)
[2020-04-09] MEDS: INSULIN (LEVEMIR) 100 UNITS/ML UNITS SQ SCH (22:52)
[2020-04-10] MEDS ORDERED: DEXTROSE 5%-WATER - 50 ML IVPB ONE ×3 (00:41→16:27)
[2020-04-10] MEDS ORDERED: PIPERACILLIN/TAZOBACTAM 3.375 GM VIAL IVPB ONE ×3 (00:41→16:27)
[2020-04-10] MEDS: PIPERACILLIN/TAZOB 3.375 GM 3.375 GM in DEXTROSE 5%-WATER - 50 ML IVPB SCH ×3 (01:31→17:44)
[2020-04-10] MEDS: HEPARIN NA (PORCINE) 5,000 UNITS/ML 1ML VIAL SQ SCH ×3 (06:11→21:11)
[2020-04-10] MEDS: INSULIN (NOVOLOG) ASPART 100 UNITS/ML 10ML VIAL SQ SCH ×3 (06:12→16:42)
[2020-04-10] MEDS: INSULIN SLIDING SCALE (NOVOLOG) 1 VIAL SQ SCH ×4 (06:12→21:10)
[2020-04-10 07:23] LABS: HEMATOCRIT 31.2 % (35.4-49); HEMOGLOBIN 10.5 GM/dL (11.7-16.9); MCHC 33.5 g/dl (32.0-35.9); MEAN CELL VOLUME 86.5 fl (80-96); PLATELET COUNT 249 K/MM3 (134-434); RDW 14.3 % (11.9-15.9); WHITE BLOOD COUNT 7.2 K/mm3 (4.0-10.0)
[2020-04-10 07:47] LABS: POTASSIUM 4.3 mmol/L (3.5-5.1)
[2020-04-10 07:55] LABS: BLOOD UREA NITROGEN 17.7 mg/dL (7-18); CALCIUM 9.1 mg/dL (8.5-10.1); CREATININE 1.4 mg/dL (0.55-1.3)
[2020-04-10] MEDS: ASCORBIC ACID 500 MG TABLET (FP) PO SCH (09:24)
[2020-04-10] MEDS: CHOLECALCIFEROL (VIT D3) 1,000 UNIT (25 MCG) TABLET PO SCH (09:25)
--- NOTE | 2020-04-10 10:43 | PN ---
Physical Exam: SUBJECTIVE: Patient seen and examined. Continues to refuse wound care to lower extremities. OBJECTIVE: Vital Signs Period Temp Pulse Resp BP Sys/Perkins Pulse Ox Last 24 Hr 97.2 F-98.5 F 89-99 20-22 132-162/75-95 GENERAL: The patient is awake, alert, and fully oriented, in no acute distress. HEENT: NCAT, PERRL, MMM LUNGS: Breath sounds equal, ctabl, no wheezes, no crackles, HEART: rrr, S1, S2 without mrg ABDOMEN: Soft, ntnd, normoactive bowel sounds, no guarding EXTREMITIES: Extensive venous stasis ulcers b/l LE with chronic skin changes. R 5th toe ulcer with serous drainage and necrotic tissue. SKIN: Warm, dry Laboratory Results - last 24 hr 04/09/20 04/09/20 04/09/20 11:20 16:37 20:52 WBC RBC Hgb Hct MCV MCH MCHC RDW Plt Count MPV Sodium Potassium Chloride Carbon Dioxide Anion Gap BUN Creatinine Est GFR (CKD-EPI)AfAm Est GFR (CKD-EPI)NonAf POC Glucometer 215 217 243 Random Glucose Calcium 04/10/20 04/10/20 04/10/20 05:35 05:35 06:11 WBC 7.2 RBC 3.60 L Hgb 10.5 L Hct 31.2 L MCV 86.5 MCH 29.0 MCHC 33.5 RDW 14.3 Plt Count 249 MPV 9.0 Sodium 137 Potassium 4.3 Chloride 102 Carbon Dioxide 27 Anion Gap 8 BUN 17.7 Creatinine 1.4 H Est GFR (CKD-EPI)AfAm 67.42 Est GFR (CKD-EPI)NonAf 58.17 POC Glucometer 189 Random Glucose 179 H Calcium 9.1 04/10/20 10:26 WBC RBC Hgb Hct MCV MCH MCHC RDW Plt Count MPV Sodium Potassium Chloride Carbon Dioxide Anion Gap BUN Creatinine Est GFR (CKD-EPI)AfAm Est GFR (CKD-EPI)NonAf POC Glucometer 204 Random Glucose Calcium Active Medications Generic Name Dose Route Start Last Admin Trade Name Freq PRN Reason Stop Dose Admin Acetaminophen 650 mg 04/03/20 00:14 04/06/20 12:51 Tylenol - PO 650 mg Q4H PRN Administration PAIN LEVEL 4 - 6 Ascorbic Acid 500 mg 04/03/20 10:00 04/10/20 09:24 Vitamin C - PO 500 mg DAILY VIC Administration Cholecalciferol 1,000 unit 04/03/20 10:00 04/10/20 09:25 Vitamin D3 - PO 1,000 unit DAILY VIC Administration Heparin Sodium (Porcine) 5,000 unit 04/02/20 23:45 04/10/20 06:11 Heparin - SQ 5,000 unit TID VIC Administration Piperacillin Sod/Tazobactam 50 mls @ 100 mls/hr 04/06/20 18:00 04/10/20 09:22 Sod 3.375 gm/ Dextrose IVPB 100 mls/hr Q8H-IV [facility]IC Administration Protocol Vancomycin HCl 1,250 mg/ 250 mls @ 166.667 mls/hr 04/07/20 11:00 04/09/20 22:51 Dextrose IVPB 166.667 mls/hr Q12H [facility] Administration Protocol Influenza Virus Vaccine Quadrival 60 mcg 04/03/20 10:00 Flulaval Quad [id number] IM 04/03/20 10:01 .ONCE ONE Insulin Aspart 1 vial 04/03/20 07:00 04/10/20 10:29 Novolog Vial Sliding Scale - SQ 4 unit ACHS [facility]IC Administration Protocol Insulin Aspart 7 units 04/09/20 13:58 04/10/20 10:29 Novolog Vial SQ 7 units TIDAC [facility]IC Administration Insulin Detemir 20 units 04/09/20 13:58 04/09/20 22:52 Levemir Vial SQ 20 unit HS VIC Administration Pneumococcal 13-Valent Conj Vacc 0.5 ml 04/03/20 10:00 Prevnar 13 Syringe - IM 04/03/20 10:01 .ONCE ONE ASSESSMENT/PLAN: 50 y/o/m unknown medical history brought to ED after passers by noticed maggots on his feet admitted for sepsis 2/2 to RLE OM. #Sepsis 2/2 RLE OM 5th digit with Cellulitis -leukocytosis resolved; esr, crp elevated -RLE MRI: 5th digit OM + cellulitis -RLE wound cx: moderate proteus vulgaris, few proteus penneri & enterococcus- sensitive to vanc/ zosyn -blood cx's 04/02: gm+ cocci in clusters & gm pos bacilli likely enterococcus x 2 access sites -repeat blood cx's 04/03 NGTD -ID following: continue IV abx, zosyn & vanc, renally dosed -seen by podiatry: patient refusing all surgical intervention- will likely need 6 weeks outpatient abx therapy, needs placement for this tx -vascular surg consulted for wound debridement/ management of venous ulcers: Elevate the lower extremity above the level of the heart at all times while at rest. B/l compression with madelin wraps once cellulitis has receded (wrap from metacarpal heads to below knee). Domeboro soaks QD (astringent for pruritus). Apply Lac hydrin daily (for dry scaly skin). Wash LE with warm soapy water daily. Will sign off for now as no surgical intervention needed -echo 04/06: normal EF. trace MR/ TR -seen by Psychiatry, Dr. Kebede, deemed that patient does not have medical decision making capacity -Ethics Consult for Dr. Waterman as patient is refusing care but has been deemed to not have medical decision making capacity -Patient cannot be forced or restrained in order to perform amputation or dress his wounds. Will need plan for a safe post hospital facility that will accept him and continue his abx -Patient continues to refuse wound care and podiatry care, amenable to IV abx #New onset DM2 -HbA1c 10.2% -started on levemir 12U HS -BGMs, ISS ACHS -Will start Janumet on discharge and refer to PCP/Endocrinology. -Diabetes education #Elevated Cr - Cr slowly rising, likely 2/2 to abx (Vanco, Zosyn) - monitor BUN/Cr #Hyponatremia -2/2 dehydration, resolved #Normocytic Anemia -H&H now improving -Drop in H/H likely dilutional vs acute disease process -No signs of jose bleeding -B12/Ferritin/Folate wnl -FOBT: trace #DVT ppx -holding sq heparin in setting of acute hgb drop, can restart if H&H continues to improve #FEN -no standing fluids -monitor and replete lytes as needed -diabetic diet #Dispo -seen by psychiatry and Dr. Waterman for ethics consult. If patient continues to refuse amputation and dressing of wounds then we cannot force him to receive care despite not having medical decision making capacity, will need post hospital facility to accept him and continue abx course. Patient continues to refused wound care/podiatry care. Visit type - Emergency Visit Emergency Visit: Yes ED Registration Date: 04/02/20 Care time: The patient presented to the Emergency Department on the above date and was hospitalized for further evaluation of their emergent condition. - New Patient This patient is new to me today: No - Critical Care Critical Care patient: No ATTENDING PHYSICIAN STATEMENT I saw and evaluated the patient. I reviewed the resident's note and discussed the case with the resident. I agree with the resident's findings and plan as documented. SUBJECTIVE: OBJECTIVE: ASSESSMENT AND PLAN:
[2020-04-10] MEDS ORDERED: PT OWN MED DRAWER 7, Y5N ONE (11:10)
--- NOTE | 2020-04-10 15:22 | PN ---
Teaching Attending Note Name of Resident: Ismael Juarez ATTENDING PHYSICIAN STATEMENT I saw and evaluated the patient. I reviewed the resident's note and discussed the case with the resident. I agree with the resident's findings and plan as documented. SUBJECTIVE: Seen and examined at bedside. Pt will neither respond to or make eye contact with examiner. OBJECTIVE Last Vital Signs Temp Pulse Resp BP Pulse Ox 98.4 F 89 20 133/78 96 04/10/20 09:39 04/10/20 09:39 04/10/20 09:39 04/10/20 09:39 04/08/20 21:00 PE: per resident note Labs/Imaging: reviewed ASSESSMENT AND PLAN: 50 year old undomiciled male brought to ED after passers-by noticed maggots on his feet. Reports RLE pain/tenderness. CT RLE - suspicion of OM for 5th toe on right foot. #Sepsis secondary to RLE OM 5th toe with Cellulitis of Foot, infected ulcers with necrotic tissue (maggots) and Bacteremia Leukocytosis, tachycardia improved. MRI - OM R 5th MT -Vascular surgery and podiatry consulted: pt currently refusing surgical intervention -Cultures polymicrobial Continue IV Zosyn/Vanco for now as per ID Will need some form of placement as he is homeless and possibly undocumented. However, since he came in opiate positive it may not be able to dc pt on PICC line # DM 2 - A1c 10.2 Homeless, does not follow with PCP -levemir 20U -Lispro 7U TIDAC Continue sliding scale Will start Janumet on discharge and refer to PCP/Endocrinology. Diabetes education. DVT Px - Heparin SQ Dispo:Patient does not have capacity to make medical decisions. Is refusing care of his wounds. Per ethics we cannot force him to either debride his wounds or amputate digit. Pt has no insurance and is likely undocumented. He was opiate positive on admission and will therefore be unlikely able to DC with PICC. Will likely need to remain inpt for 6 weeks.
[2020-04-10] MEDS: INSULIN (LEVEMIR) 100 UNITS/ML UNITS SQ SCH (21:10)
[2020-04-11] MEDS ORDERED: DEXTROSE 5%-WATER - 50 ML IVPB ONE ×3 (00:42→16:41)
[2020-04-11] MEDS ORDERED: PIPERACILLIN/TAZOBACTAM 3.375 GM VIAL IVPB ONE ×3 (00:42→16:41)
[2020-04-11] MEDS: PIPERACILLIN/TAZOB 3.375 GM 3.375 GM in DEXTROSE 5%-WATER - 50 ML IVPB SCH ×3 (01:15→17:05)
[2020-04-11] MEDS: HEPARIN NA (PORCINE) 5,000 UNITS/ML 1ML VIAL SQ SCH ×3 (06:06→21:33)
[2020-04-11] MEDS: INSULIN (NOVOLOG) ASPART 100 UNITS/ML 10ML VIAL SQ SCH ×3 (06:35→17:05)
[2020-04-11] MEDS: INSULIN SLIDING SCALE (NOVOLOG) 1 VIAL SQ SCH ×4 (06:35→21:39)
[2020-04-11 07:10] LABS: BLOOD UREA NITROGEN 19.4 mg/dL (7-18); CALCIUM 8.9 mg/dL (8.5-10.1); CREATININE 1.4 mg/dL (0.55-1.3); POTASSIUM 4.1 mmol/L (3.5-5.1)
[2020-04-11] MEDS ORDERED: PT OWN MED DRAWER 7, Y5N ONE (09:01)
[2020-04-11] MEDS: ASCORBIC ACID 500 MG TABLET (FP) PO SCH (09:19)
[2020-04-11] MEDS: CHOLECALCIFEROL (VIT D3) 1,000 UNIT (25 MCG) TABLET PO SCH (09:19)
--- NOTE | 2020-04-11 11:58 | PN ---
Physical Exam: SUBJECTIVE: Patient seen and examined. Continues to deny application of dressings to lower extremity and denies amputation. Does not believe he has an infection in his bone. Does not give proper explanation as to why he is denying care. OBJECTIVE: Vital Signs Period Temp Pulse Resp BP Sys/Perkins Pulse Ox Last 24 Hr 97.8 F-98.8 F 93-100 20-20 126-155/72-91 98 GENERAL: The patient is awake, alert, and fully oriented, in no acute distress. HEENT: NCAT, PERRL, MMM LUNGS: Breath sounds equal, ctabl, no wheezes, no crackles, HEART: rrr, S1, S2 without mrg ABDOMEN: Soft, ntnd, normoactive bowel sounds, no guarding EXTREMITIES: Extensive venous stasis ulcers b/l LE with chronic skin changes. R 5th toe ulcer with serous drainage and necrotic tissue. Dried blood on right lower extremity. SKIN: Warm, dry Laboratory Results - last 24 hr 04/10/20 04/10/20 04/11/20 16:40 20:48 05:25 Sodium 137 Potassium 4.1 Chloride 104 Carbon Dioxide 25 Anion Gap 8 BUN 19.4 H Creatinine 1.4 H Est GFR (CKD-EPI)AfAm 67.42 Est GFR (CKD-EPI)NonAf 58.17 POC Glucometer 205 241 Random Glucose 158 H Calcium 8.9 04/11/20 04/11/20 06:30 11:49 Sodium Potassium Chloride Carbon Dioxide Anion Gap BUN Creatinine Est GFR (CKD-EPI)AfAm Est GFR (CKD-EPI)NonAf POC Glucometer 161 167 Random Glucose Calcium Active Medications Generic Name Dose Route Start Last Admin Trade Name Noelq PRN Reason Stop Dose Admin Acetaminophen 650 mg 04/03/20 00:14 04/06/20 12:51 Tylenol - PO 650 mg Q4H PRN Administration PAIN LEVEL 4 - 6 Ascorbic Acid 500 mg 04/03/20 10:00 04/11/20 09:19 Vitamin C - PO 500 mg DAILY VIC Administration Cholecalciferol 1,000 unit 04/03/20 10:00 04/11/20 09:19 Vitamin D3 - PO 1,000 unit DAILY VIC Administration Heparin Sodium (Porcine) 5,000 unit 04/02/20 23:45 04/11/20 06:06 Heparin - SQ 5,000 unit TID VIC Administration Piperacillin Sod/Tazobactam 50 mls @ 100 mls/hr 04/10/20 18:00 04/11/20 09:18 Sod 3.375 gm/ Dextrose IVPB 100 mls/hr Q8H-IV VIC Administration Protocol Influenza Virus Vaccine Quadrival 60 mcg 04/03/20 10:00 Flulaval Quad [id number] IM 04/03/20 10:01 .ONCE ONE Insulin Aspart 1 vial 04/03/20 07:00 04/11/20 06:35 Novolog Vial Sliding Scale - SQ 2 unit ACHS [facility] Administration Protocol Insulin Aspart 7 units 04/09/20 13:58 04/11/20 06:35 Novolog Vial SQ 7 units TIDAC VIC Administration Insulin Detemir 13 units 04/11/20 22:00 Levemir Vial SQ BID@0700,2200 [facility] Pneumococcal 13-Valent Conj Vacc 0.5 ml 04/03/20 10:00 Prevnar 13 Syringe - IM 04/03/20 10:01 .ONCE ONE ASSESSMENT/PLAN: 50 y/o/m unknown medical history brought to ED after passers by noticed maggots on his feet admitted for sepsis 2/2 to RLE OM. #Sepsis 2/2 RLE OM 5th digit with Cellulitis -leukocytosis resolved; esr, crp elevated -RLE MRI: 5th digit OM + cellulitis -RLE wound cx: moderate proteus vulgaris, few proteus penneri & enterococcus- sensitive to vanc/ zosyn -blood cx's 04/02: gm+ cocci in clusters & gm pos bacilli likely enterococcus x 2 access sites -repeat blood cx's 04/03 NGTD -ID following: continue IV abx, zosyn & vanc, renally dosed -seen by podiatry: patient refusing all surgical intervention- will likely need 6 weeks outpatient abx therapy, needs placement for this tx -vascular surg consulted for wound debridement/ management of venous ulcers: Elevate the lower extremity above the level of the heart at all times while at rest. B/l compression with madelin wraps once cellulitis has receded (wrap from metacarpal heads to below knee). Domeboro soaks QD (astringent for pruritus). Apply Lac hydrin daily (for dry scaly skin). Wash LE with warm soapy water daily. Will sign off for now as no surgical intervention needed -echo 04/06: normal EF. trace MR/ TR -seen by Psychiatry, Dr. Kebede, deemed that patient does not have medical decision making capacity -Ethics Consult for Dr. Waterman as patient is refusing care but has been deemed to not have medical decision making capacity -Patient cannot be forced or restrained in order to perform amputation or dress his wounds. Will need plan for a safe post hospital facility that will accept him and continue his abx -Patient continues to refuse wound care and podiatry care, amenable to IV abx -Patient noted to have a positive tox screen for opiates. However, patient received Morphine in ED at 1542 on 04/02, Utox was ordered at 0135 on 04/03, therefore Utox is not accurate. Patient denies using opiates. #New onset DM2 -HbA1c 10.2% -started on levemir 12U HS -BGMs, ISS ACHS -Will start Janumet on discharge and refer to PCP/Endocrinology. -Diabetes education #Elevated Cr - Cr slowly rising, likely 2/2 to abx (Vanco, Zosyn) - monitor BUN/Cr #Hyponatremia -2/2 dehydration, resolved #Normocytic Anemia -H&H now improving -Drop in H/H likely dilutional -No signs of jose bleeding -B12/Ferritin/Folate wnl -FOBT: trace #DVT ppx -Heparin #FEN -no standing fluids -monitor and replete lytes as needed -diabetic diet #Dispo -seen by psychiatry and declared not to have medical decision making capacity. Seen by Dr. Waterman for ethics consult. If patient continues to refuse amputation and dressing of wounds then we cannot force him to receive care despite not having medical decision making capacity, will need post hospital facility to accept him and continue abx course. Patient continues to refused wou nd care/podiatry care. Visit type - Emergency Visit Emergency Visit: Yes ED Registration Date: 04/02/20 Care time: The patient presented to the Emergency Department on the above date and was hospitalized for further evaluation of their emergent condition. - New Patient This patient is new to me today: No - Critical Care Critical Care patient: No ATTENDING PHYSICIAN STATEMENT I saw and evaluated the patient. I reviewed the resident's note and discussed the case with the resident. I agree with the resident's findings and plan as documented. SUBJECTIVE: OBJECTIVE: ASSESSMENT AND PLAN:
--- NOTE | 2020-04-11 13:12 | PN ---
Teaching Attending Note Name of Resident: Ismael Juarez ATTENDING PHYSICIAN STATEMENT I saw and evaluated the patient. I reviewed the resident's note and discussed the case with the resident. I agree with the resident's findings and plan as documented. SUBJECTIVE: Seen and examined at bedside. Condition unchanged OBJECTIVE Last Vital Signs Temp Pulse Resp BP Pulse Ox 98 F 98 H 20 144/84 98 04/11/20 08:43 04/11/20 08:43 04/11/20 08:43 04/11/20 08:43 04/11/20 07:35 PE: per resident note Labs/Imaging: reviewed ASSESSMENT AND PLAN: 50 year old undomiciled male brought to ED after passers-by noticed maggots on his feet. Reports RLE pain/tenderness. CT RLE - suspicion of OM for 5th toe on right foot. #Sepsis secondary to RLE OM 5th toe with Cellulitis of Foot, infected ulcers with necrotic tissue (maggots) and Bacteremia Leukocytosis, tachycardia improved. MRI - OM R 5th MT -Vascular surgery and podiatry consulted: pt currently refusing surgical intervention -Cultures polymicrobial Continue IV Zosyn/Vanco for now as per ID Will need some form of placement as he is homeless and possibly undocumented. However, since he came in opiate positive it may not be able to dc pt on PICC line # DM 2 - A1c 10.2 Homeless, does not follow with PCP -levemir 20U -Lispro 7U TIDAC Continue sliding scale Will start Janumet on discharge and refer to PCP/Endocrinology. Diabetes education. DVT Px - Heparin SQ Dispo:Patient does not have capacity to make medical decisions. Is refusing care of his wounds. Per ethics we cannot force him to either debride his wounds or amputate digit. Pt has no insurance and is likely undocumented. NOTE: Positive opiate test on admission was taken AFTER he received morphine in the ED. There is NO confirmed history of opiate abuse.
[2020-04-11] MEDS ORDERED: INSULIN (NOVOLOG) ASPART 100 UNITS/ML 10ML VIAL ONE (18:14)
[2020-04-11] MEDS ORDERED: INSULIN (LEVEMIR) 100 UNITS/ML UNITS SQ ONE (18:14)
[2020-04-11] MEDS: INSULIN (LEVEMIR) 100 UNITS/ML UNITS SQ SCH (21:39)
[2020-04-12] MEDS ORDERED: DEXTROSE 5%-WATER - 50 ML IVPB ONE ×3 (00:58→17:16)
[2020-04-12] MEDS ORDERED: PIPERACILLIN/TAZOBACTAM 3.375 GM VIAL IVPB ONE ×3 (00:58→17:16)
[2020-04-12] MEDS: PIPERACILLIN/TAZOB 3.375 GM 3.375 GM in DEXTROSE 5%-WATER - 50 ML IVPB SCH ×3 (01:37→17:27)
[2020-04-12] MEDS: HEPARIN NA (PORCINE) 5,000 UNITS/ML 1ML VIAL SQ SCH ×3 (06:22→22:10)
[2020-04-12] MEDS: INSULIN (LEVEMIR) 100 UNITS/ML UNITS SQ SCH ×2 (06:22→22:11)
[2020-04-12] MEDS: INSULIN (NOVOLOG) ASPART 100 UNITS/ML 10ML VIAL SQ SCH ×3 (06:23→17:26)
[2020-04-12] MEDS: INSULIN SLIDING SCALE (NOVOLOG) 1 VIAL SQ SCH ×4 (06:24→22:10)
[2020-04-12 08:46] LABS: HEMOGLOBIN 10.6 GM/dL (11.7-16.9); MCHC 34.3 g/dl (32.0-35.9); MEAN CELL VOLUME 87.4 fl (80-96); MEAN PLT VOLUME 9.1 fl (7.5-11.1); PLATELET COUNT 218 K/MM3 (134-434); RBC 3.54 M/mm3 (4.00-5.60); RDW 14.1 % (11.9-15.9); WHITE BLOOD COUNT 7.4 K/mm3 (4.0-10.0)
[2020-04-12 09:06] LABS: CALCIUM 8.8 mg/dL (8.5-10.1); CREATININE 1.3 mg/dL (0.55-1.3)
[2020-04-12] MEDS: ASCORBIC ACID 500 MG TABLET (FP) PO SCH (10:01)
[2020-04-12] MEDS: CHOLECALCIFEROL (VIT D3) 1,000 UNIT (25 MCG) TABLET PO SCH (10:01)
--- NOTE | 2020-04-12 15:18 | PN ---
Teaching Attending Note Name of Resident: Oumou Medley ATTENDING PHYSICIAN STATEMENT I saw and evaluated the patient. I reviewed the resident's note and discussed the case with the resident. I agree with the resident's findings and plan as documented. SUBJECTIVE: Seen and examined at bedside. Condition unchanged OBJECTIVE Last Vital Signs Temp Pulse Resp BP Pulse Ox 97.6 F 91 H 20 140/86 98 04/12/20 15:00 04/12/20 15:00 04/12/20 15:00 04/12/20 15:00 04/11/20 21:00 PE: per resident note Labs/Imaging: reviewed ASSESSMENT AND PLAN: 50 year old undomiciled male brought to ED after passers-by noticed maggots on his feet. Reports RLE pain/tenderness. CT RLE - suspicion of OM for 5th toe on right foot. #Sepsis secondary to RLE OM 5th toe with Cellulitis of Foot, infected ulcers with necrotic tissue (maggots) and Bacteremia Leukocytosis, tachycardia improved. MRI - OM R 5th MT -Vascular surgery and podiatry consulted: pt currently refusing surgical intervention -Cultures polymicrobial Continue IV Zosyn/Vanco for now as per ID Will need some form of placement as he is homeless and possibly undocumented. However, since he came in opiate positive it may not be able to dc pt on PICC line # DM 2 - A1c 10.2 Homeless, does not follow with PCP -levemir 15U BID -Lispro 10U TIDAC Continue sliding scale DVT Px - Heparin SQ Dispo:Patient does not have capacity to make medical decisions. Is refusing care of his wounds. Per ethics we cannot force him to either debride his wounds or amputate digit. Pt has no insurance and is likely undocumented. NOTE: Positive opiate test on admission was taken AFTER he received morphine in the ED. There is NO confirmed history of opiate abuse.
--- NOTE | 2020-04-12 16:45 | PN ---
Physical Exam: SUBJECTIVE: Patient seen and examined by the bedside, endorses BL lef pain R>L, feeling well otherwise , OBJECTIVE: Vital Signs Period Temp Pulse Resp BP Sys/Perkins Pulse Ox Last 24 Hr 97.6 F-98.1 F 81-94 18-20 124-140/57-86 98 GENERAL: The patient is awake, alert, and fully oriented, in no acute distress. HEENT: NCAT, PERRL, MMM LUNGS: Breath sounds equal, no crackles or wheezes HEART: RRR ABDOMEN: Soft, NT, non distended EXTREMITIES: Extensive venous stasis ulcers b/l LE with chronic skin changes. R 5th toe ulcer with serous drainage and necrotic tissue. Dried blood on right lower extremity. SKIN: Warm, dry Laboratory Results - last 24 hr 04/11/20 04/11/20 04/12/20 17:08 20:37 05:34 WBC RBC Hgb Hct MCV MCH MCHC RDW Plt Count MPV Sodium Potassium Chloride Carbon Dioxide Anion Gap BUN Creatinine Est GFR (CKD-EPI)AfAm Est GFR (CKD-EPI)NonAf POC Glucometer 166 185 141 Random Glucose Calcium 04/12/20 04/12/20 04/12/20 06:45 06:45 11:07 WBC 7.4 RBC 3.54 L Hgb 10.6 L Hct 31.0 L MCV 87.4 MCH 30.0 MCHC 34.3 RDW 14.1 Plt Count 218 MPV 9.1 Sodium 138 Potassium 4.0 Chloride 105 Carbon Dioxide 26 Anion Gap 7 L BUN 19.0 H Creatinine 1.3 Est GFR (CKD-EPI)AfAm 73.74 Est GFR (CKD-EPI)NonAf 63.62 POC Glucometer 165 Random Glucose 148 H Calcium 8.8 Active Medications Generic Name Dose Route Start Last Admin Trade Name Freq PRN Reason Stop Dose Admin Acetaminophen 650 mg 04/03/20 00:14 04/06/20 12:51 Tylenol - PO 650 mg Q4H PRN Administration PAIN LEVEL 4 - 6 Ascorbic Acid 500 mg 04/03/20 10:00 04/12/20 10:01 Vitamin C - PO 500 mg DAILY VIC Administration Cholecalciferol 1,000 unit 04/03/20 10:00 04/12/20 10:01 Vitamin D3 - PO 1,000 unit DAILY VIC Administration Heparin Sodium (Porcine) 5,000 unit 04/02/20 23:45 04/12/20 14:36 Heparin - SQ 5,000 unit TID [facility] Administration Piperacillin Sod/Tazobactam 50 mls @ 100 mls/hr 04/10/20 18:00 04/12/20 09:57 Sod 3.375 gm/ Dextrose IVPB 100 mls/hr Q8H-IV VIC Administration Protocol Insulin Aspart 1 vial 04/03/20 07:00 04/12/20 11:09 Novolog Vial Sliding Scale - SQ 2 unit ACHS [facility] Administration Protocol Insulin Aspart 10 units 04/12/20 16:30 Novolog Vial SQ TIDAC [facility] Insulin Detemir 15 units 04/12/20 22:00 Levemir Vial SQ BID@0700,2200 [facility] ASSESSMENT/PLAN: 50M undomiciled, unknown PMH, brought to ED after passers by noticed maggots on his feet, admitted for sepsis 2/2 to RLE metatarsal OM. #Sepsis 2/2 RLE OM 5th digit with Cellulitis - RLE MRI: 5th digit OM + cellulitis - RLE wound cx: moderate proteus vulgaris, few proteus penneri & enterococcus- sensitive to vanc/ zosyn - repeat blood cx's 04/03 NGTD - Currently on Zosyn (04/02), was previously on Vanc (04/02-) - Podiatry: patient refusing all surgical intervention- will likely need 6 weeks outpatient abx therapy - Vascular consult for wound debridement/ management of venous ulcers: Elevate the lower extremity above the level of the heart at all times while at rest. B/l compression with madelin wraps once cellulitis has receded (wrap from metacarpal he ads to below knee). Domeboro soaks QD (astringent for pruritus). Apply Lac hydrin daily (for dry scaly skin). Wash LE with warm soapy water daily. Will sign off for now as no surgical intervention needed - Psych consult: Patient lacks Functional capacity to make informed decisions about his care due to severe cognitive impairment and very poor Judgment - Ethics consult: If patient continues to refuse amputation and dressing of wounds then we cannot force him to receive care despite not having medical decision making capacity, will need post hospital facility to accept him and continue abx course. Patient continues to refused wound care/podiatry care. - Noted to have positive tox screen for opiates. However, patient received Morphine in ED at 1542 on 04/02, Utox was ordered at 0135 on 04/03, therefore Utox is not accurate. Patient denies using opiates. #Hx of undiagnosed DM - HbA1c 10.2% - Started on Levemir 12U HS, increased to 15U with 10U Novolog TID due to poor glycemic control - Will start Janumet on discharge and refer to PCP/Endocrinology. - Diabetes education given #Normocytic Anemia - H&H now improving 10.6/31.0 today - Drop in H/H likely dilutional - No signs of jose bleeding -B12/Ferritin/Folate wnl - FOBT (04/06): trace #DVT ppx -Heparin 5k TID #FEN - no standing fluids - monitor and replete lytes as needed - DM diet #Dispo - Monitor in M/S Visit type - Emergency Visit Emergency Visit: Yes ED Registration Date: 04/02/20 Care time: The patient presented to the Emergency Department on the above date and was hospitalized for further evaluation of their emergent condition. - New Patient This patient is new to me today: No - Critical Care Critical Care patient: No ATTENDING PHYSICIAN STATEMENT I saw and evaluated the patient. I reviewed the resident's note and discussed the case with the resident. I agree with the resident's findings and plan as documented. SUBJECTIVE: OBJECTIVE: ASSESSMENT AND PLAN:
[2020-04-12] MEDS ORDERED: INSULIN (NOVOLOG) ASPART 100 UNITS/ML 10ML VIAL ONE (21:16)
[2020-04-13] MEDS ORDERED: PIPERACILLIN/TAZOBACTAM 3.375 GM VIAL IVPB ONE ×2 (02:20→10:15)
[2020-04-13] MEDS ORDERED: DEXTROSE 5%-WATER - 50 ML IVPB ONE ×2 (02:20→10:16)
[2020-04-13] MEDS: PIPERACILLIN/TAZOB 3.375 GM 3.375 GM in DEXTROSE 5%-WATER - 50 ML IVPB SCH ×2 (02:54→10:21)
[2020-04-13] MEDS: HEPARIN NA (PORCINE) 5,000 UNITS/ML 1ML VIAL SQ SCH ×3 (06:21→21:21)
[2020-04-13] MEDS: INSULIN (NOVOLOG) ASPART 100 UNITS/ML 10ML VIAL SQ SCH ×3 (06:21→17:36)
[2020-04-13] MEDS: INSULIN (LEVEMIR) 100 UNITS/ML UNITS SQ SCH ×2 (06:22→21:38)
[2020-04-13] MEDS: INSULIN SLIDING SCALE (NOVOLOG) 1 VIAL SQ SCH ×4 (06:23→21:37)
[2020-04-13 08:42] LABS: BASO % 0.8 % (0-2.0); EOS % 0.8 % (0-4.5); HEMATOCRIT 31.9 % (35.4-49); HEMOGLOBIN 10.8 GM/dL (11.7-16.9); LYMPH % 32.2 % (8-40); MCH 29.6 pg (25.7-33.7); MCHC 33.9 g/dl (32.0-35.9); MEAN CELL VOLUME 87.2 fl (80-96); MEAN PLT VOLUME 8.9 fl (7.5-11.1); MONO % 5.5 % (3.8-10.2); NEUT % 60.7 % (42.8-82.8); PLATELET COUNT 230 K/MM3 (134-434); RBC 3.66 M/mm3 (4.00-5.60); RDW 14.4 % (11.9-15.9); WHITE BLOOD COUNT 7.7 K/mm3 (4.0-10.0)
[2020-04-13 09:07] LABS: ALBUMIN 2.9 g/dl (3.4-5.0); BILIRUBIN,TOTAL 0.3 mg/dL (0.2-1); BLOOD UREA NITROGEN 19.2 mg/dL (7-18); CALCIUM 9.1 mg/dL (8.5-10.1); CREATININE 1.3 mg/dL (0.55-1.3); POTASSIUM 3.9 mmol/L (3.5-5.1); TOT PROT 7.7 g/dl (6.4-8.2)
[2020-04-13] MEDS: CHOLECALCIFEROL (VIT D3) 1,000 UNIT (25 MCG) TABLET PO SCH (10:21)
[2020-04-13] MEDS: ASCORBIC ACID 500 MG TABLET (FP) PO SCH (10:21)
[2020-04-13] MEDS ORDERED: ACETAMINOPHEN 1000 MG/100 ML VIAL (NON FORMULARY) IVPB ONE (11:30)
--- NOTE | 2020-04-13 17:04 | PN ---
Physical Exam: SUBJECTIVE: Patient seen and examined by the bedside. Resting comfortably in bed. OBJECTIVE: Vital Signs Period Temp Pulse Resp BP Sys/Perkins Pulse Ox Last 24 Hr 97.3 F-98.1 F 84-99 18-20 121-132/71-83 95 GENERAL: AOx3 HEENT: EUSEBIO, MMM LUNGS: Breath sounds equal, no crackles or wheezes HEART: RRR ABDOMEN: Soft, NT, non distended EXTREMITIES: Extensive venous stasis ulcers LE BL with chronic skin changes. R 5th toe ulcer with serous drainage and necrotic tissue. Dried blood on right lower extremity. SKIN: Warm, dry Laboratory Results - last 24 hr 04/12/20 04/12/20 04/13/20 17:25 20:54 06:20 WBC RBC Hgb Hct MCV MCH MCHC RDW Plt Count MPV Absolute Neuts (auto) Neutrophils % Lymphocytes % Monocytes % Eosinophils % Basophils % Nucleated RBC % Sodium Potassium Chloride Carbon Dioxide Anion Gap BUN Creatinine Est GFR (CKD-EPI)AfAm Est GFR (CKD-EPI)NonAf POC Glucometer 207 194 146 Random Glucose Calcium Total Bilirubin AST ALT Alkaline Phosphatase Total Protein Albumin 04/13/20 04/13/20 04/13/20 08:10 08:10 11:47 WBC 7.7 RBC 3.66 L Hgb 10.8 L Hct 31.9 L MCV 87.2 MCH 29.6 MCHC 33.9 RDW 14.4 Plt Count 230 MPV 8.9 Absolute Neuts (auto) 4.7 Neutrophils % 60.7 Lymphocytes % 32.2 Monocytes % 5.5 Eosinophils % 0.8 Basophils % 0.8 Nucleated RBC % 0 Sodium 141 Potassium 3.9 Chloride 109 H Carbon Dioxide 24 Anion Gap 7 L BUN 19.2 H Creatinine 1.3 Est GFR (CKD-EPI)AfAm 73.74 Est GFR (CKD-EPI)NonAf 63.62 POC Glucometer 133 Random Glucose 112 H Calcium 9.1 Total Bilirubin 0.3 AST 17 ALT 35 Alkaline Phosphatase 84 Total Protein 7.7 Albumin 2.9 L Active Medications Generic Name Dose Route Start Last Admin Trade Name Freq PRN Reason Stop Dose Admin Acetaminophen 650 mg 04/03/20 00:14 04/06/20 12:51 Tylenol - PO 650 mg Q4H PRN Administration PAIN LEVEL 4 - 6 Ascorbic Acid 500 mg 04/03/20 10:00 04/13/20 10:21 Vitamin C - PO 500 mg DAILY VIC Administration Cholecalciferol 1,000 unit 04/03/20 10:00 04/13/20 10:21 Vitamin D3 - PO 1,000 unit DAILY VIC Administration Heparin Sodium (Porcine) 5,000 unit 04/02/20 23:45 04/13/20 15:29 Heparin - SQ 5,000 unit TID [facility] Administration Piperacillin Sod/Tazobactam 50 mls @ 100 mls/hr 04/10/20 18:00 04/13/20 10:21 Sod 3.375 gm/ Dextrose IVPB 100 mls/hr Q8H-IV [facility] Administration Protocol Vancomycin HCl 1,250 mg/ 250 mls @ 166.667 mls/hr 04/13/20 21:00 Dextrose IVPB Q12H [facility] Protocol Insulin Aspart 1 vial 04/03/20 07:00 04/13/20 11:48 Novolog Vial Sliding Scale - SQ Not Given ACHS [facility] Protocol Insulin Aspart 10 units 04/12/20 16:30 04/13/20 11:51 Novolog Vial SQ 10 units TIDAC [facility] Administration Insulin Detemir 15 units 04/12/20 22:00 04/13/20 06:22 Levemir Vial SQ 15 units BID@0700,2200 [facility] Administration ASSESSMENT/PLAN: #Sepsis 2/2 RLE OM 5th digit with Cellulitis - RLE MRI: 5th digit OM + cellulitis - Wound cx: Polymicrobial, Repeat Blood cx (04/03) NGTD - Currently on Zosyn (04/02) and Vanc - Podiatry consult: patient refusing all surgical intervention- will likely need 6 weeks outpatient abx therapy - Vascular consult: For wound debridement/ management of venous ulcers: - Elevate the lower extremity above the level of the heart at all times while at rest - BL compression with JOSELITO wraps once cellulitis has receded (wrap from metacarpal heads to below knee) - Domeboro soaks QD (astringent for pruritus). Apply Lac hydrin daily (for dry scaly skin). Wash LE with warm soapy water daily. - Psych consult: Pt lacks functional capacity to make informed decisions about his care due to severe cognitive impairment/poor judgment - Ethics consult: Can not force care despite not having medical decision making capacity - Will need post hospital facility to accept him and continue abx course. Patient continues to refused wound care/podiatry care. - UTox: Positive for opiates, performed after receiving Morphine in ED at 1542 on 04/02, pt denies opiate use #Hx of undiagnosed DM - HbA1c 10.2% - Started on Levemir 12U HS, increased to 15U with 10U Novolog TID due to poor glycemic control - Will start Janumet on discharge and refer to PCP/Endocrinology. - Diabetes education given #Normocytic Anemia - H&H now improving 10.6/31.0 -> 10.8/31.9 - Likely dilutional, no bleeding - B12/Ferritin/Folate wnl - FOBT (04/06): trace #DVT ppx -Heparin 5k TID #FEN - no standing fluids - monitor and replete lytes as needed - DM diet #Dispo - Monitor in M/S Visit type - Emergency Visit Emergency Visit: Yes ED Registration Date: 04/02/20 Care time: The patient presented to the Emergency Department on the above date and was hospitalized for further evaluation of their emergent condition. - New Patient This patient is new to me today: No - Critical Care Critical Care patient: No ATTENDING PHYSICIAN STATEMENT I saw and evaluated the patient. I reviewed the resident's note and discussed the case with the resident. I agree with the resident's findings and plan as documented. SUBJECTIVE: OBJECTIVE: ASSESSMENT AND PLAN:
--- NOTE | 2020-04-13 18:59 | PN ---
Teaching Attending Note Name of Resident: Usman Hoang ATTENDING PHYSICIAN STATEMENT I saw and evaluated the patient. I reviewed the resident's note and discussed the case with the resident. I agree with the resident's findings and plan as documented. SUBJECTIVE: Feeling well. Admits to some discomfort RLE. Still refusing debridement/amputation/any surgical intervention OBJECTIVE: Afebrile, hemodynamicaly Stable. Last Vital Signs Temp Pulse Resp BP Pulse Ox 97.7 F 97 H 18 127/78 95 04/13/20 14:00 04/13/20 14:00 04/13/20 14:00 04/13/20 14:04/13/20 09:00 HEENT - Atraumatic, Normocephalic. Heart - S1, S2, RRR Lungs - clear to auscultation Abdomen - Soft, non-tender. Stephen sounds normal. Extremities - Chronic venous stasis skin changes with ulceration/maceration over jin, swelling/discoloration/discharge of the R 5th toe. Neuro - AAO x 3. Tone/Power normal all extremities. Laboratory Results - last 24 hr 04/12/20 04/13/20 04/13/20 20:54 06:20 08:10 WBC 7.7 RBC 3.66 L Hgb 10.8 L Hct 31.9 L MCV 87.2 MCH 29.6 MCHC 33.9 RDW 14.4 Plt Count 230 MPV 8.9 Absolute Neuts (auto) 4.7 Neutrophils % 60.7 Lymphocytes % 32.2 Monocytes % 5.5 Eosinophils % 0.8 Basophils % 0.8 Nucleated RBC % 0 Sodium Potassium Chloride Carbon Dioxide Anion Gap BUN Creatinine Est GFR (CKD-EPI)AfAm Est GFR (CKD-EPI)NonAf POC Glucometer 194 146 Random Glucose Calcium Total Bilirubin AST ALT Alkaline Phosphatase Total Protein Albumin 04/13/20 04/13/20 04/13/20 08:10 11:47 17:27 WBC RBC Hgb Hct MCV MCH MCHC RDW Plt Count MPV Absolute Neuts (auto) Neutrophils % Lymphocytes % Monocytes % Eosinophils % Basophils % Nucleated RBC % Sodium 141 Potassium 3.9 Chloride 109 H Carbon Dioxide 24 Anion Gap 7 L BUN 19.2 H Creatinine 1.3 Est GFR (CKD-EPI)AfAm 73.74 Est GFR (CKD-EPI)NonAf 63.62 POC Glucometer 133 210 Random Glucose 112 H Calcium 9.1 Total Bilirubin 0.3 AST 17 ALT 35 Alkaline Phosphatase 84 Total Protein 7.7 Albumin 2.9 L Current Medications Generic Name Dose Route Start Last Admin Trade Name Apurva PRN Reason Stop Dose Admin Acetaminophen 650 mg 04/03/20 00:14 04/06/20 12:51 Tylenol - PO 650 mg Q4H PRN Administration PAIN LEVEL 4 - 6 Ascorbic Acid 500 mg 04/03/20 10:00 04/13/20 10:21 Vitamin C - PO 500 mg DAILY [facility] Administration Cholecalciferol 1,000 unit 04/03/20 10:00 04/13/20 10:21 Vitamin D3 - PO 1,000 unit DAILY [facility] Administration Heparin Sodium (Porcine) 5,000 unit 04/02/20 23:45 04/13/20 15:29 Heparin - SQ 5,000 unit TID [facility] Administration Vancomycin HCl 1,250 mg/ 250 mls @ 166.667 mls/hr 04/13/20 21:00 Dextrose IVPB Q12H [facility] Protocol Insulin Aspart 1 vial 04/03/20 07:00 04/13/20 17:35 Novolog Vial Sliding Scale - SQ 4 unit ACHS [facility] Administration Protocol Insulin Aspart 10 units 04/12/20 16:30 04/13/20 17:36 Novolog Vial SQ 10 units TIDAC [facility] Administration Insulin Detemir 15 units 04/12/20 22:00 04/13/20 06:22 Levemir Vial SQ 15 units BID@0700,2200 [facility] Administration Home Medications Medication Instructions Recorded NK [No Known Home Medication] 04/02/20 ASSESSMENT AND PLAN: 50 year old undomiciled male brought to ED after passers-by noticed maggots on his feet. He reported RLE pain/tenderness. CT RLE - suspicion of OM for 5th toe on right foot. 1. Sepsis secondary to RLE OM 5th toe with Cellulitis of Foot, infected ulcers with necrotic tissue and Bacteremia Leukocytosis, tachycardia resolved MRI - OM R 5th MT Blood Cx positive for Gram positive Bacilli/Gram positive cocci/Group D strep or Enterococcus Wound Cx - Proteus Vascular surgery and podiatry consulted - patient currently refusing surgical intervention Continue IV Zosyn/Vanco for now as per ID Will need some form of placement as he is homeless and possibly undocumented. 2. Lacks capacity - as determined by Psychiatric evaluation He has limited insight into the significance and consequences of refusing surgical intervention for his necrotic ulceration and 5th toe osteomyelitis. Ethics consulted - remains unclear as to the appropriate way forward regarding surgical necessity. Issue escalated to hospital administration, awaiting plan/decision regarding best interest of the patient - surgical intervention (wound debridement/toe amputation vs 6 weeks of IV Abx therapy, for which he will likely need to remain as an inpatient due to his homelessness and likely undomiciled status and lack of insurance). 3. DM 2 - Newly diagnosed, A1c 10.2 Homeless, does not follow with PCP Started on Levemir/Novolog before meals/as per sliding scale. Will need referral to PCP/Endocrinology on discharge Diabetes education. DVT Px - Heparin SQ Dispo - Patient does not have capacity to make medical decisions. He is refusing wound care, cleaning, dressing or any surgical debridement or intervention. As per ethics, patient cannot be forced to undergo debridement of his wounds or amputate his toe. Pt has no insurance and is likely undocumented. NOTE: Positive opiate test on admission was taken AFTER he received morphine in the ED. There is NO confirmed history of opiate abuse.
[2020-04-13] MEDS ORDERED: PT OWN MED DRAWER 7, Y5N ONE (20:04)
[2020-04-13] MEDS: VANCOMYCIN 1,250 MG in DEXTROSE 5%-WATER - 250 ML IVPB SCH (21:21)
[2020-04-14] MEDS ORDERED: PIPERACILLIN/TAZOBACTAM 3.375 GM VIAL IVPB ONE ×3 (01:09→17:11)
[2020-04-14] MEDS ORDERED: DEXTROSE 5%-WATER - 50 ML IVPB ONE ×3 (01:09→17:11)
[2020-04-14] MEDS: PIPERACILLIN/TAZOB 3.375 GM 3.375 GM in DEXTROSE 5%-WATER - 50 ML IVPB SCH ×3 (01:18→17:16)
[2020-04-14] MEDS: HEPARIN NA (PORCINE) 5,000 UNITS/ML 1ML VIAL SQ SCH ×3 (06:07→21:00)
[2020-04-14] MEDS: INSULIN (NOVOLOG) ASPART 100 UNITS/ML 10ML VIAL SQ SCH ×3 (06:07→16:35)
[2020-04-14] MEDS: INSULIN (LEVEMIR) 100 UNITS/ML UNITS SQ SCH ×2 (06:08→21:05)
[2020-04-14 07:51] LABS: BASO % 0.7 % (0-2.0); HEMATOCRIT 30.9 % (35.4-49); HEMOGLOBIN 10.6 GM/dL (11.7-16.9); LYMPH % 31.3 % (8-40); MCH 29.8 pg (25.7-33.7); MCHC 34.2 g/dl (32.0-35.9); MEAN PLT VOLUME 9.2 fl (7.5-11.1); MONO % 5.7 % (3.8-10.2); NEUT % 61.3 % (42.8-82.8); PLATELET COUNT 223 K/MM3 (134-434); RBC 3.55 M/mm3 (4.00-5.60); RDW 14.4 % (11.9-15.9); WHITE BLOOD COUNT 6.2 K/mm3 (4.0-10.0)
[2020-04-14 08:18] LABS: ALBUMIN 2.8 g/dl (3.4-5.0); BILIRUBIN,TOTAL 0.5 mg/dL (0.2-1); CREATININE 1.2 mg/dL (0.55-1.3); MAGNESIUM 2.5 mg/dL (1.8-2.4); TOT PROT 7.3 g/dl (6.4-8.2)
[2020-04-14] MEDS ORDERED: PT OWN MED DRAWER 7, Y5N ONE ×2 (09:03→20:30)
[2020-04-14] MEDS: VANCOMYCIN 1,250 MG in DEXTROSE 5%-WATER - 250 ML IVPB SCH ×2 (09:12→21:00)
[2020-04-14] MEDS: ASCORBIC ACID 500 MG TABLET (FP) PO SCH (09:12)
[2020-04-14] MEDS: CHOLECALCIFEROL (VIT D3) 1,000 UNIT (25 MCG) TABLET PO SCH (09:12)
[2020-04-14] MEDS: INSULIN SLIDING SCALE (NOVOLOG) 1 VIAL SQ SCH ×4 (11:00→21:05)
--- NOTE | 2020-04-14 12:21 | EKG ---
Test Reason : Blood Pressure : / mmHG Vent. Rate : 093 BPM Atrial Rate : 093 BPM P-R Int : 154 ms QRS Dur : 078 ms QT Int : 378 ms P-R-T Axes : 037 009 033 degrees QTc Int : 469 ms NORMAL SINUS RHYTHM NORMAL ECG WHEN COMPARED WITH ECG OF 02-APR-2020 16:59, NO SIGNIFICANT CHANGE WAS FOUND Confirmed by Abraham Caicedo MD ([id number]) on 04/14/2020 12:20:41 PM Referred By: Marcus ORTEGA Confirmed By:Abraham Caicedo MD
--- NOTE | 2020-04-14 12:56 | PN ---
Physical Exam: SUBJECTIVE: Patient seen and examined by the bedside. Resting comfortably in bed. Still refusing any intervention for LE wounds OBJECTIVE: Vital Signs Period Temp Pulse Resp BP Sys/Perkins Pulse Ox Last 24 Hr 97.4 F-97.8 F 76-97 18-20 127-133/67-80 95 GENERAL: AOx3 HEENT: EUSEBOI, MMM LUNGS: Breath sounds equal, no crackles or wheezes HEART: RRR ABDOMEN: Soft, NT, non distended EXTREMITIES: Extensive venous stasis ulcers LE BL with chronic skin changes. R 5th toe ulcer with serous drainage and necrotic tissue. Dried blood on right lower extremity. SKIN: Warm, dry Laboratory Results - last 24 hr 04/13/20 04/13/20 04/14/20 17:27 21:37 06:07 WBC RBC Hgb Hct MCV MCH MCHC RDW Plt Count MPV Absolute Neuts (auto) Neutrophils % Lymphocytes % Monocytes % Eosinophils % Basophils % Nucleated RBC % Sodium Potassium Chloride Carbon Dioxide Anion Gap BUN Creatinine Est GFR (CKD-EPI)AfAm Est GFR (CKD-EPI)NonAf POC Glucometer 210 205 148 Random Glucose Calcium Phosphorus Magnesium Total Bilirubin AST ALT Alkaline Phosphatase Total Protein Albumin 04/14/20 04/14/20 04/14/20 06:36 06:36 11:07 WBC 6.2 RBC 3.55 L Hgb 10.6 L Hct 30.9 L MCV 87.0 MCH 29.8 MCHC 34.2 RDW 14.4 Plt Count 223 MPV 9.2 Absolute Neuts (auto) 3.8 Neutrophils % 61.3 Lymphocytes % 31.3 Monocytes % 5.7 Eosinophils % 1.0 Basophils % 0.7 Nucleated RBC % 0 Sodium 139 Potassium 4.0 Chloride 108 H Carbon Dioxide 23 Anion Gap 8 BUN 17.0 Creatinine 1.2 Est GFR (CKD-EPI)AfAm 81.23 Est GFR (CKD-EPI)NonAf 70.09 POC Glucometer 236 Random Glucose 141 H Calcium 9.0 Phosphorus 4.0 Magnesium 2.5 H Total Bilirubin 0.5 AST 16 ALT 33 Alkaline Phosphatase 83 Total Protein 7.3 Albumin 2.8 L Active Medications Generic Name Dose Route Start Last Admin Trade Name Freq PRN Reason Stop Dose Admin Acetaminophen 650 mg 04/03/20 00:14 04/06/20 12:51 Tylenol - PO 650 mg Q4H PRN Administration PAIN LEVEL 4 - 6 Ascorbic Acid 500 mg 04/03/20 10:00 04/14/20 09:12 Vitamin C - PO 500 mg DAILY VIC Administration Cholecalciferol 1,000 unit 04/03/20 10:00 04/14/20 09:12 Vitamin D3 - PO 1,000 unit DAILY [facility] Administration Heparin Sodium (Porcine) 5,000 unit 04/02/20 23:45 04/14/20 06:07 Heparin - SQ 5,000 unit TID [facility]IC Administration Vancomycin HCl 1,250 mg/ 250 mls @ 166.667 mls/hr 04/13/20 21:00 04/14/20 09:12 Dextrose IVPB 166.667 mls/hr Q12H [facility] Administration Protocol Piperacillin Sod/Tazobactam 50 mls @ 100 mls/hr 04/14/20 02:00 04/14/20 11:02 Sod 3.375 gm/ Dextrose IVPB 100 mls/hr Q8H-IV [facility] Administration Protocol Insulin Aspart 1 vial 04/03/20 07:00 04/14/20 11:09 Novolog Vial Sliding Scale - SQ 4 unit ACHS [facility] Administration Protocol Insulin Aspart 10 units 04/12/20 16:30 04/14/20 11:09 Novolog Vial SQ 10 units TIDAC [facility] Administration Insulin Detemir 15 units 04/12/20 22:00 04/14/20 06:08 Levemir Vial SQ 15 units BID@0700,2200 [facility] Administration ASSESSMENT/PLAN: #Sepsis 2/2 RLE OM 5th digit with Cellulitis - RLE MRI: 5th digit OM + cellulitis - Wound cx: Polymicrobial, Repeat Blood cx (04/03) NGTD - Currently on Zosyn (04/02) and Vanc will need Vanc trough before 4th dose on 04/15 - Podiatry consult: patient refusing all surgical intervention- will likely need 6 weeks outpatient abx therapy - Vascular consult: For wound debridement/ management of venous ulcers: - Elevate the lower extremity above the level of the heart at all times while at rest - BL compression with JOSELITO wraps once cellulitis has receded (wrap from metacarpal heads to below knee) - Domeboro soaks QD (astringent for pruritus). Apply Lac hydrin daily (for dry scaly skin). Wash LE with warm soapy water daily. - Psych consult: Pt lacks functional capacity to make informed decisions about his care due to severe cognitive impairment/poor judgment - Ethics consult: Can not force care despite not having medical decision making capacity - Will need post hospital facility to accept him and continue abx course. Patient continues to refused wound care/podiatry care. - U Tox: Positive for opiates, performed after receiving Morphine in ED at 1542 on 04/02, pt denies opiate use #Hx of undiagnosed DM - HbA1c 10.2% - Started on Levemir 12U HS, increased to 15U with 10U Novolog TID due to poor glycemic control - Will start Janumet on discharge and refer to PCP/Endocrinology. - Diabetes education given #Normocytic Anemia - H&H now improving 10.6/31.0 -> 10.8/31.9 -> 10.6/30.9 - Likely dilutional, no bleeding - B12/Ferritin/Folate wnl - FOBT (04/06): trace #DVT ppx -Heparin 5k TID #FEN - no standing fluids - monitor and replete lytes as needed - DM diet #Dispo - Monitor in M/S Visit type - Emergency Visit Emergency Visit: Yes ED Registration Date: 04/02/20 Care time: The patient presented to the Emergency Department on the above date and was hospitalized for further evaluation of their emergent condition. - New Patient This patient is new to me today: No - Critical Care Critical Care patient: No ATTENDING PHYSICIAN STATEMENT I saw and evaluated the patient. I reviewed the resident's note and discussed the case with the resident. I agree with the resident's findings and plan as documented. SUBJECTIVE: OBJECTIVE: ASSESSMENT AND PLAN:
--- NOTE | 2020-04-14 18:17 | PN ---
Teaching Attending Note Name of Resident: Usman Hoang ATTENDING PHYSICIAN STATEMENT I saw and evaluated the patient. I reviewed the resident's note and discussed the case with the resident. I agree with the resident's findings and plan as documented. SUBJECTIVE: Feeling well. No complaints. Still refusing debridement/amputation/any surgical intervention. Also declining wound cleaning and dressing. OBJECTIVE: Afebrile, Hemodynamicaly Stable. Last Vital Signs Temp Pulse Resp BP Pulse Ox 97.3 F L 91 H 20 145/81 95 04/14/20 16:30 04/14/20 16:30 04/14/20 16:30 04/14/20 16:30 04/13/20 21:00 Heart - S1, S2, RRR Lungs - clear to auscultation Abdomen - Soft, non-tender. Bowel Sounds normal. Extremities - Chronic venous stasis skin changes with ulceration/maceration over R jin, swelling/discoloration/discharge of the R 5th toe. Neuro - AAO x 3. Tone/Power normal all extremities. Laboratory Results - last 24 hr 04/13/20 04/14/20 04/14/20 21:37 06:07 06:36 WBC 6.2 RBC 3.55 L Hgb 10.6 L Hct 30.9 L MCV 87.0 MCH 29.8 MCHC 34.2 RDW 14.4 Plt Count 223 MPV 9.2 Absolute Neuts (auto) 3.8 Neutrophils % 61.3 Lymphocytes % 31.3 Monocytes % 5.7 Eosinophils % 1.0 Basophils % 0.7 Nucleated RBC % 0 Sodium Potassium Chloride Carbon Dioxide Anion Gap BUN Creatinine Est GFR (CKD-EPI)AfAm Est GFR (CKD-EPI)NonAf POC Glucometer 205 148 Random Glucose Calcium Phosphorus Magnesium Total Bilirubin AST ALT Alkaline Phosphatase Total Protein Albumin 04/14/20 04/14/20 04/14/20 06:36 11:07 16:32 WBC RBC Hgb Hct MCV MCH MCHC RDW Plt Count MPV Absolute Neuts (auto) Neutrophils % Lymphocytes % Monocytes % Eosinophils % Basophils % Nucleated RBC % Sodium 139 Potassium 4.0 Chloride 108 H Carbon Dioxide 23 Anion Gap 8 BUN 17.0 Creatinine 1.2 Est GFR (CKD-EPI)AfAm 81.23 Est GFR (CKD-EPI)NonAf 70.09 POC Glucometer 236 211 Random Glucose 141 H Calcium 9.0 Phosphorus 4.0 Magnesium 2.5 H Total Bilirubin 0.5 AST 16 ALT 33 Alkaline Phosphatase 83 Total Protein 7.3 Albumin 2.8 L Current Medications Generic Name Dose Route Start Last Admin Trade Name Apurva PRN Reason Stop Dose Admin Acetaminophen 650 mg 04/03/20 00:14 04/06/20 12:51 Tylenol - PO 650 mg Q4H PRN Administration PAIN LEVEL 4 - 6 Ascorbic Acid 500 mg 04/03/20 10:00 04/14/20 09:12 Vitamin C - PO 500 mg DAILY [facility] Administration Cholecalciferol 1,000 unit 04/03/20 10:00 04/14/20 09:12 Vitamin D3 - PO 1,000 unit DAILY [facility] Administration Heparin Sodium (Porcine) 5,000 unit 04/02/20 23:45 04/14/20 13:37 Heparin - SQ 5,000 unit TID [facility] Administration Vancomycin HCl 1,250 mg/ 250 mls @ 166.667 mls/hr 04/13/20 21:00 04/14/20 09:12 Dextrose IVPB 166.667 mls/hr Q12H [facility] Administration Protocol Piperacillin Sod/Tazobactam 50 mls @ 100 mls/hr 04/14/20 02:00 04/14/20 17:16 Sod 3.375 gm/ Dextrose IVPB 100 mls/hr Q8H-IV [facility] Administration Protocol Insulin Aspart 1 vial 04/03/20 07:00 04/14/20 16:34 Novolog Vial Sliding Scale - SQ 4 unit ACHS [facility] Administration Protocol Insulin Aspart 10 units 04/12/20 16:30 04/14/20 16:35 Novolog Vial SQ 10 units TIDAC [facility] Administration Insulin Detemir 15 units 04/12/20 22:00 04/14/20 06:08 Levemir Vial SQ 15 units BID@0700,2200 [facility] Administration Home Medications Medication Instructions Recorded NK [No Known Home Medication] 04/02/20 ASSESSMENT AND PLAN: 50 year old undomiciled male brought to ED after passers-by noticed maggots on his feet. He reported RLE pain/tenderness. CT RLE - suspicion of OM for 5th toe on right foot. 1. Sepsis secondary to RLE OM 5th toe with Cellulitis of Foot, infected/necrotic ulcers and Bacteremia Leukocytosis, tachycardia resolved - Sepsis resolved. MRI - OM R 5th MT Blood Cx positive for Gram positive Bacilli/Gram positive cocci/Group D strep or Enterococcus Wound Cx - Proteus Vascular surgery and podiatry consulted - patient currently refusing surgical intervention recommended by surgical specialties Continue IV Zosyn/Vanco as per ID - will need at least 6 weeks of Abx therapy in the absence of surgical intervention. Will need some form of placement as he is homeless and possibly undocumented. 2. Lacks capacity - as determined by Psychiatric evaluation He has limited insight into the significance and consequences of refusing surgical intervention for his necrotic ulceration and 5th toe osteomyelitis. Ethics consulted - remains unclear as to the appropriate way forward regarding surgical necessity. Issue escalated to hospital administration, awaiting plan/decision regarding best interest of the patient - surgical intervention (wound debridement/toe amputation vs 6 weeks of IV Abx therapy, for which he will likely need to remain as an inpatient due to his homelessness and likely undocumented status with lack of insurance). 3. DM 2 - Newly diagnosed, A1c 10.2 Homeless, does not follow with PCP Started on Levemir/Novolog before meals/as per sliding scale. Will need referral to PCP/Endocrinology on discharge Diabetes education, unclear regarding capacity to understand and comply. DVT Px - Heparin SQ Dispo - Patient does not have capacity to make medical decisions. He is refus ing wound care, cleaning, dressing or any surgical debridement or intervention. As per ethics, patient cannot be forced to undergo debridement of his wounds or amputate his toe. Pt has no insurance and is likely undocumented. NOTE: Positive opiate test on admission was taken AFTER he received morphine in the ED. There is NO confirmed history of opiate abuse.
[2020-04-14] MEDS ORDERED: CHLORHEXIDINE GLUCONATE 4% CLEANSER FOR DECOLONIZATION TP SCH (22:00)
[2020-04-14] MEDS ORDERED: MUPIROCIN 2% TOPICAL OINTMENT FOR DECOLONIZATION NS SCH (22:00)
[2020-04-15] MEDS ORDERED: DEXTROSE 5%-WATER - 50 ML IVPB ONE ×2 (00:51→09:59)
[2020-04-15] MEDS ORDERED: PIPERACILLIN/TAZOBACTAM 3.375 GM VIAL IVPB ONE ×2 (00:51→09:58)
[2020-04-15] MEDS: PIPERACILLIN/TAZOB 3.375 GM 3.375 GM in DEXTROSE 5%-WATER - 50 ML IVPB SCH ×2 (01:36→10:40)
[2020-04-15] MEDS: HEPARIN NA (PORCINE) 5,000 UNITS/ML 1ML VIAL SQ SCH ×3 (05:35→21:41)
[2020-04-15] MEDS: INSULIN (LEVEMIR) 100 UNITS/ML UNITS SQ SCH ×2 (06:09→21:41)
[2020-04-15] MEDS: INSULIN (NOVOLOG) ASPART 100 UNITS/ML 10ML VIAL SQ SCH ×3 (06:09→16:30)
[2020-04-15] MEDS: INSULIN SLIDING SCALE (NOVOLOG) 1 VIAL SQ SCH ×4 (06:09→21:42)
[2020-04-15 07:40] LABS: BASO % 0.8 % (0-2.0); EOS % 1.1 % (0-4.5); HEMATOCRIT 30.4 % (35.4-49); HEMOGLOBIN 10.2 GM/dL (11.7-16.9); LYMPH % 31.4 % (8-40); MCH 29.4 pg (25.7-33.7); MCHC 33.7 g/dl (32.0-35.9); MEAN CELL VOLUME 87.3 fl (80-96); MEAN PLT VOLUME 9.4 fl (7.5-11.1); MONO % 6.5 % (3.8-10.2); NEUT % 60.2 % (42.8-82.8); PLATELET COUNT 218 K/MM3 (134-434); RBC 3.48 M/mm3 (4.00-5.60); RDW 14.6 % (11.9-15.9); WHITE BLOOD COUNT 5.9 K/mm3 (4.0-10.0)
[2020-04-15 08:05] LABS: ALBUMIN 2.8 g/dl (3.4-5.0); BILIRUBIN,TOTAL 0.5 mg/dL (0.2-1); BLOOD UREA NITROGEN 16.9 mg/dL (7-18); CREATININE 1.3 mg/dL (0.55-1.3); MAGNESIUM 2.4 mg/dL (1.8-2.4); PHOSPHOROUS 3.8 mg/dL (2.5-4.9); POTASSIUM 3.9 mmol/L (3.5-5.1); TOT PROT 7.4 g/dl (6.4-8.2)
[2020-04-15] MEDS ORDERED: PT OWN MED DRAWER 7, Y5N ONE ×2 (08:07→08:55)
[2020-04-15] MEDS: VANCOMYCIN 1,250 MG in DEXTROSE 5%-WATER - 250 ML IVPB SCH (09:02)
[2020-04-15] MEDS: CHOLECALCIFEROL (VIT D3) 1,000 UNIT (25 MCG) TABLET PO SCH (09:12)
[2020-04-15] MEDS: ASCORBIC ACID 500 MG TABLET (FP) PO SCH (09:12)
--- NOTE | 2020-04-15 10:54 | PN ---
Progress Note, Physician History of Present Illness: stable no new issues - Current Medication List Current Medications: Active Medications Acetaminophen (Tylenol -) 650 mg PO Q4H PRN PRN Reason: PAIN LEVEL 4 - 6 Last Admin: 04/06/20 12:51 Dose: 650 mg Documented by: Ascorbic Acid (Vitamin C -) 500 mg PO DAILY [facility] Last Admin: 04/15/20 09:12 Dose: 500 mg Documented by: Cholecalciferol (Vitamin D3 -) 1,000 unit PO DAILY [facility] Last Admin: 04/15/20 09:12 Dose: 1,000 unit Documented by: Heparin Sodium (Porcine) (Heparin -) 5,000 unit SQ TID [facility] Last Admin: 04/15/20 05:35 Dose: 5,000 unit Documented by: Vancomycin HCl 1,250 mg/ (Dextrose) 250 mls @ 166.667 mls/hr IVPB Q12H [facility]; Pro tocol Last Admin: 04/15/20 09:02 Dose: 166.667 mls/hr Documented by: Piperacillin Sod/Tazobactam (Sod 3.375 gm/ Dextrose) 50 mls @ 100 mls/hr IVPB Q8H-IV [facility]; Protocol Last Admin: 04/15/20 10:40 Dose: 100 mls/hr Documented by: Insulin Aspart (Novolog Vial Sliding Scale -) 1 vial SQ ACHS [facility]; Protocol Last Admin: 04/15/20 06:09 Dose: 2 unit Documented by: Insulin Aspart (Novolog Vial) 10 units SQ TIDAC [facility] Last Admin: 04/15/20 06:09 Dose: 10 units Documented by: Insulin Detemir (Levemir Vial) 15 units SQ BID@0700,2200 [facility] Last Admin: 04/15/20 06:09 Dose: 15 units Documented by: - Objective Vital Signs: Vital Signs Temperature 97.8 F 04/15/20 08:30 Pulse Rate 85 04/15/20 08:30 Respiratory Rate 20 04/15/20 08:30 Blood Pressure 154/83 04/15/20 08:30 O2 Sat by Pulse Oximetry (%) 96 04/14/20 20:50 Constitutional: Yes: No Distress, Calm Cardiovascular: Yes: S1, S2 Respiratory: Yes: Regular, CTA Bilaterally Gastrointestinal: Yes: Normal Bowel Sounds, Soft Musculoskeletal: Yes: WNL Extremities: Yes: Erythema (improved), Other Neurological: Yes: Alert, Oriented Psychiatric: Yes: Alert, Oriented Labs: CBC, BMP 04/15/20 06:20 04/15/20 06:20 INR, PTT INR 1.39 (0.83-1.09) H 04/02/20 16:00 Assessment/Plan Problem List - Problems (1) Homeless single person Code(s): Z59.0 - HOMELESSNESS (2) Hyperglycemia Code(s): R73.9 - HYPERGLYCEMIA, UNSPECIFIED (3) Lactic acid acidosis Code(s): E87.2 - ACIDOSIS (4) Sepsis Code(s): A41.9 - SEPSIS, UNSPECIFIED ORGANISM Qualifiers: Sepsis type: sepsis due to unspecified organism Sepsis acute organ dysfunction status: unspecified Qualified Code(s): A41.9 - Sepsis, unspecified organism (5) Trench foot Code(s): T69.029A - IMMERSION FOOT, UNSPECIFIED FOOT, INITIAL ENCOUNTER Qualifiers: Encounter type: initial encounter Laterality: unspecified laterality Qualified Code(s): T69.029A - Immersion foot, unspecified foot, initial encounter Assessment/Plan 50 y.o. undomiciled male with no known PMH presented with RLE swelling/worsening RLE wounds with drainage Sepsis Bacteremia RLE cellulitis with infected LE ulcers Rt 5th proximal phalanx OM Hyperglycemia/elevated HgAIC - DM Homeless -will change him to oral abx wound care
--- NOTE | 2020-04-15 11:56 | PN ---
<VernflorentinoMurrayosRoxanna - Last Filed: 04/15/20 11:38> Physical Exam: SUBJECTIVE: Patient seen and examined at bedside this morning. No acute events overnight. Patient still refusing any surgical intervention. Still refuses to have his wounds cleaned and dressed. Refused to walk with physical therapy. OBJECTIVE: Vital Signs Temperature 97.8 F 04/15/20 08:30 Pulse Rate 85 04/15/20 08:30 Respiratory Rate 20 04/15/20 08:30 Blood Pressure 154/83 04/15/20 08:30 O2 Sat by Pulse Oximetry (%) 96 04/14/20 20:50 GENERAL: The patient is awake, alert, and fully oriented, in no acute distress. HEAD: Normal with no signs of trauma. EYES: PERRLA, EOMI, sclera anicteric, conjunctiva clear. ENT: moist mucous membranes. NECK: Trachea midline, full range of motion, supple. LUNGS: Breath sounds equal, clear to auscultation bilaterally. HEART: Regular rate and rhythm, S1, S2. ABDOMEN: Soft, nontender, nondistended, normoactive bowel sounds. EXTREMITIES: Chronic venous stasis skin changes bilaterally, with ulceration/maceration over RLE, +swelling and discharge on the R toe Laboratory Results - last 24 hr 04/14/20 04/14/20 04/15/20 16:32 21:02 06:20 WBC 5.9 RBC 3.48 L Hgb 10.2 L Hct 30.4 L MCV 87.3 MCH 29.4 MCHC 33.7 RDW 14.6 Plt Count 218 MPV 9.4 Absolute Neuts (auto) 3.6 Neutrophils % 60.2 Lymphocytes % 31.4 Monocytes % 6.5 Eosinophils % 1.1 Basophils % 0.8 Nucleated RBC % 0 Sodium Potassium Chloride Carbon Dioxide Anion Gap BUN Creatinine Est GFR (CKD-EPI)AfAm Est GFR (CKD-EPI)NonAf POC Glucometer 211 218 Random Glucose Calcium Phosphorus Magnesium Total Bilirubin AST ALT Alkaline Phosphatase Total Protein Albumin 04/15/20 04/15/20 06:20 11:23 WBC RBC Hgb Hct MCV MCH MCHC RDW Plt Count MPV Absolute Neuts (auto) Neutrophils % Lymphocytes % Monocytes % Eosinophils % Basophils % Nucleated RBC % Sodium 139 Potassium 3.9 Chloride 108 H Carbon Dioxide 25 Anion Gap 7 L BUN 16.9 Creatinine 1.3 Est GFR (CKD-EPI)AfAm 73.74 Est GFR (CKD-EPI)NonAf 63.62 POC Glucometer 167 Random Glucose 144 H Calcium 9.0 Phosphorus 3.8 Magnesium 2.4 Total Bilirubin 0.5 AST 14 L ALT 31 Alkaline Phosphatase 80 Total Protein 7.4 Albumin 2.8 L Active Medications Generic Name Dose Route Start Last Admin Trade Name Freq PRN Reason Stop Dose Admin Acetaminophen 650 mg 04/03/20 00:14 04/06/20 12:51 Tylenol - PO 650 mg Q4H PRN Administration PAIN LEVEL 4 - 6 Ascorbic Acid 500 mg 04/03/20 10:00 04/15/20 09:12 Vitamin C - PO 500 mg DAILY [facility] Administration Cholecalciferol 1,000 unit 04/03/20 10:00 04/15/20 09:12 Vitamin D3 - PO 1,000 unit DAILY [facility] Administration Heparin Sodium (Porcine) 5,000 unit 04/02/20 23:45 04/15/20 05:35 Heparin - SQ 5,000 unit TID [facility] Administration Insulin Aspart 1 vial 04/03/20 07:00 04/15/20 11:26 Novolog Vial Sliding Scale - SQ 2 unit ACHS [facility] Administration Protocol Insulin Aspart 10 units 04/12/20 16:30 04/15/20 11:27 Novolog Vial SQ 10 units TIDAC [facility] Administration Insulin Detemir 15 units 04/12/20 22:00 04/15/20 06:09 Levemir Vial SQ 15 units BID@0700,2200 [facility] Administration Levofloxacin 750 mg 04/15/20 11:00 04/15/20 11:19 Levaquin - PO 750 mg DAILY VIC Administration ASSESSMENT/PLAN: Patient is a 50 year old undomiciled male presented to the ED after he was found by passers-by to be lying on the streets with maggots on his legs. #Sepsis likely 2/2 R 5th toe OM, RLE cellulitis and necrotic ulcers, with Gram + Bacteremia - RLE MRI: 5th digit OM + cellulitis - Wound cx: Polymicrobial, Repeat Blood cx (04/03) NGTD - IV Zosyn switched to Levaquin 750mg PO daily as per ID - Podiatry consult: patient refusing all surgical intervention - Vascular consult: For wound debridement/ management of venous ulcers: - Elevate the lower extremity above the level of the heart at all times while at rest - BL compression with JOSELITO wraps once cellulitis has receded (wrap from metacarpal heads to below knee) - Domeboro soaks QD (astringent for pruritus). Apply Lac hydrin daily (for dry scaly skin). Wash LE with warm soapy water daily. - U Tox: Positive for opiates, performed after receiving Morphine in ED at 1542 on 04/02, pt denies opiate use #Newly diagnosed DM -HbA1c 10.2 -Started on Levemir 15u BID -Insulin Novolog 10u TIDAC and sliding scale ACHS #FEN -No standing fluids -electrolytes wnl, routine bmp monitoring -Diabetic diet #Prophylaxis -Heparin 5000u sq tid #Disposition -full code -Patient determined to lack capacity to make decisions. as per psychiatry. As per ethics, patient cannot be forced to undergo debridement of his wounds or amputate his toe. Patient is undocumented and has no insurance. Patient continues to refuse his wound cleaned and dressed, and declines any surgical intervention. ATTENDING PHYSICIAN STATEMENT I saw and evaluated the patient. I reviewed the resident's note and discussed the case with the resident. I agree with the resident's findings and plan as documented. SUBJECTIVE: OBJECTIVE: ASSESSMENT AND PLAN: <Ariane Maher - Last Filed: 04/15/20 16:35> Physical Exam: SUBJECTIVE: Patient seen and examined OBJECTIVE: Vital Signs Period Temp Pulse Resp BP Sys/Perkins Pulse Ox Last 24 Hr 97.6 F-97.8 F 84-104 18-20 125-154/70-83 96 Laboratory Results - last 24 hr 04/14/20 04/15/20 04/15/20 21:02 06:20 06:20 WBC 5.9 RBC 3.48 L Hgb 10.2 L Hct 30.4 L MCV 87.3 MCH 29.4 MCHC 33.7 RDW 14.6 Plt Count 218 MPV 9.4 Absolute Neuts (auto) 3.6 Neutrophils % 60.2 Lymphocytes % 31.4 Monocytes % 6.5 Eosinophils % 1.1 Basophils % 0.8 Nucleated RBC % 0 Sodium 139 Potassium 3.9 Chloride 108 H Carbon Dioxide 25 Anion Gap 7 L BUN 16.9 Creatinine 1.3 Est GFR (CKD-EPI)AfAm 73.74 Est GFR (CKD-EPI)NonAf 63.62 POC Glucometer 218 Random Glucose 144 H Calcium 9.0 Phosphorus 3.8 Magnesium 2.4 Total Bilirubin 0.5 AST 14 L ALT 31 Alkaline Phosphatase 80 Total Protein 7.4 Albumin 2.8 L 04/15/20 04/15/20 11:23 16:27 WBC RBC Hgb Hct MCV MCH MCHC RDW Plt Count MPV Absolute Neuts (auto) Neutrophils % Lymphocytes % Monocytes % Eosinophils % Basophils % Nucleated RBC % Sodium Potassium Chloride Carbon Dioxide Anion Gap BUN Creatinine Est GFR (CKD-EPI)AfAm Est GFR (CKD-EPI)NonAf POC Glucometer 167 131 Random Glucose Calcium Phosphorus Magnesium Total Bilirubin AST ALT Alkaline Phosphatase Total Protein Albumin Active Medications Generic Name Dose Route Start Last Admin Trade Name Freq PRN Reason Stop Dose Admin Acetaminophen 650 mg 04/03/20 00:14 04/06/20 12:51 Tylenol - PO 650 mg Q4H PRN Administration PAIN LEVEL 4 - 6 Ascorbic Acid 500 mg 04/03/20 10:00 04/15/20 09:12 Vitamin C - PO 500 mg DAILY VIC Administration Cholecalciferol 1,000 unit 04/03/20 10:00 04/15/20 09:12 Vitamin D3 - PO 1,000 unit DAILY VIC Administration Heparin Sodium (Porcine) 5,000 unit 04/02/20 23:45 04/15/20 13:33 Heparin - SQ 5,000 unit TID VIC Administration Insulin Aspart 1 vial 04/03/20 07:00 04/15/20 16:29 Novolog Vial Sliding Scale - SQ Not Given ACHS [facility] Protocol Insulin Aspart 10 units 04/12/20 16:30 04/15/20 16:30 Novolog Vial SQ Not Given TIDAC [facility] Insulin Detemir 15 units 04/12/20 22:00 04/15/20 06:09 Levemir Vial SQ 15 units BID@0700,2200 [facility]IC Administration Levofloxacin 750 mg 04/15/20 11:00 04/15/20 11:19 Levaquin - PO 750 mg DAILY VIC Administration ASSESSMENT/PLAN: PATIENT IS REFUSING EVERYTHING HE JUST SAID LEAVE ME ALONE CONTINUE WITH ABOVE TREATMENT Visit type - Emergency Visit Emergency Visit: Yes ED Registration Date: 04/02/20 Care time: The patient presented to the Emergency Department on the above date and was hospitalized for further evaluation of their emergent condition. - New Patient This patient is new to me today: Yes Date on this admission: 04/15/20 - Critical Care Critical Care patient: No - Discharge Referral Referred to [facility] Med P.C.: No ATTENDING PHYSICIAN STATEMENT I saw and evaluated the patient. I reviewed the resident's note and discussed the case with the resident. I agree with the resident's findings and plan as documented. SUBJECTIVE: OBJECTIVE: ASSESSMENT AND PLAN:
[2020-04-16] MEDS: INSULIN SLIDING SCALE (NOVOLOG) 1 VIAL SQ SCH ×4 (06:34→21:16)
[2020-04-16] MEDS: HEPARIN NA (PORCINE) 5,000 UNITS/ML 1ML VIAL SQ SCH ×3 (07:01→21:12)
[2020-04-16] MEDS: INSULIN (NOVOLOG) ASPART 100 UNITS/ML 10ML VIAL SQ SCH ×3 (07:02→16:38)
[2020-04-16] MEDS: INSULIN (LEVEMIR) 100 UNITS/ML UNITS SQ SCH ×2 (07:02→21:16)
[2020-04-16] MEDS ORDERED: PT OWN MED DRAWER 7, Y5N ONE (10:18)
[2020-04-16] MEDS: ASCORBIC ACID 500 MG TABLET (FP) PO SCH (10:49)
[2020-04-16] MEDS: CHOLECALCIFEROL (VIT D3) 1,000 UNIT (25 MCG) TABLET PO SCH (10:49)
[2020-04-16] MEDS ORDERED: INSULIN (NOVOLOG) ASPART 100 UNITS/ML 10ML VIAL ONE (16:41)
--- NOTE | 2020-04-16 16:48 | PN ---
Progress Note, Physician History of Present Illness: 50 year old undomiciled male brought to ED after passers-by noticed maggots on h is feet admitted with Sepsis secondary to RLE OM 5th toe with Cellulitis of Foot infected/necrotic ulcers and Bacteremia Enterococcus Faecalis & Cdc Group Eo-2. Today: Pt seen and examined at bedside in [facility] Has no active c/o - Current Medication List Current Medications: Active Medications Acetaminophen (Tylenol -) 650 mg PO Q4H PRN PRN Reason: PAIN LEVEL 4 - 6 Last Admin: 04/06/20 12:51 Dose: 650 mg Documented by: Ascorbic Acid (Vitamin C -) 500 mg PO DAILY [facility] Last Admin: 04/16/20 10:49 Dose: 500 mg Documented by: Cholecalciferol (Vitamin D3 -) 1,000 unit PO DAILY [facility] Last Admin: 04/16/20 10:49 Dose: 1,000 unit Documented by: Heparin Sodium (Porcine) (Heparin -) 5,000 unit SQ TID [facility] Last Admin: 04/16/20 13:26 Dose: 5,000 unit Documented by: Insulin Aspart (Novolog Vial Sliding Scale -) 1 vial SQ ACHS [facility]; Protocol Last Admin: 04/16/20 16:37 Dose: 2 unit Documented by: Insulin Aspart (Novolog Vial) 10 units SQ TIDAC [facility] Last Admin: 04/16/20 16:38 Dose: 10 units Documented by: Insulin Detemir (Levemir Vial) 15 units SQ BID@0700,2200 [facility] Last Admin: 04/16/20 07:02 Dose: 15 units Documented by: Levofloxacin (Levaquin -) 750 mg PO DAILY [facility] Last Admin: 04/16/20 10:48 Dose: 750 mg Documented by: - Objective Vital Signs: Vital Signs Temperature 98.0 F 04/16/20 14:42 Pulse Rate 106 H 04/16/20 14:42 Respiratory Rate 20 04/16/20 14:42 Blood Pressure 129/71 04/16/20 14:42 O2 Sat by Pulse Oximetry (%) 96 04/16/20 09:00 Constitutional: Yes: Well Nourished, No Distress Cardiovascular: Yes: Regular Rate and Rhythm Respiratory: Yes: CTA Bilaterally Gastrointestinal: Yes: Normal Bowel Sounds, Soft Extremities: Yes: Other ( complete skin breakdown on the anterio aspect of the right leg with multiple draining ulcerations noted throughout, seropurulent drainage, warm to touch and edematous, on the left 5th MT head there is a large interspace ulceration which probes deep down to bone, mild purulence is noted malodorous ; grossly palpable pedal pulses noted) Labs: CBC, BMP 04/15/20 06:20 04/15/20 06:20 INR, PTT INR 1.39 (0.83-1.09) H 04/02/20 16:00 Impression/Plan Impression/Plan: 50 year old undomiciled male brought to ED after passers-by noticed maggots on his feet admitted with Sepsis secondary to RLE OM 5th toe with Cellulitis of Foot infected/necrotic ulcers and Bacteremia Enterococcus Faecalis & Cdc Group Eo-2. VS: Afeb BP 129/71 96% on RA Labs: CBC: No leukocytosis H/H Stable BMP: BUN/Creat 16/1.3 LFT: AST/ALT/ALP Micro: 04/03 BCx x2 NGTD 04/03 WCx Proteus Penneri, Proteus Vulgaris, Enterococcus Faecalis 04/02 BCx x2: Cdc Group Eo-2 and Enterococcus Faecalis MRI - OM R 5th MT; Left LE without OM Sepsis secondary to RLE OM 5th toe with Cellulitis of Foot infected/necrotic ulcers and Bacteremia Enterococcus Faecalis & Cdc Group Eo-2 Pt lacks capacity per notes and requires Surgical intervention per Vasc/Pod ID On board switched to Levaquin 750 mg Daily 04/15-TD Zosyn 04/02- 04/15 Needs 6 wk total Abx DMII HbA1C 10.2 Detemir 15 BID SQ and Novolog 10 units TID ISS Monitor F/S range DVT Px: on HSQ 5K TID GI Px- not indicated Diet Diabetic Visit type - Emergency Visit Emergency Visit: Yes ED Registration Date: 04/02/20 Care time: The patient presented to the Emergency Department on the above date and was hospitalized for further evaluation of their emergent condition. - New Patient This patient is new to me today: Yes Date on this admission: 04/16/20 - Critical Care Critical Care patient: No - Discharge Referral Referred to [facility] Med P.C.: No
--- NOTE | 2020-04-16 16:53 | PN ---
Physical Exam: SUBJECTIVE: Patient seen and examined by the bedside. Resting comfortably in bed. OBJECTIVE: Vital Signs Period Temp Pulse Resp BP Sys/Perkins Pulse Ox Last 24 Hr 97.4 F-98.2 F 76-106 20-20 120-145/70-84 96-96 GENERAL: AOx3 HEENT: EUSEBIO, MMM LUNGS: Breath sounds equal, no crackles or wheezes HEART: RRR ABDOMEN: Soft, NT, non distended EXTREMITIES: Extensive venous stasis ulcers LE BL with chronic skin changes. R 5th toe ulcer with serous drainage and necrotic tissue. Dried blood on right lower extremity. SKIN: Warm, dry Laboratory Results - last 24 hr 04/15/20 04/16/20 04/16/20 20:20 06:22 11:17 POC Glucometer 183 150 140 04/16/20 16:36 POC Glucometer 176 Active Medications Generic Name Dose Route Start Last Admin Trade Name Freq PRN Reason Stop Dose Admin Acetaminophen 650 mg 04/03/20 00:14 04/06/20 12:51 Tylenol - PO 650 mg Q4H PRN Administration PAIN LEVEL 4 - 6 Ascorbic Acid 500 mg 04/03/20 10:00 04/16/20 10:49 Vitamin C - PO 500 mg DAILY [facility]IC Administration Cholecalciferol 1,000 unit 04/03/20 10:00 04/16/20 10:49 Vitamin D3 - PO 1,000 unit DAILY [facility]IC Administration Heparin Sodium (Porcine) 5,000 unit 04/02/20 23:45 04/16/20 13:26 Heparin - SQ 5,000 unit TID [facility]IC Administration Insulin Aspart 1 vial 04/03/20 07:00 04/16/20 16:37 Novolog Vial Sliding Scale - SQ 2 unit ACHS [facility]IC Administration Protocol Insulin Aspart 10 units 04/12/20 16:30 04/16/20 16:38 Novolog Vial SQ 10 units TIDAC [facility]IC Administration Insulin Detemir 15 units 04/12/20 22:00 04/16/20 07:02 Levemir Vial SQ 15 units BID@0700,2200 [facility] Administration Levofloxacin 750 mg 04/15/20 11:00 04/16/20 10:48 Levaquin - PO 750 mg DAILY VIC Administration ASSESSMENT/PLAN: 50M with unknown PMH admitted for sepsis 2/2 to RLE 5th MT OM. #Sepsis 2/2 RLE OM 5th digit with Cellulitis - RLE MRI: 5th digit OM + cellulitis - Wound cx: Polymicrobial, Repeat Blood cx (04/03) NG after 5 days - Started on Levaquin (04/15), completed 2 weeks of Zosyn+Vanc (04/02-04/15) before that, needsa total of 6 weeks of abx - Podiatry consult: patient refusing all surgical intervention- will likely need 6 weeks outpatient abx therapy - Vascular consult: For wound debridement/management of venous ulcers: - Elevate the lower extremity above the level of the heart at all times while at rest - BL compression with JOSELITO wraps once cellulitis has receded (wrap from metacarpal heads to below knee) - Domeboro soaks QD (astringent for pruritus). Apply Lac hydrin daily (for dry scaly skin). Wash LE with warm soapy water daily. - Psych consult: Pt lacks functional capacity to make informed decisions about his care due to severe cognitive impairment/poor judgment - Ethics consult: Can not force care despite not having medical decision making capacity - Will need post hospital facility to accept him and continue abx course. Patient continues to refused wound care/podiatry care. - U Tox: Positive for opiates, performed after receiving Morphine in ED at 1542 on 04/02, pt denies opiate use #Hx of undiagnosed DM - HbA1c 10.2% - Started on Levemir 15 U BID with 10U Novolog TID due to poor glycemic control - Will start Janumet on discharge and refer to PCP/Endocrinology. - Diabetes education given #Normocytic Anemia - H&H now improving 10.6/31.0 -> 10.8/31.9 -> 10.6/30.9 -> - Likely dilutional, no bleeding - B12/Ferritin/Folate wnl - FOBT (04/06): trace #DVT ppx -Heparin 5k TID #FEN - no standing fluids - monitor and replete lytes as needed - DM diet #Dispo - Monitor in M/S Visit type - Emergency Visit Emergency Visit: Yes ED Registration Date: 04/02/20 Care time: The patient presented to the Emergency Department on the above date and was hospitalized for further evaluation of their emergent condition. - New Patient This patient is new to me today: No - Critical Care Critical Care patient: No ATTENDING PHYSICIAN STATEMENT I saw and evaluated the patient. I reviewed the resident's note and discussed the case with the resident. I agree with the resident's findings and plan as documented. SUBJECTIVE: OBJECTIVE: ASSESSMENT AND PLAN:
[2020-04-17] MEDS: HEPARIN NA (PORCINE) 5,000 UNITS/ML 1ML VIAL SQ SCH ×3 (06:04→21:57)
[2020-04-17] MEDS: INSULIN SLIDING SCALE (NOVOLOG) 1 VIAL SQ SCH ×4 (06:10→21:59)
[2020-04-17] MEDS: INSULIN (NOVOLOG) ASPART 100 UNITS/ML 10ML VIAL SQ SCH ×2 (06:11→16:44)
[2020-04-17] MEDS: INSULIN (LEVEMIR) 100 UNITS/ML UNITS SQ SCH ×2 (06:12→21:58)
[2020-04-17 07:39] LABS: BASO % 0.7 % (0-2.0); EOS % 0.5 % (0-4.5); HEMATOCRIT 34.2 % (35.4-49); HEMOGLOBIN 11.3 GM/dL (11.7-16.9); LYMPH % 27.7 % (8-40); MCH 29.3 pg (25.7-33.7); MCHC 33.1 g/dl (32.0-35.9); MEAN CELL VOLUME 88.3 fl (80-96); MEAN PLT VOLUME 9.7 fl (7.5-11.1); MONO % 5.3 % (3.8-10.2); NEUT % 65.8 % (42.8-82.8); PLATELET COUNT 210 K/MM3 (134-434); RBC 3.87 M/mm3 (4.00-5.60); RDW 14.6 % (11.9-15.9); WHITE BLOOD COUNT 7.8 K/mm3 (4.0-10.0)
[2020-04-17 07:57] LABS: ALBUMIN 3.1 g/dl (3.4-5.0); BILIRUBIN,TOTAL 0.4 mg/dL (0.2-1); BLOOD UREA NITROGEN 18.9 mg/dL (7-18); CALCIUM 9.5 mg/dL (8.5-10.1); CREATININE 1.2 mg/dL (0.55-1.3); MAGNESIUM 2.5 mg/dL (1.8-2.4); POTASSIUM 3.9 mmol/L (3.5-5.1); TOT PROT 7.4 g/dl (6.4-8.2)
[2020-04-17] MEDS: CHOLECALCIFEROL (VIT D3) 1,000 UNIT (25 MCG) TABLET PO SCH (09:46)
[2020-04-17] MEDS: ASCORBIC ACID 500 MG TABLET (FP) PO SCH (09:46)
--- NOTE | 2020-04-17 15:08 | PN ---
Progress Note, Physician History of Present Illness: 50 year old undomiciled male brought to ED after passers-by noticed maggots on h is feet admitted with Sepsis secondary to RLE OM 5th toe with Cellulitis of Foot infected/necrotic ulcers and Bacteremia Enterococcus Faecalis & Cdc Group Eo-2. Today: Pt seen and examined at bedside in [facility] Has no active c/o States his legs are improving Has not yet ambulated Refuses any dressings on it - Current Medication List Current Medications: Active Medications Acetaminophen (Tylenol -) 650 mg PO Q4H PRN PRN Reason: PAIN LEVEL 4 - 6 Last Admin: 04/06/20 12:51 Dose: 650 mg Documented by: Ascorbic Acid (Vitamin C -) 500 mg PO DAILY [facility] Last Admin: 04/17/20 09:46 Dose: 500 mg Documented by: Cholecalciferol (Vitamin D3 -) 1,000 unit PO DAILY [facility] Last Admin: 04/17/20 09:46 Dose: 1,000 unit Documented by: Heparin Sodium (Porcine) (Heparin -) 5,000 unit SQ TID [facility] Last Admin: 04/17/20 06:04 Dose: 5,000 unit Documented by: Insulin Aspart (Novolog Vial Sliding Scale -) 1 vial SQ [facility]; Protocol Last Admin: 04/17/20 13:48 Dose: Not Given Documented by: Insulin Aspart (Novolog Vial) 12 units SQ TIDAC [facility] Insulin Detemir (Levemir Vial) 15 units SQ BID@0700,2200 [facility] Last Admin: 04/17/20 06:12 Dose: 15 units Documented by: Levofloxacin (Levaquin -) 750 mg PO DAILY [facility] Last Admin: 04/17/20 09:46 Dose: 750 mg Documented by: - Objective Vital Signs: Vital Signs Temperature 98.0 F 04/17/20 14:02 Pulse Rate 111 H 04/17/20 14:02 Respiratory Rate 20 04/17/20 14:02 Blood Pressure 133/78 04/17/20 14:02 O2 Sat by Pulse Oximetry (%) 96 04/17/20 09:00 Constitutional: Yes: Well Nourished, No Distress, Calm Cardiovascular: Yes: Regular Rate and Rhythm Respiratory: Yes: CTA Bilaterally Gastrointestinal: Yes: Normal Bowel Sounds, Soft, Abdomen, Obese Extremities: Yes: Other (B/L Extensive skin breakdown in Lower extremities with serosanguinous drainage complete skin breakdown on the anterio aspect of the right leg with multiple draining ulcerations noted throughout, seropurulent drainage, warm to touch and edematous, on the left 5th MT head there is a large interspace ulceration which probes deep down to bone, mild purulence is noted malodorous ; grossly palpable pedal pulses noted)) Edema: No Labs: CBC, BMP 04/17/20 06:35 04/17/20 06:00 INR, PTT INR 1.39 (0.83-1.09) H 04/02/20 16:00 Impression/Plan Impression/Plan: 50 year old undomiciled male brought to ED after passers-by noticed maggots on his feet admitted with Sepsis secondary to RLE OM 5th toe with Cellulitis of Foot infected/necrotic ulcers and Bacteremia Enterococcus Faecalis & Cdc Group Eo-2. VS: Afeb BP 133/78 96% on RA Labs: CBC: No leukocytosis H/H Stable BMP: BUN/Creat 18/1.2 Micro: 04/03 BCx x2 NGTD 04/03 WCx Proteus Penneri, Proteus Vulgaris, Enterococcus Faecalis 04/02 BCx x2: Cdc Group Eo-2 and Enterococcus Faecalis MRI - OM R 5th MT; Left LE without OM Sepsis secondary to RLE OM 5th toe with Cellulitis of Foot infected/necrotic ulcers and Bacteremia Enterococcus Faecalis & Cdc Group Eo-2 Pt lacks capacity per notes and requires Surgical intervention per Vasc/Pod Repeat BCx on 04/03 NGTD ID On board switched to Levaquin 750 mg Daily 04/15-TD Zosyn 04/02- 04/15 Needs 6 wk total Abx DMII HbA1C 10.2 Detemir 15 BID SQ and Novolog 12 units TID ISS Monitor F/S range Supp care: DVT Px: on HSQ 5K TID GI Px- not indicated Diet Diabetic Visit type - Emergency Visit Emergency Visit: Yes ED Registration Date: 04/02/20 Care time: The patient presented to the Emergency Department on the above date a nd was hospitalized for further evaluation of their emergent condition. - New Patient This patient is new to me today: No - Critical Care Critical Care patient: No - Discharge Referral Referred to [facility] Med [facility].C.: No
--- NOTE | 2020-04-17 16:51 | PN ---
Physical Exam: SUBJECTIVE: Patient seen and examined by the bedside. Resting comfortably in bed. OBJECTIVE: Vital Signs Period Temp Pulse Resp BP Sys/Perkins Pulse Ox Last 24 Hr 98.0 F-98.3 F 92-111 20- 133-141/65-78 96-96 GENERAL: AOx3 HEENT: EUSEBIO, MMM LUNGS: Breath sounds equal, no crackles or wheezes HEART: RRR ABDOMEN: Soft, NT, non distended EXTREMITIES: Extensive venous stasis ulcers LE BL with chronic skin changes. R 5th toe ulcer with serous drainage and necrotic tissue. Dried blood on right lower extremity. SKIN: Warm, dry Laboratory Results - last 24 hr 04/16/20 04/16/20 04/17/20 16:36 21:15 06:00 WBC RBC Hgb Hct MCV MCH MCHC RDW Plt Count MPV Absolute Neuts (auto) Neutrophils % Lymphocytes % Monocytes % Eosinophils % Basophils % Nucleated RBC % Sodium 138 Potassium 3.9 Chloride 106 Carbon Dioxide 24 Anion Gap 7 L BUN 18.9 H Creatinine 1.2 Est GFR (CKD-EPI)AfAm 81.23 Est GFR (CKD-EPI)NonAf 70.09 POC Glucometer 176 170 Random Glucose 142 H Calcium 9.5 Phosphorus 4.0 Magnesium 2.5 H Total Bilirubin 0.4 AST 14 L ALT 27 Alkaline Phosphatase 84 Total Protein 7.4 Albumin 3.1 L 04/17/20 04/17/20 04/17/20 06:10 06:35 12:18 WBC 7.8 RBC 3.87 L Hgb 11.3 L Hct 34.2 L MCV 88.3 MCH 29.3 MCHC 33.1 RDW 14.6 Plt Count 210 MPV 9.7 Absolute Neuts (auto) 5.1 Neutrophils % 65.8 Lymphocytes % 27.7 Monocytes % 5.3 Eosinophils % 0.5 Basophils % 0.7 Nucleated RBC % 0 Sodium Potassium Chloride Carbon Dioxide Anion Gap BUN Creatinine Est GFR (CKD-EPI)AfAm Est GFR (CKD-EPI)NonAf POC Glucometer 153 125 Random Glucose Calcium Phosphorus Magnesium Total Bilirubin AST ALT Alkaline Phosphatase Total Protein Albumin Active Medications Generic Name Dose Route Start Last Admin Trade Name Freq PRN Reason Stop Dose Admin Acetaminophen 650 mg 04/03/20 00:14 04/06/20 12:51 Tylenol - PO 650 mg Q4H PRN Administration PAIN LEVEL 4 - 6 Ascorbic Acid 500 mg 04/03/20 10:00 04/17/20 09:46 Vitamin C - PO 500 mg DAILY [facility] Administration Cholecalciferol 1,000 unit 04/03/20 10:00 04/17/20 09:46 Vitamin D3 - PO 1,000 unit DAILY [facility] Administration Heparin Sodium (Porcine) 5,000 unit 04/02/20 23:45 04/17/20 06:04 Heparin - SQ 5,000 unit TID [facility] Administration Insulin Aspart 1 vial 04/03/20 07:00 04/17/20 13:48 Novolog Vial Sliding Scale - SQ Not Given ACHS [facility] Protocol Insulin Aspart 12 units 04/17/20 16:30 Novolog Vial SQ TIDAC [facility] Insulin Detemir 15 units 04/12/20 22:00 04/17/20 06:12 Levemir Vial SQ 15 units BID@0700,2200 [facility] Administration Levofloxacin 750 mg 04/15/20 11:00 04/17/20 09:46 Levaquin - PO 750 mg DAILY [facility]IC Administration ASSESSMENT/PLAN: 50M with unknown PMH admitted for sepsis 2/2 to RLE 5th MT OM. #Sepsis 2/2 RLE OM 5th digit with Cellulitis - RLE MRI: 5th digit OM + cellulitis - Wound cx: Polymicrobial, Repeat Blood cx (04/03) NG after 5 days - Started on Levaquin (04/15), completed 2 weeks of Zosyn+Vanc (04/02-04/15) before that, needsa total of 6 weeks of abx - Podiatry consult: patient refusing all surgical intervention- will likely need 6 weeks outpatient abx therapy - Vascular consult: For wound debridement/management of venous ulcers: - Elevate the lower extremity above the level of the heart at all times while at rest - BL compression with JOSELITO wraps once cellulitis has receded (wrap from metacarpal heads to below knee) - Domeboro soaks QD (astringent for pruritus). Apply Lac hydrin daily (for dry scaly skin). Wash LE with warm soapy water daily. - Psych consult: Pt lacks functional capacity to make informed decisions about his care due to severe cognitive impairment/poor judgment - Ethics consult: Can not force care despite not having medical decision making capacity - Will need post hospital facility to accept him and continue abx course. Patient continues to refused wound care/podiatry care. - U Tox: Positive for opiates, performed after receiving Morphine in ED at 1542 on 04/02, pt denies opiate use #Hx of undiagnosed DM - HbA1c 10.2% - Levemir 15 U BID, Novolog TIDAC increased from 10U to12U due to poor glycemic control - Will start Janumet on discharge and refer to PCP/Endocrinology. - Diabetes education provided #Normocytic Anemia - H&H now improving 10.6/31.0 -> 10.8/31.9 -> 10.6/30.9 -> - Likely dilutional, no bleeding - B12/Ferritin/Folate wnl - FOBT (04/06): trace #DVT ppx -Heparin 5k TID, renewed #FEN - DM diet #Dispo - Monitor in M/S Visit type - Emergency Visit Emergency Visit: Yes ED Registration Date: 04/02/20 Care time: The patient presented to the Emergency Department on the above date and was hospitalized for further evaluation of their emergent condition. - New Patient This patient is new to me today: No - Critical Care Critical Care patient: No ATTENDING PHYSICIAN STATEMENT I saw and evaluated the patient. I reviewed the resident's note and discussed the case with the resident. I agree with the resident's findings and plan as documented. SUBJECTIVE: OBJECTIVE: ASSESSMENT AND PLAN:
[2020-04-18] MEDS: INSULIN (NOVOLOG) ASPART 100 UNITS/ML 10ML VIAL SQ SCH ×4 (00:11→16:54)
[2020-04-18] MEDS: HEPARIN NA (PORCINE) 5,000 UNITS/ML 1ML VIAL SQ SCH ×3 (06:49→21:08)
[2020-04-18] MEDS: INSULIN (LEVEMIR) 100 UNITS/ML UNITS SQ SCH ×2 (06:50→21:08)
[2020-04-18] MEDS: INSULIN SLIDING SCALE (NOVOLOG) 1 VIAL SQ SCH ×4 (06:51→21:09)
[2020-04-18 07:54] LABS: BASO % 0.6 % (0-2.0); EOS % 0.7 % (0-4.5); HEMATOCRIT 33.5 % (35.4-49); HEMOGLOBIN 11.6 GM/dL (11.7-16.9); LYMPH % 32.1 % (8-40); MCHC 34.5 g/dl (32.0-35.9); MEAN PLT VOLUME 9.6 fl (7.5-11.1); MONO % 5.2 % (3.8-10.2); NEUT % 61.4 % (42.8-82.8); PLATELET COUNT 203 K/MM3 (134-434); RBC 3.85 M/mm3 (4.00-5.60); RDW 14.4 % (11.9-15.9); WHITE BLOOD COUNT 7.2 K/mm3 (4.0-10.0)
[2020-04-18 08:31] LABS: ALBUMIN 3.2 g/dl (3.4-5.0); BILIRUBIN,TOTAL 0.6 mg/dL (0.2-1); BLOOD UREA NITROGEN 19.4 mg/dL (7-18); CALCIUM 9.4 mg/dL (8.5-10.1); CREATININE 1.2 mg/dL (0.55-1.3); MAGNESIUM 2.5 mg/dL (1.8-2.4); PHOSPHOROUS 4.3 mg/dL (2.5-4.9); TOT PROT 7.6 g/dl (6.4-8.2)
--- NOTE | 2020-04-18 08:35 | PN ---
Progress Note, Physician History of Present Illness: 50 year old undomiciled male brought to ED after passers-by noticed maggots on h is feet admitted with Sepsis secondary to RLE OM 5th toe with Cellulitis of Foot infected/necrotic ulcers and Bacteremia Enterococcus Faecalis & Cdc Group Eo-2. Today: Pt seen and examined at bedside in [facility] Has no active c/o States his legs are improving , Still refusing intervention Explained his new Diabetes, refused to accept Has not yet ambulated Refuses any dressings on it - Current Medication List Current Medications: Active Medications Acetaminophen (Tylenol -) 650 mg PO Q4H PRN PRN Reason: PAIN LEVEL 4 - 6 Last Admin: 04/06/20 12:51 Dose: 650 mg Documented by: Ascorbic Acid (Vitamin C -) 500 mg PO DAILY [facility] Last Admin: 04/17/20 09:46 Dose: 500 mg Documented by: Cholecalciferol (Vitamin D3 -) 1,000 unit PO DAILY [facility] Last Admin: 04/17/20 09:46 Dose: 1,000 unit Documented by: Heparin Sodium (Porcine) (Heparin -) 5,000 unit SQ TID [facility] Last Admin: 04/18/20 06:49 Dose: 5,000 unit Documented by: Insulin Aspart (Novolog Vial Sliding Scale -) 1 vial SQ ACHS [facility]; Protocol Last Admin: 04/18/20 06:51 Dose: 2 unit Documented by: Insulin Aspart (Novolog Vial) 12 units SQ TIDAC [facility] Last Admin: 04/18/20 06:51 Dose: 12 units Documented by: Insulin Detemir (Levemir Vial) 15 units SQ BID@0700,2200 [facility] Last Admin: 04/18/20 06:50 Dose: 15 units Documented by: Levofloxacin (Levaquin -) 750 mg PO DAILY [facility] Last Admin: 04/17/20 09:46 Dose: 750 mg Documented by: - Objective Vital Signs: Vital Signs Temperature 97.6 F 04/18/20 06:00 Pulse Rate 84 04/18/20 06:00 Respiratory Rate 18 04/18/20 06:00 Blood Pressure 138/88 04/18/20 06:00 O2 Sat by Pulse Oximetry (%) 97 04/17/20 21:00 Constitutional: Yes: Well Nourished, No Distress Cardiovascular: Yes: Regular Rate and Rhythm Respiratory: Yes: CTA Bilaterally Extremities: Yes: Other (complete skin breakdown, swelling improved multiple ulcerations serosanguinous drainage) Labs: CBC, BMP 04/18/20 06:30 04/18/20 06:30 INR, PTT INR 1.39 (0.83-1.09) H 04/02/20 16:00 Impression/Plan Impression/Plan: 50 year old undomiciled male brought to ED after passers-by noticed maggots on his feet admitted with Sepsis secondary to RLE OM 5th toe with Cellulitis of Foot infected/necrotic ulcers and Bacteremia Enterococcus Faecalis & Cdc Group Eo-2. Sepsis secondary to RLE OM 5th toe with Cellulitis of Foot infected/necrotic ulcers and Bacteremia Enterococcus Faecalis & Cdc Group Eo-2 Micro: 04/03 BCx x2 NGTD 04/03 WCx Proteus Penneri, Proteus Vulgaris, Enterococcus Faecalis 04/02 BCx x2: Cdc Group Eo-2 and Enterococcus Faecalis MRI - OM R 5th MT; Left LE without OM Pt lacks capacity per notes and requires Surgical intervention per Vasc/Pod Repeat BCx on 04/03 NGTD ID On board switched to Levaquin 750 mg Daily 04/15-TD Zosyn 04/02- 04/15 Needs 6 wk total Abx DMII-Newly Dx HbA1C 10.2 Detemir 15 BID SQ and Novolog 12 units TID ISS Monitor F/S range Will be difficult disposition as pt will need insulin and pt non compliant, undocumented, Supp care: DVT Px: on HSQ 5K TID GI Px- not indicated Diet Diabetic Dispo- needs extensive SW Visit type - Emergency Visit Emergency Visit: Yes ED Registration Date: 04/02/20 Care time: The patient presented to the Emergency Department on the above date and was hospitalized for further evaluation of their emergent condition. - New Patient This patient is new to me today: No - Critical Care Critical Care patient: No - Discharge Referral Referred to [facility] No
--- NOTE | 2020-04-18 10:15 | PN ---
Physical Exam: SUBJECTIVE: Patient seen and examined by the bedside. Resting comfortably in bed. Still refusing any wound care/surgical intervention OBJECTIVE: Vital Signs Period Temp Pulse Resp BP Sys/Perkins Pulse Ox Last 24 Hr 97.6 F-98.2 F 84-111 18-20 133-155/78-88 97 GENERAL: AOx3 HEENT: EUSEBIO, MMM LUNGS: Breath sounds equal, no crackles or wheezes HEART: RRR ABDOMEN: Soft, NT, non distended EXTREMITIES: Extensive venous stasis ulcers LE BL with chronic skin changes. R 5th toe ulcer with serous drainage and necrotic tissue. Dried blood on right lower extremity. SKIN: Warm, dry Laboratory Results - last 24 hr 04/17/20 04/17/20 04/17/20 12:18 16:43 21:57 WBC RBC Hgb Hct MCV MCH MCHC RDW Plt Count MPV Absolute Neuts (auto) Neutrophils % Lymphocytes % Monocytes % Eosinophils % Basophils % Nucleated RBC % Sodium Potassium Chloride Carbon Dioxide Anion Gap BUN Creatinine Est GFR (CKD-EPI)AfAm Est GFR (CKD-EPI)NonAf POC Glucometer 125 182 136 Random Glucose Calcium Phosphorus Magnesium Total Bilirubin AST ALT Alkaline Phosphatase Total Protein Albumin 04/18/20 04/18/20 04/18/20 06:30 06:30 06:48 WBC 7.2 RBC 3.85 L Hgb 11.6 L Hct 33.5 L MCV 87.0 MCH 30.0 MCHC 34.5 RDW 14.4 Plt Count 203 MPV 9.6 Absolute Neuts (auto) 4.4 Neutrophils % 61.4 Lymphocytes % 32.1 Monocytes % 5.2 Eosinophils % 0.7 Basophils % 0.6 Nucleated RBC % 0 Sodium 139 Potassium 4.0 Chloride 106 Carbon Dioxide 23 Anion Gap 9 BUN 19.4 H Creatinine 1.2 Est GFR (CKD-EPI)AfAm 81.23 Est GFR (CKD-EPI)NonAf 70.09 POC Glucometer 155 Random Glucose 141 H Calcium 9.4 Phosphorus 4.3 Magnesium 2.5 H Total Bilirubin 0.6 AST 12 L ALT 28 Alkaline Phosphatase 87 Total Protein 7.6 Albumin 3.2 L Active Medications Generic Name Dose Route Start Last Admin Trade Name Freq PRN Reason Stop Dose Admin Acetaminophen 650 mg 04/03/20 00:14 04/06/20 12:51 Tylenol - PO 650 mg Q4H PRN Administration PAIN LEVEL 4 - 6 Ascorbic Acid 500 mg 04/03/20 10:00 04/17/20 09:46 Vitamin C - PO 500 mg DAILY [facility]IC Administration Cholecalciferol 1,000 unit 04/03/20 10:00 04/17/20 09:46 Vitamin D3 - PO 1,000 unit DAILY [facility] Administration Heparin Sodium (Porcine) 5,000 unit 04/02/20 23:45 04/18/20 06:49 Heparin - SQ 5,000 unit TID [facility] Administration Insulin Aspart 1 vial 04/03/20 07:00 04/18/20 06:51 Novolog Vial Sliding Scale - SQ 2 unit ACHS [facility] Administration Protocol Insulin Aspart 12 units 04/17/20 16:30 04/18/20 06:51 Novolog Vial SQ 12 units TIDAC [facility] Administration Insulin Detemir 15 units 04/12/20 22:00 04/18/20 06:50 Levemir Vial SQ 15 units BID@0700,2200 [facility] Administration Levofloxacin 750 mg 04/15/20 11:00 04/17/20 09:46 Levaquin - PO 750 mg DAILY [facility] Administration ASSESSMENT/PLAN: 50M with unknown PMH admitted for sepsis 2/2 to RLE 5th MT OM. #Sepsis 2/2 RLE OM 5th digit with Cellulitis - RLE MRI: 5th digit OM + cellulitis - Wound cx: Polymicrobial, Repeat Blood cx (04/03) NG after 5 days - Started on Levaquin (04/15), completed 2 weeks of Zosyn+Vanc (04/02-04/15) before that, needsa total of 6 weeks of abx - Podiatry consult: patient refusing all surgical intervention- will likely need 6 weeks outpatient abx therapy - Vascular consult: For wound debridement/management of venous ulcers: - Elevate the lower extremity above the level of the heart at all times while at rest - BL compression with JOSELITO wraps once cellulitis has receded (wrap from metacarpal heads to below knee) - Domeboro soaks QD (astringent for pruritus). Apply Lac hydrin daily (for dry scaly skin). Wash LE with warm soapy water daily. - Psych consult: Pt lacks functional capacity to make informed decisions about his care due to severe cognitive impairment/poor judgment - Ethics consult: Can not force care despite not having medical decision making capacity, will need post hospital facility to continue abx - U Tox: Positive for opiates, performed after receiving Morphine in ED at 1542 on 04/02, pt denies opiate use #Hx of undiagnosed DM - HbA1c 10.2% - Levemir 15 U BID, Novolog TIDAC increased from 10U to12U due to poor glycemic control - Will start Janumet on discharge and refer to PCP/Endocrinology. - Diabetes education provided #Normocytic Anemia - H&H now improving 10.6/31.0 -> 10.8/31.9 -> 10.6/30.9 -> - Likely dilutional, no bleeding - B12/Ferritin/Folate wnl - FOBT (04/06): trace #DVT ppx -Heparin 5k TID, renewed #FEN - DM diet #Dispo - Monitor in M/S Visit type - Emergency Visit Emergency Visit: Yes ED Registration Date: 04/02/20 Care time: The patient presented to the Emergency Department on the above date and was hospitalized for further evaluation of their emergent condition. - New Patient This patient is new to me today: No - Critical Care Critical Care patient: No ATTENDING PHYSICIAN STATEMENT I saw and evaluated the patient. I reviewed the resident's note and discussed the case with the resident. I agree with the resident's findings and plan as documented. SUBJECTIVE: OBJECTIVE: ASSESSMENT AND PLAN:
[2020-04-18] MEDS: ASCORBIC ACID 500 MG TABLET (FP) PO SCH (10:19)
[2020-04-18] MEDS: CHOLECALCIFEROL (VIT D3) 1,000 UNIT (25 MCG) TABLET PO SCH (10:19)
--- NOTE | 2020-04-18 21:36 | PN ---
Progress Note, Physician History of Present Illness: Pt without specific complaints. Afebrile. - Current Medication List Current Medications: Active Medications Acetaminophen (Tylenol -) 650 mg PO Q4H PRN PRN Reason: PAIN LEVEL 4 - 6 Last Admin: 04/06/20 12:51 Dose: 650 mg Documented by: Ascorbic Acid (Vitamin C -) 500 mg PO DAILY [facility] Last Admin: 04/18/20 10:19 Dose: 500 mg Documented by: Cholecalciferol (Vitamin D3 -) 1,000 unit PO DAILY [facility] Last Admin: 04/18/20 10:19 Dose: 1,000 unit Documented by: Heparin Sodium (Porcine) (Heparin -) 5,000 unit SQ TID [facility] Last Admin: 04/18/20 21:08 Dose: 5,000 unit Documented by: Insulin Aspart (Novolog Vial Sliding Scale -) 1 vial SQ ACHS [facility]; Protocol Last Admin: 04/18/20 21:09 Dose: 2 unit Documented by: Insulin Aspart (Novolog Vial) 12 units SQ TIDAC [facility] Last Admin: 04/18/20 16:54 Dose: 12 units Documented by: Insulin Detemir (Levemir Vial) 15 units SQ BID@0700,2200 [facility] Last Admin: 04/18/20 21:08 Dose: 15 units Documented by: Levofloxacin (Levaquin -) 750 mg PO DAILY [facility] Last Admin: 04/18/20 10:19 Dose: 750 mg Documented by: - Objective Vital Signs: Vital Signs Temperature 98.3 F 04/18/20 14:30 Pulse Rate 112 H 04/18/20 14:30 Respiratory Rate 20 04/18/20 14:30 Blood Pressure 119/76 04/18/20 14:30 O2 Sat by Pulse Oximetry (%) 97 04/17/20 21:00 Constitutional: Yes: No Distress Cardiovascular: Yes: Regular Rate and Rhythm Respiratory: Yes: Regular Gastrointestinal: Yes: Normal Bowel Sounds, Soft Wound/Incision: Yes: Other (b/l LE erythema/edema improving, serosanguinous discharge) Labs: CBC, BMP 04/18/20 06:30 04/18/20 06:30 INR, PTT INR 1.39 (0.83-1.09) H 04/02/20 16:00 Laboratory Last Values WBC 7.2 K/mm3 (4.0-10.0) 04/18/20 06:30 RBC 3.85 M/mm3 (4.00-5.60) L 04/18/20 06:30 Hgb 11.6 GM/dL (11.7-16.9) L 04/18/20 06:30 Hct 33.5 % (35.4-49) L 04/18/20 06:30 MCV 87.0 fl (80-96) 04/18/20 06:30 MCH 30.0 pg (25.7-33.7) 04/18/20 06:30 MCHC 34.5 g/dl (32.0-35.9) 04/18/20 06:30 RDW 14.4 % (11.9-15.9) 04/18/20 06:30 Plt Count 203 K/MM3 (134-434) 04/18/20 06:30 MPV 9.6 fl (7.5-11.1) 04/18/20 06:30 Absolute Neuts (auto) 4.4 K/mm3 (1.5-8.0) 04/18/20 06:30 Neutrophils % 61.4 % (42.8-82.8) 04/18/20 06:30 Neutrophils % (Manual) 54.9 % (42.8-82.8) 04/05/20 07:27 Band Neutrophils % 1.0 % 04/05/20 07:27 Lymphocytes % 32.1 % (8-40) 04/18/20 06:30 Lymphocytes % (Manual) 35.3 % (8-40) D 04/05/20 07:27 Monocytes % 5.2 % (3.8-10.2) 04/18/20 06:30 Monocytes % (Manual) 9 % (3.8-10.2) 04/05/20 07:27 Eosinophils % 0.7 % (0-4.5) 04/18/20 06:30 Eosinophils % (Manual) 0.0 % (0-4.5) D 04/05/20 07:27 Basophils % 0.6 % (0-2.0) 04/18/20 06:30 Basophils % (Manual) 0.0 % (0-2.0) 04/05/20 07:27 Myelocytes % (Man) 0 % (0-2) D 04/05/20 07:27 Promyelocytes % (Man) 0 % (0-2) 04/05/20 07:27 Blast Cells % (Manual) 0 % (0-0) 04/05/20 07:27 Nucleated RBC % 0 % (0-0) 04/18/20 06:30 Metamyelocytes 0 % (0-2) D 04/05/20 07:27 Hypochromia 0 04/05/20 07:27 Platelet Estimate Normal 04/05/20 07:27 Polychromasia 1+ 04/05/20 07:27 Poikilocytosis 0 04/05/20 07:27 Anisocytosis 1+ 04/05/20 07:27 Microcytosis 1+ 04/05/20 07:27 Macrocytosis 0 04/05/20 07:27 ESR 95 mm/hr (0-20) H 04/04/20 08:38 PT with INR 16.40 SEC (9.7-13.0) H 04/02/20 16:00 INR 1.39 (0.83-1.09) H 04/02/20 16:00 PTT (Actin FS) 35.0 SECONDS (25.2-36.5) 04/02/20 16:00 Sodium 139 mmol/L (136-145) 04/18/20 06:30 Potassium 4.0 mmol/L (3.5-5.1) 04/18/20 06:30 Chloride 106 mmol/L (98-107) 04/18/20 06:30 Carbon Dioxide 23 mmol/L (21-32) 04/18/20 06:30 Anion Gap 9 MMOL/L (8-16) 04/18/20 06:30 BUN 19.4 mg/dL (7-18) H 04/18/20 06:30 Creatinine 1.2 mg/dL (0.55-1.3) 04/18/20 06:30 Est GFR (CKD-EPI)AfAm 81.23 04/18/20 06:30 Est GFR (CKD-EPI)NonAf 70.09 04/18/20 06:30 POC Glucometer 159 UNITS (80-120) 04/18/20 20:36 Random Glucose 141 mg/dL (74-106) H 04/18/20 06:30 Hemoglobin A1c % 10.2 % (4.2-6.3) H 04/03/20 06:15 Lactic Acid 2.1 mmol/L (0.4-2.0) H 04/02/20 20:10 Calcium 9.4 mg/dL (8.5-10.1) 04/18/20 06:30 Phosphorus 4.3 mg/dL (2.5-4.9) 04/18/20 06:30 Magnesium 2.5 mg/dL (1.8-2.4) H 04/18/20 06:30 Iron 32 ug/dL (50-175) L 04/06/20 07:30 TIBC 176 ug/dL (250-450) L 04/06/20 07:30 Iron Saturation 18 % (17.5-39) 04/06/20 07:30 Unsaturated IBC 144 ug/dL (200-275) L 04/06/20 07:30 Ferritin 438.8 ng/ml (8-388) H 04/04/20 12:15 Total Bilirubin 0.6 mg/dL (0.2-1) 04/18/20 06:30 AST 12 U/L (15-37) L 04/18/20 06:30 ALT 28 U/L (13-61) 04/18/20 06:30 Alkaline Phosphatase 87 U/L (45-117) 04/18/20 06:30 Creatine Kinase 115 U/L (26-308) 04/02/20 16:00 Troponin I < 0.02 ng/ml (0.00-0.05) 04/02/20 16:00 C-Reactive Protein 10.6 MG/DL (0.00-0.3) H 04/04/20 08:38 Total Protein 7.6 g/dl (6.4-8.2) 04/18/20 06:30 Albumin 3.2 g/dl (3.4-5.0) L 04/18/20 06:30 Vitamin B12 748 pg/ml (193-986) 04/04/20 12:15 Serum Folate 7 ng/mL (3.1-17.5) 04/04/20 12:15 TSH 0.87 uIU/ml (0.358-3.74) D 04/03/20 06:15 Urine Color Dk yellow 04/02/20 19:00 Urine Appearance Clear 04/02/20 19:00 Urine pH 6.0 (5.0-8.0) 04/02/20 19:00 Ur Specific [place] 1.039 (1.010-1.035) H 04/02/20 19:00 Urine Protein Trace (NEGATIVE) 04/02/20 19:00 Urine Glucose (UA) 3+ (NEGATIVE) H 04/02/20 19:00 Urine Ketones 1+ (NEGATIVE) H 04/02/20 19:00 Urine Blood Negative (NEGATIVE) 04/02/20 19:00 Urine Nitrite Negative (NEGATIVE) 04/02/20 19:00 Urine Bilirubin Negative (NEGATIVE) 04/02/20 19:00 Urine Urobilinogen 1.0 mg/dL (0.2-1.0) 04/02/20 19:00 Ur Leukocyte Esterase Negative (NEGATIVE) 04/02/20 19:00 Stool Occult Blood Negative (NEGATIVE) 04/06/20 12:57 Vancomycin Pre-Dose 15.3 ug/ml (5-10) H 04/07/20 20:15 Opiates Screen Positive ng/ml (JERSTR=009) A* 04/03/20 01:35 Methadone Screen Negative ng/ml (PIMXWB=674) 04/03/20 01:35 Barbiturate Screen Negative ng/ml (CPJQLS=884) 04/03/20 01:35 Phencyclidine Screen Negative ng/ml (CUTOFF=25) 04/03/20 01:35 Ur Amphetamines Screen Negative ng/ml (HAZTDU=680) 04/03/20 01:35 MDMA (Ecstasy) Screen Negative ng/ml (MMUOVZ=257) 04/03/20 01:35 Benzodiazepines Screen Negative ng/ml (HPCKGX=973) 04/03/20 01:35 Cocaine Screen Negative ng/ml (OGORDV=607) 04/03/20 01:35 U Marijuana (THC) Screen Negative ng/ml (CUTOFF=50) 04/03/20 01:35 COVID-19 (DANAE) Not detected (Not Detected) 04/02/20 17:50 Blood Type A POSITIVE 04/02/20 16:00 Antibody Screen Negative 04/02/20 16:00 Microbiology 04/03/20 12:15 Blood - Peripheral Venous Blood Culture - Final NO GROWTH AFTER 5 DAYS INCUBATION 04/03/20 12:00 Blood - Peripheral Venous Blood Culture - Final NO GROWTH AFTER 5 DAYS INCUBATION 04/02/20 16:00 Blood - Peripheral Venous Blood Culture - Final Cdc Group Eo-2 Gram Positive Cocci 04/02/20 16:00 Blood - Peripheral Venous Blood Culture - Final Enterococcus Faecalis Gram Positive Bacillus 04/03/20 01:35 Leg - Right Lower Gram Stain - Final 04/03/20 01:35 Leg - Right Lower Wound Culture - Final Proteus Penneri Proteus Vulgaris Enterococcus Faecalis 04/02/20 19:00 Urine - Urine Clean Catch Urine Culture - Final Normal Urogenital Gin Problem List - Problems (1) Homeless single person Code(s): Z59.0 - HOMELESSNESS (2) Hyperglycemia Code(s): R73.9 - HYPERGLYCEMIA, UNSPECIFIED (3) Lactic acid acidosis Code(s): E87.2 - ACIDOSIS (4) Sepsis Code(s): A41.9 - SEPSIS, UNSPECIFIED ORGANISM Qualifiers: Sepsis type: sepsis due to unspecified organism Sepsis acute organ dysfunction status: unspecified Qualified Code(s): A41.9 - Sepsis, unspecified organism (5) Trench foot Code(s): T69.029A - IMMERSION FOOT, UNSPECIFIED FOOT, INITIAL ENCOUNTER Qualifiers: Encounter type: initial encounter Laterality: unspecified laterality Qualified Code(s): T69.029A - Immersion foot, unspecified foot, initial encounter Assessment/Plan 50 y.o. undomiciled male with no known PMH presented with RLE swelling/worsening RLE wounds with drainage Sepsis Bacteremia RLE cellulitis with infected LE ulcers Rt 5th proximal phalanx OM Hyperglycemia/elevated HgAIC - DM Homeless -- continue Levaquin -- repeat blood cultures negative -- Podiatry following, pt refused 5th toe amputation -- wound care
[2020-04-19] MEDS: HEPARIN NA (PORCINE) 5,000 UNITS/ML 1ML VIAL SQ SCH ×3 (05:59→21:37)
[2020-04-19] MEDS: INSULIN (NOVOLOG) ASPART 100 UNITS/ML 10ML VIAL SQ SCH ×3 (06:00→16:45)
[2020-04-19] MEDS: INSULIN (LEVEMIR) 100 UNITS/ML UNITS SQ SCH ×2 (06:01→21:36)
[2020-04-19] MEDS: INSULIN SLIDING SCALE (NOVOLOG) 1 VIAL SQ SCH ×4 (06:03→21:37)
[2020-04-19 06:38] LABS: BASO % 0.6 % (0-2.0); EOS % 0.9 % (0-4.5); HEMATOCRIT 35.8 % (35.4-49); LYMPH % 31.8 % (8-40); MCH 29.3 pg (25.7-33.7); MCHC 33.4 g/dl (32.0-35.9); MEAN CELL VOLUME 87.5 fl (80-96); MEAN PLT VOLUME 9.6 fl (7.5-11.1); MONO % 5.5 % (3.8-10.2); NEUT % 61.2 % (42.8-82.8); PLATELET COUNT 200 K/MM3 (134-434); RBC 4.09 M/mm3 (4.00-5.60); RDW 15.2 % (11.9-15.9); WHITE BLOOD COUNT 7.2 K/mm3 (4.0-10.0)
[2020-04-19 07:07] LABS: ALBUMIN 3.3 g/dl (3.4-5.0); BILIRUBIN,TOTAL 0.5 mg/dL (0.2-1); BLOOD UREA NITROGEN 21.2 mg/dL (7-18); CALCIUM 9.7 mg/dL (8.5-10.1); CREATININE 1.4 mg/dL (0.55-1.3); MAGNESIUM 2.4 mg/dL (1.8-2.4); PHOSPHOROUS 4.2 mg/dL (2.5-4.9); POTASSIUM 4.6 mmol/L (3.5-5.1); TOT PROT 7.9 g/dl (6.4-8.2)
[2020-04-19] MEDS ORDERED: PT OWN MED DRAWER 7, Y5N ONE (09:55)
[2020-04-19] MEDS: ASCORBIC ACID 500 MG TABLET (FP) PO SCH (10:00)
[2020-04-19] MEDS: CHOLECALCIFEROL (VIT D3) 1,000 UNIT (25 MCG) TABLET PO SCH (10:01)
--- NOTE | 2020-04-19 13:05 | PN ---
Progress Note, Physician History of Present Illness: 50 year old undomiciled male brought to ED after passers-by noticed maggots on h is feet admitted with Sepsis secondary to RLE OM 5th toe with Cellulitis of Foot infected/necrotic ulcers and Bacteremia Enterococcus Faecalis & Cdc Group Eo-2 planning to complete Levaquin PO for total of 6 wk of abx, dispo complicated with undocumented, and lack of participation of patient . Today: Pt seen and examined at bedside in [facility] Has no active c/o States his legs are improving , Still refusing intervention Explained his new Diabetes, refused to accept , still does not want surgery Refuses to give SW any documents to assist in placement Has not yet ambulated Refuses any dressings on it - Current Medication List Current Medications: Active Medications Acetaminophen (Tylenol -) 650 mg PO Q4H PRN PRN Reason: PAIN LEVEL 4 - 6 Last Admin: 04/06/20 12:51 Dose: 650 mg Documented by: Ascorbic Acid (Vitamin C -) 500 mg PO DAILY [facility] Last Admin: 04/19/20 10:00 Dose: 500 mg Documented by: Cholecalciferol (Vitamin D3 -) 1,000 unit PO DAILY [facility] Last Admin: 04/19/20 10:01 Dose: 1,000 unit Documented by: Heparin Sodium (Porcine) (Heparin -) 5,000 unit SQ TID [facility] Last Admin: 04/19/20 05:59 Dose: 5,000 unit Documented by: Insulin Aspart (Novolog Vial Sliding Scale -) 1 vial SQ ACHS [facility]; Protocol Last Admin: 04/19/20 11:33 Dose: Not Given Documented by: Insulin Aspart (Novolog Vial) 12 units SQ TIDAC [facility] Last Admin: 04/19/20 11:34 Dose: 12 units Documented by: Insulin Detemir (Levemir Vial) 15 units SQ BID@0700,2200 [facility] Last Admin: 04/19/20 06:01 Dose: 15 units Documented by: Levofloxacin (Levaquin -) 750 mg PO DAILY [facility] Last Admin: 04/19/20 10:00 Dose: 750 mg Documented by: - Objective Vital Signs: Vital Signs Temperature 98.2 F 04/19/20 09:20 Pulse Rate 90 04/19/20 09:20 Respiratory Rate 20 04/19/20 09:20 Blood Pressure 130/76 04/19/20 09:20 O2 Sat by Pulse Oximetry (%) 96 04/18/20 21:00 Constitutional: Yes: Well Nourished, No Distress Cardiovascular: Yes: Regular Rate and Rhythm Respiratory: Yes: CTA Bilaterally Gastrointestinal: Yes: Normal Bowel Sounds, Soft, Abdomen, Obese Extremities: Yes: Other (complete skin breakdown of lower extremities, and skin discoloration darkening, multiple ulceration with serosanguinous drainage) Labs: CBC, BMP 04/19/20 05:43 04/19/20 05:43 INR, PTT INR 1.39 (0.83-1.09) H 04/02/20 16:00 Impression/Plan Impression/Plan: 50 year old undomiciled male brought to ED after passers-by noticed maggots on his feet admitted with Sepsis secondary to RLE OM 5th toe with Cellulitis of Foot infected/necrotic ulcers and Bacteremia Enterococcus Faecalis & Cdc Group Eo-2 planning to complete Levaquin PO for total of 6 wk of abx, dispo complicated with undocumented, and lack of participation of patient . Sepsis secondary to RLE OM 5th toe with Cellulitis of Foot infected/necrotic ulcers and Bacteremia Enterococcus Faecalis & Cdc Group Eo-2 Micro: 04/03 BCx x2 NGTD 04/03 WCx Proteus Penneri, Proteus Vulgaris, Enterococcus Faecalis 04/02 BCx x2: Cdc Group Eo-2 and Enterococcus Faecalis MRI - OM R 5th MT; Left LE without OM Pt lacks capacity per notes and requires Surgical intervention per Vasc/Pod Repeat BCx on 04/03 NGTD ID On board switched to Levaquin 750 mg Daily 04/15-TD Zosyn 04/02- 04/15 Needs 6 wk total Abx DMII-Newly Dx HbA1C 10.2 Detemir 15 BID SQ and Novolog 12 units TID ISS Monitor F/S range Will be difficult disposition as pt will need insulin and pt non compliant, undocumented, Supp care: DVT Px: on HSQ 5K TID GI Px- not indicated Diet Diabetic Dispo- needs extensive SW Visit type - Emergency Visit Emergency Visit: Yes ED Registration Date: 04/02/20 Care time: The patient presented to the Emergency Department on the above date and was hospitalized for further evaluation of their emergent condition. - New Patient This patient is new to me today: No - Critical Care Critical Care patient: No - Discharge Referral Referred to [facility] No
--- NOTE | 2020-04-19 17:04 | PN ---
Physical Exam: SUBJECTIVE: Patient seen and examined by the bedside. Resting comfortably in bed. Still refusing any wound care/surgical intervention OBJECTIVE: Vital Signs Period Temp Pulse Resp BP Sys/Perkins Pulse Ox Last 24 Hr 97.4 F-98.4 F 90-122 18-20 124-140/68-82 96 GENERAL: AOx3 HEENT: EUSEBIO, MMM LUNGS: Breath sounds equal, no crackles or wheezes HEART: RRR ABDOMEN: Soft, NT, non distended EXTREMITIES: Extensive venous stasis ulcers LE BL with chronic skin changes. R 5th toe ulcer with serous drainage and necrotic tissue. Dried blood on right lower extremity. SKIN: Warm, dry Laboratory Results - last 24 hr 04/18/20 04/19/20 04/19/20 20:36 05:43 05:43 WBC 7.2 RBC 4.09 Hgb 12.0 Hct 35.8 MCV 87.5 MCH 29.3 MCHC 33.4 RDW 15.2 Plt Count 200 MPV 9.6 Absolute Neuts (auto) 4.4 Neutrophils % 61.2 Lymphocytes % 31.8 Monocytes % 5.5 Eosinophils % 0.9 Basophils % 0.6 Nucleated RBC % 0 Sodium 140 Potassium 4.6 Chloride 106 Carbon Dioxide 27 Anion Gap 7 L BUN 21.2 H Creatinine 1.4 H Est GFR (CKD-EPI)AfAm 67.42 Est GFR (CKD-EPI)NonAf 58.17 POC Glucometer 159 Random Glucose 139 H Calcium 9.7 Phosphorus 4.2 Magnesium 2.4 Total Bilirubin 0.5 AST 11 L ALT 27 Alkaline Phosphatase 94 Total Protein 7.9 Albumin 3.3 L 04/19/20 04/19/20 04/19/20 05:58 11:32 16:42 WBC RBC Hgb Hct MCV MCH MCHC RDW Plt Count MPV Absolute Neuts (auto) Neutrophils % Lymphocytes % Monocytes % Eosinophils % Basophils % Nucleated RBC % Sodium Potassium Chloride Carbon Dioxide Anion Gap BUN Creatinine Est GFR (CKD-EPI)AfAm Est GFR (CKD-EPI)NonAf POC Glucometer 141 140 153 Random Glucose Calcium Phosphorus Magnesium Total Bilirubin AST ALT Alkaline Phosphatase Total Protein Albumin Active Medications Generic Name Dose Route Start Last Admin Trade Name Freq PRN Reason Stop Dose Admin Acetaminophen 650 mg 04/03/20 00:14 04/06/20 12:51 Tylenol - PO 650 mg Q4H PRN Administration PAIN LEVEL 4 - 6 Ascorbic Acid 500 mg 04/03/20 10:00 04/19/20 10:00 Vitamin C - PO 500 mg DAILY [facility] Administration Cholecalciferol 1,000 unit 04/03/20 10:00 04/19/20 10:01 Vitamin D3 - PO 1,000 unit DAILY [facility] Administration Heparin Sodium (Porcine) 5,000 unit 04/02/20 23:45 04/19/20 13:46 Heparin - SQ 5,000 unit TID [facility] Administration Insulin Aspart 1 vial 04/03/20 07:00 04/19/20 16:44 Novolog Vial Sliding Scale - SQ 2 unit ACHS [facility] Administration Protocol Insulin Aspart 12 units 04/17/20 16:30 04/19/20 16:45 Novolog Vial SQ 12 units TIDAC [facility] Administration Insulin Detemir 15 units 04/12/20 22:00 04/19/20 06:01 Levemir Vial SQ 15 units BID@0700,2200 [facility] Administration Levofloxacin 750 mg 04/15/20 11:00 04/19/20 10:00 Levaquin - PO 750 mg DAILY [facility] Administration ASSESSMENT/PLAN: 50M with unknown PMH admitted for sepsis 2/2 to RLE 5th MT OM. #Sepsis 2/2 RLE OM 5th digit with Cellulitis - RLE MRI: 5th digit OM + cellulitis - Wound cx: Polymicrobial, Repeat Blood cx (04/03) NG after 5 days - Started on Levaquin (04/15), completed 2 weeks of Zosyn+Vanc (04/02-04/15) before that, needsa total of 6 weeks of abx - Podiatry consult: patient refusing all surgical intervention- will likely need 6 weeks outpatient abx therapy - Vascular consult: For wound debridement/management of venous ulcers: - Elevate the lower extremity above the level of the heart at all times while at rest - BL compression with JOSELITO wraps once cellulitis has receded (wrap from metacarpal heads to below knee) - Domeboro soaks QD (astringent for pruritus). Apply Lac hydrin daily (for dry scaly skin). Wash LE with warm soapy water daily. - Psych consult: Pt lacks functional capacity to make informed decisions about his care due to severe cognitive impairment/poor judgment - Ethics consult: Can not force care despite not having medical decision making capacity, will need post hospital facility to continue abx - U Tox: Positive for opiates, performed after receiving Morphine in ED at 1542 on 04/02, pt denies opiate use #Hx of undiagnosed DM - HbA1c 10.2% - Levemir 15 U BID, Novolog TIDAC increased from 10U to12U due to poor glycemic control - Will start Janumet on discharge and refer to PCP/Endocrinology. - Diabetes education provided #Normocytic Anemia - H&H now improving 10.6/31.0 -> 10.8/31.9 -> 10.6/30.9 -> - Likely dilutional, no bleeding - B12/Ferritin/Folate wnl - FOBT (04/06): trace #DVT ppx -Heparin 5k TID, renewed #FEN - DM diet #Dispo - Monitor in M/S Visit type - Emergency Visit Emergency Visit: Yes ED Registration Date: 04/02/20 Care time: The patient presented to the Emergency Department on the above date and was hospitalized for further evaluation of their emergent condition. - New Patient This patient is new to me today: No - Critical Care Critical Care patient: No ATTENDING PHYSICIAN STATEMENT I saw and evaluated the patient. I reviewed the resident's note and discussed the case with the resident. I agree with the resident's findings and plan as documented. SUBJECTIVE: OBJECTIVE: ASSESSMENT AND PLAN:
[2020-04-20] MEDS: INSULIN SLIDING SCALE (NOVOLOG) 1 VIAL SQ SCH ×4 (06:12→21:17)
[2020-04-20] MEDS: INSULIN (NOVOLOG) ASPART 100 UNITS/ML 10ML VIAL SQ SCH ×3 (06:14→17:19)
[2020-04-20] MEDS: HEPARIN NA (PORCINE) 5,000 UNITS/ML 1ML VIAL SQ SCH ×3 (06:15→21:17)
[2020-04-20] MEDS: INSULIN (LEVEMIR) 100 UNITS/ML UNITS SQ SCH ×2 (06:15→21:16)
[2020-04-20 07:40] LABS: BASO % 0.7 % (0-2.0); EOS % 0.5 % (0-4.5); HEMATOCRIT 34.9 % (35.4-49); HEMOGLOBIN 11.6 GM/dL (11.7-16.9); LYMPH % 31.5 % (8-40); MCHC 33.1 g/dl (32.0-35.9); MEAN CELL VOLUME 87.7 fl (80-96); MEAN PLT VOLUME 9.4 fl (7.5-11.1); MONO % 5.5 % (3.8-10.2); NEUT % 61.8 % (42.8-82.8); PLATELET COUNT 178 K/MM3 (134-434); RBC 3.98 M/mm3 (4.00-5.60); RDW 15.6 % (11.9-15.9); WHITE BLOOD COUNT 6.5 K/mm3 (4.0-10.0)
[2020-04-20 08:04] LABS: ALBUMIN 3.2 g/dl (3.4-5.0); BILIRUBIN,TOTAL 0.5 mg/dL (0.2-1); BLOOD UREA NITROGEN 20.9 mg/dL (7-18); CALCIUM 9.4 mg/dL (8.5-10.1); CREATININE 1.2 mg/dL (0.55-1.3); MAGNESIUM 2.4 mg/dL (1.8-2.4); PHOSPHOROUS 3.8 mg/dL (2.5-4.9); POTASSIUM 3.7 mmol/L (3.5-5.1); TOT PROT 7.5 g/dl (6.4-8.2)
[2020-04-20] MEDS: ASCORBIC ACID 500 MG TABLET (FP) PO SCH (09:43)
[2020-04-20] MEDS: CHOLECALCIFEROL (VIT D3) 1,000 UNIT (25 MCG) TABLET PO SCH (09:43)
--- NOTE | 2020-04-20 12:24 | PN ---
Physical Exam: SUBJECTIVE: Patient seen and examined by the bedside. Resting comfortably in bed. Still refusing any wound care/surgical intervention, endorses pain in R leg OBJECTIVE: Vital Signs Period Temp Pulse Resp BP Sys/Perkins Pulse Ox Last 24 Hr 97.7 F-98.4 F 92-122 20-20 118-140/68-80 96 GENERAL: AOx3 HEENT: EUSEBIO, MMM LUNGS: Breath sounds equal, no crackles or wheezes HEART: RRR ABDOMEN: Soft, NT, non distended EXTREMITIES: Extensive venous stasis ulcers LE BL with chronic skin changes. R 5th toe ulcer with serous drainage and necrotic tissue. Dried blood on right lower extremity. SKIN: Warm, dry Laboratory Results - last 24 hr 04/19/20 04/19/20 04/20/20 16:42 21:32 06:00 WBC 6.5 RBC 3.98 L Hgb 11.6 L Hct 34.9 L MCV 87.7 MCH 29.0 MCHC 33.1 RDW 15.6 Plt Count 178 MPV 9.4 Absolute Neuts (auto) 4.0 Neutrophils % 61.8 Lymphocytes % 31.5 Monocytes % 5.5 Eosinophils % 0.5 Basophils % 0.7 Nucleated RBC % 0 Sodium Potassium Chloride Carbon Dioxide Anion Gap BUN Creatinine Est GFR (CKD-EPI)AfAm Est GFR (CKD-EPI)NonAf POC Glucometer 153 159 Random Glucose Calcium Phosphorus Magnesium Total Bilirubin AST ALT Alkaline Phosphatase Total Protein Albumin 04/20/20 04/20/20 06:00 06:10 WBC RBC Hgb Hct MCV MCH MCHC RDW Plt Count MPV Absolute Neuts (auto) Neutrophils % Lymphocytes % Monocytes % Eosinophils % Basophils % Nucleated RBC % Sodium 141 Potassium 3.7 Chloride 110 H Carbon Dioxide 25 Anion Gap 6 L BUN 20.9 H Creatinine 1.2 Est GFR (CKD-EPI)AfAm 81.23 Est GFR (CKD-EPI)NonAf 70.09 POC Glucometer 144 Random Glucose 131 H Calcium 9.4 Phosphorus 3.8 Magnesium 2.4 Total Bilirubin 0.5 AST 11 L ALT 25 Alkaline Phosphatase 85 Total Protein 7.5 Albumin 3.2 L Active Medications Generic Name Dose Route Start Last Admin Trade Name Freq PRN Reason Stop Dose Admin Acetaminophen 650 mg 04/03/20 00:14 04/06/20 12:51 Tylenol - PO 650 mg Q4H PRN Administration PAIN LEVEL 4 - 6 Ascorbic Acid 500 mg 04/03/20 10:00 04/20/20 09:43 Vitamin C - PO 500 mg DAILY [facility] Administration Cholecalciferol 1,000 unit 04/03/20 10:00 04/20/20 09:43 Vitamin D3 - PO 1,000 unit DAILY [facility] Administration Heparin Sodium (Porcine) 5,000 unit 04/02/20 23:45 04/20/20 06:15 Heparin - SQ 5,000 unit TID [facility] Administration Insulin Aspart 1 vial 04/03/20 07:00 04/20/20 06:12 Novolog Vial Sliding Scale - SQ Not Given ACHS [facility] Protocol Insulin Aspart 12 units 04/17/20 16:30 04/20/20 06:14 Novolog Vial SQ 12 units TIDAC [facility] Administration Insulin Detemir 15 units 04/12/20 22:00 04/20/20 06:15 Levemir Vial SQ 15 units BID@0700,2200 [facility] Administration Levofloxacin 750 mg 04/15/20 11:00 04/20/20 09:43 Levaquin - PO 750 mg DAILY [facility] Administration ASSESSMENT/PLAN: 50M with unknown PMH admitted for sepsis 2/2 to RLE 5th MT OM. #Sepsis 2/2 RLE OM 5th digit with Cellulitis - RLE MRI: 5th digit OM + cellulitis - Wound cx: Polymicrobial, Repeat Blood cx (04/03) NG after 5 days - Started on Levaquin (04/15), completed 2 weeks of Zosyn+Vanc (04/02-04/15) before that, needsa total of 6 weeks of abx - Podiatry consult: patient refusing all surgical intervention- will likely need 6 weeks outpatient abx therapy - Vascular consult: For wound debridement/management of venous ulcers: - Elevate the lower extremity above the level of the heart at all times while at rest - BL compression with JOSELITO wraps once cellulitis has receded (wrap from metacarpal heads to below knee) - Domeboro soaks QD (astringent for pruritus). Apply Lac hydrin daily (for dry scaly skin). Wash LE with warm soapy water daily. - Psych consult: Pt lacks functional capacity to make informed decisions about his care due to severe cognitive impairment/poor judgment - Ethics consult: Can not force care despite not having medical decision making capacity, will need post hospital facility to continue abx - U Tox: Positive for opiates, performed after receiving Morphine in ED at 1542 on 04/02, pt denies opiate use #Hx of undiagnosed DM - HbA1c 10.2% - Levemir 15 U BID, Novolog TIDAC increased from 10U to12U due to poor glycemic control - Will start Janumet on discharge and refer to PCP/Endocrinology. - Diabetes education provided #Normocytic Anemia - H&H now improving 10.6/31.0 -> 10.8/31.9 -> 10.6/30.9 -> - Likely dilutional, no bleeding - B12/Ferritin/Folate wnl - FOBT (04/06): trace #DVT ppx -Heparin 5k TID #FEN - DM diet #Dispo - DC complicated by several factors. Pt is undomiciled, and an undocumented resident, provides several DOBs (date of ), and refuses to work with SW for nursing home placement. Furthermore, with an HbA1c of 10.5, he will require insulin, which necessitates subsequent placement somewhere he can store/administer insulin. - Medically pt is on PO abx and since he is refusing surgical/wound care intervention as well as PT for leg wound, does not need further inpatient medical management. Visit type - Emergency Visit Emergency Visit: No - New Patient This patient is new to me today: No - Critical Care Critical Care patient: No ATTENDING PHYSICIAN STATEMENT I saw and evaluated the patient. I reviewed the resident's note and discussed the case with the resident. I agree with the resident's findings and plan as documented. SUBJECTIVE: OBJECTIVE: ASSESSMENT AND PLAN:
--- NOTE | 2020-04-20 13:33 | PN ---
Teaching Attending Note Name of Resident: Usman Hoang ATTENDING PHYSICIAN STATEMENT I saw and evaluated the patient. I reviewed the resident's note and discussed the case with the resident. I agree with the resident's findings and plan as documented. SUBJECTIVE: Seen and examined at bedside. Condition unchanged OBJECTIVE Last Vital Signs Temp Pulse Resp BP Pulse Ox 97.8 F 91 H 20 127/73 98 04/20/20 10:00 04/20/20 10:00 04/20/20 10:00 04/20/20 10:00 04/20/20 09:00 PE: per resident note Labs/Imaging: reviewed ASSESSMENT AND PLAN: 50 year old undomiciled male brought to ED after passers-by noticed maggots on his feet. Reports RLE pain/tenderness. CT RLE - suspicion of OM for 5th toe on right foot. #Sepsis secondary to RLE OM 5th toe with Cellulitis of Foot, infected ulcers with necrotic tissue (maggots) and Bacteremia Leukocytosis, tachycardia improved. MRI - OM R 5th MT -Vascular surgery and podiatry consulted: pt currently refusing surgical intervention -Cultures polymicrobial -on levofloxacin # DM 2 - A1c 10.2 Homeless, does not follow with PCP -levemir 15U BID -Lispro 12U TIDAC Continue sliding scale DVT Px - Heparin SQ Dispo:Patient does not have capacity to make medical decisions. Is refusing care of his wounds. Per ethics we cannot force him to either debride his wounds or amputate digit. Pt has no insurance and is likely undocumented. NOTE: Positive opiate test on admission was taken AFTER he received morphine in the ED. There is NO confirmed history of opiate abuse.
[2020-04-20] MEDS ORDERED: INSULIN (NOVOLOG) ASPART 100 UNITS/ML 10ML VIAL ONE (21:00)
[2020-04-21] MEDS: HEPARIN NA (PORCINE) 5,000 UNITS/ML 1ML VIAL SQ SCH ×3 (06:29→21:19)
[2020-04-21] MEDS: INSULIN (LEVEMIR) 100 UNITS/ML UNITS SQ SCH ×2 (06:29→21:19)
[2020-04-21] MEDS: INSULIN SLIDING SCALE (NOVOLOG) 1 VIAL SQ SCH ×5 (06:30→21:19)
[2020-04-21] MEDS: INSULIN (NOVOLOG) ASPART 100 UNITS/ML 10ML VIAL SQ SCH ×3 (06:30→17:39)
[2020-04-21] MEDS ORDERED: PT OWN MED DRAWER 7, Y5N ONE (06:38)
[2020-04-21] MEDS ORDERED: INSULIN (LEVEMIR) 100 UNITS/ML UNITS SQ ONE (06:38)
[2020-04-21 07:40] LABS: BASO % 0.5 % (0-2.0); EOS % 0.8 % (0-4.5); HEMOGLOBIN 11.4 GM/dL (11.7-16.9); LYMPH % 34.8 % (8-40); MCH 29.7 pg (25.7-33.7); MCHC 33.6 g/dl (32.0-35.9); MEAN CELL VOLUME 88.2 fl (80-96); MEAN PLT VOLUME 9.9 fl (7.5-11.1); MONO % 7.1 % (3.8-10.2); NEUT % 56.8 % (42.8-82.8); PLATELET COUNT 171 K/MM3 (134-434); RBC 3.86 M/mm3 (4.00-5.60); RDW 15.3 % (11.9-15.9); WHITE BLOOD COUNT 6.7 K/mm3 (4.0-10.0)
[2020-04-21 08:07] LABS: ALBUMIN 3.1 g/dl (3.4-5.0); BILIRUBIN,TOTAL 0.8 mg/dL (0.2-1); BLOOD UREA NITROGEN 17.3 mg/dL (7-18); CALCIUM 9.2 mg/dL (8.5-10.1); CREATININE 1.1 mg/dL (0.55-1.3); MAGNESIUM 2.2 mg/dL (1.8-2.4); PHOSPHOROUS 4.4 mg/dL (2.5-4.9); POTASSIUM 3.9 mmol/L (3.5-5.1); TOT PROT 7.2 g/dl (6.4-8.2)
--- NOTE | 2020-04-21 09:40 | PN ---
Physical Exam: SUBJECTIVE: Patient seen refused wound care debridement etc yesterday. Only agrees to take his po meds. Refuses to OBJECTIVE: Vital Signs Period Temp Pulse Resp BP Sys/Perkins Pulse Ox Last 24 Hr 97.4 F-98.1 F 85-108 18-20 124-138/73-83 96 GENERAL: The patient is awake, alert, and oriented, in no acute distress. LUNGS: Breath sounds equal, clear to auscultation bilaterally, no wheezes, no crackles, no accessory muscle use. HEART: Regular rate and rhythm, S1, S2 without murmur, rub or gallop. ABDOMEN: Soft, nontender, nondistended. EXTREMITIES: 2+ pulses, warm, well-perfused, no edema. NEUROLOGICAL: Cranial nerves II through XII grossly intact. Normal speech. PSYCH: Normal mood, normal affect. SKIN: RLE Tree bark skin, stasis dermatitis ulceration refused allowance to examin his leg. LLE chronic skin changes .R 5th toe ulcer with necrotic tissue. Laboratory Results - last 24 hr 04/20/20 04/20/20 04/20/20 12:31 17:19 20:49 WBC RBC Hgb Hct MCV MCH MCHC RDW Plt Count MPV Absolute Neuts (auto) Neutrophils % Lymphocytes % Monocytes % Eosinophils % Basophils % Nucleated RBC % Sodium Potassium Chloride Carbon Dioxide Anion Gap BUN Creatinine Est GFR (CKD-EPI)AfAm Est GFR (CKD-EPI)NonAf POC Glucometer 109 130 190 Random Glucose Calcium Phosphorus Magnesium Total Bilirubin AST ALT Alkaline Phosphatase Total Protein Albumin 04/21/20 04/21/20 04/21/20 06:25 06:25 06:28 WBC 6.7 RBC 3.86 L Hgb 11.4 L Hct 34.0 L MCV 88.2 MCH 29.7 MCHC 33.6 RDW 15.3 Plt Count 171 MPV 9.9 Absolute Neuts (auto) 3.8 Neutrophils % 56.8 Lymphocytes % 34.8 Monocytes % 7.1 Eosinophils % 0.8 Basophils % 0.5 Nucleated RBC % 0 Sodium 138 Potassium 3.9 Chloride 106 Carbon Dioxide 23 Anion Gap 9 BUN 17.3 Creatinine 1.1 Est GFR (CKD-EPI)AfAm 90.24 Est GFR (CKD-EPI)NonAf 77.86 POC Glucometer 132 Random Glucose 125 H Calcium 9.2 Phosphorus 4.4 Magnesium 2.2 Total Bilirubin 0.8 AST 11 L ALT 26 Alkaline Phosphatase 86 Total Protein 7.2 Albumin 3.1 L Active Medications Generic Name Dose Route Start Last Admin Trade Name Apurva PRN Reason Stop Dose Admin Acetaminophen 650 mg 04/03/20 00:14 04/06/20 12:51 Tylenol - PO 650 mg Q4H PRN Administration PAIN LEVEL 4 - 6 Ascorbic Acid 500 mg 04/03/20 10:00 04/20/20 09:43 Vitamin C - PO 500 mg DAILY [facility] Administration Cholecalciferol 1,000 unit 04/03/20 10:00 04/20/20 09:43 Vitamin D3 - PO 1,000 unit DAILY [facility] Administration Heparin Sodium (Porcine) 5,000 unit 04/02/20 23:45 04/21/20 06:29 Heparin - SQ 5,000 unit TID [facility] Administration Insulin Aspart 1 vial 04/03/20 07:00 04/21/20 06:30 Novolog Vial Sliding Scale - SQ Not Given ACHS [facility] Protocol Insulin Aspart 12 units 04/17/20 16:30 04/21/20 06:30 Novolog Vial SQ 12 units TIDAC [facility] Administration Insulin Detemir 15 units 04/12/20 22:00 04/21/20 06:29 Levemir Vial SQ 15 units BID@0700,2200 [facility] Administration Levofloxacin 750 mg 04/15/20 11:00 04/20/20 09:43 Levaquin - PO 750 mg DAILY [facility] Administration ASSESSMENT/PLAN: 50M with unknown PMH admitted for sepsis 2/2 to RLE 5th MT OM. #Sepsis 2/2 RLE OM 5th digit with Stasis dermatitis/diabetic foot ulcer - RLE MRI: 5th digit OM + cellulitis - Wound cx: Polymicrobial, Repeat Blood cx (04/03) NG after 5 days - Started on Levaquin (04/15), completed 2 weeks of Zosyn+Vanc (04/02-04/15) before that, needsa total of 6 weeks of abx - Podiatry consult: patient refusing all surgical intervention- will likely need 6 weeks outpatient abx therapy, reconsulted podiatry to have second look as per ethics committee recommendations - Vascular consult: For wound debridement/management of venous ulcers: asked for reevaluation and per vasc pt has pulses and is not requiring vascular surgery intervention - Elevate the lower extremity above the level of the heart at all times while at rest - BL compression with JOSELITO wraps once cellulitis has receded (wrap from metacarpal heads to below knee)- pt refused - Domeboro soaks QD (astringent for pruritus). Apply Lac hydrin daily (for dry scaly skin). Wash LE with warm soapy water daily- pt refuses. - Given pt has refused vascular recommendations, ethics committee requires a second opinion from a different vascular surgeon to agree with Dr. Bateman's recommendations, so Dr. Sheets has been consulted for this reason and we appreciate his recommendations. - Psych consult: Pt lacks functional capacity to make informed decisions about his care due to severe cognitive impairment/poor judgment, reconsulted psych to assess for complete psych eval and pt deemed competent enough to make decisions now No evidence of any acute Mental illness, but can be manipulative. - Ethics consult: Can not force care despite not having medical decision making capacity, will need post hospital facility to continue abx - U Tox: Positive for opiates, performed after receiving Morphine in ED at 1542 on 04/02, pt denies opiate use #DM - HbA1c 10.2% - Levemir 15 U BID, Novolog TIDAC increased from 10U to12U due to poor glycemic control - Will start Janumet on discharge and refer to PCP/Endocrinology o/p. - Diabetes education provided #Normocytic Anemia - H&H now improving 10.6 -> 10.8 -> 10.6-> 11-> 11.4 today - Likely dilutional, no bleeding - B12/Ferritin/Folate wnl - FOBT (04/06): trace #DVT ppx -Heparin 5k TID #FEN - DM diet #Dispo - DC complicated by several factors. Pt is an undocumented resident, provides several DOBs (date of ), and refuses to work with for fci placement. - Furthermore, with an HbA1c of 10.5, he will require insulin, which nece ssitates subsequent placement somewhere he can store/administer insulin. - Medically pt is on PO abx ideally would require a picc line for 6 wks IV abx however since he is refusing surgical/wound care intervention as well as PT for leg wound, does not require further inpatient medical management. Visit type - Emergency Visit Emergency Visit: Yes ED Registration Date: 04/02/20 Care time: The patient presented to the Emergency Department on the above date and was hospitalized for further evaluation of their emergent condition. - New Patient This patient is new to me today: Yes Date on this admission: 04/21/20 - Critical Care Critical Care patient: No - Discharge Referral Referred to [facility] No ATTENDING PHYSICIAN STATEMENT I saw and evaluated the patient. I reviewed the resident's note and discussed the case with the resident. I agree with the resident's findings and plan as documented. SUBJECTIVE: OBJECTIVE: ASSESSMENT AND PLAN:
[2020-04-21] MEDS: CHOLECALCIFEROL (VIT D3) 1,000 UNIT (25 MCG) TABLET PO SCH (10:56)
[2020-04-21] MEDS: ASCORBIC ACID 500 MG TABLET (FP) PO SCH (10:56)
[2020-04-21] MEDS ORDERED: INSULIN (NOVOLOG) ASPART 100 UNITS/ML 10ML VIAL ONE ×2 (11:17→20:56)
--- NOTE | 2020-04-21 14:30 | CON.PSY ---
Psychiatry Consult Chief Complaint: 50 year old Male last seen by me on 04/08 for an evaluation of mental capacity.. I found him to be lacking capacity to make decisions due to acute infection and his Menatl Status at that time.. He is seen again today for Re Evauaytion as he improved significantly but continues to refuse further wound care and also refusing to leave the Hospital.. Spoke to Nurse who has been caring for him.. She found him to be alert and comprehending and responding to all questions./. He does behave in a manipulative Manner. - Previous Psychiatric Treatment Outpatient: None Inpatient: None - Previous Substance Abuse Treatment Outpatient: None Inpatient: None - Current Medications Current Medications: Active Medications Acetaminophen (Tylenol -) 650 mg PO Q4H PRN PRN Reason: PAIN LEVEL 4 - 6 Last Admin: 04/06/20 12:51 Dose: 650 mg Documented by: Ascorbic Acid (Vitamin C -) 500 mg PO DAILY [facility] Last Admin: 04/21/20 10:56 Dose: 500 mg Documented by: Cholecalciferol (Vitamin D3 -) 1,000 unit PO DAILY [facility] Last Admin: 04/21/20 10:56 Dose: 1,000 unit Documented by: Heparin Sodium (Porcine) (Heparin -) 5,000 unit SQ TID [facility] Last Admin: 04/21/20 06:29 Dose: 5,000 unit Documented by: Insulin Aspart (Novolog Vial Sliding Scale -) 1 vial SQ ACHS [facility]; Protocol Last Admin: 04/21/20 11:31 Dose: Not Given Documented by: Insulin Aspart (Novolog Vial) 12 units SQ TIDAC [facility] Last Admin: 04/21/20 11:30 Dose: 12 units Documented by: Insulin Detemir (Levemir Vial) 15 units SQ BID@0700,2200 [facility] Last Admin: 04/21/20 06:29 Dose: 15 units Documented by: Levofloxacin (Levaquin -) 750 mg PO DAILY [facility] Last Admin: 04/21/20 10:55 Dose: 750 mg Documented by: - Allergies Allergies: Allergies Allergy/AdvReac Type Severity Reaction Status Date / Time No Known Allergies Allergy Verified 04/02/20 16:19 - Current Living Status Usual Living Arrangement: Alone - Current Mental Status Evaluation Appearance: Well Groomed Attitude: Cooperative - Affect Affect: Full Range Appropriateness: Appropriate to Content - Mood Mood: Euthymic - Speech/Language Expressive: Coherent - Psychomotor Activity Psychomotor Activity: Normal - Thought Process Thought Process: Intact - Thought Content Hallucinations: Absent Delusions: Absent - Self Perception Self Perception: No Impairment - Cognition Attention: Alert Orientation: Time Memory, Immediate Recall: Intact Memory, Short Term: 3/3 Memory, Remote with Promptin/3 - Concentration Serial Sevens Intact: No Simple Calculations Intact: Yes - Abstraction Proverb Interpretation: Intact Judgement: Minimally Impaired - Insight Insight: Intact - Impulse Control Impulse Control: Good Control - Suicidal Ideation Suicidal Ideation: No - Homicidal Ideation Homicidal Ideation: No Assessment/Plan 1) Patients Mental Status has improved significantly since 04/08... He is able to comprehend and able to Make decisions at this time. 2) No evidence of any acute Mental illness, but can be manipulative..
--- NOTE | 2020-04-21 15:39 | PN ---
Teaching Attending Note Name of Resident: Noah Grigsby ATTENDING PHYSICIAN STATEMENT I saw and evaluated the patient. I reviewed the resident's note and discussed the case with the resident. I agree with the resident's findings and plan as documented. SUBJECTIVE: Seen and examined at bedside. Condition unchanged OBJECTIVE Last Vital Signs Temp Pulse Resp BP Pulse Ox 98.1 F 104 H 18 133/83 96 04/21/20 14:00 04/21/20 14:00 04/21/20 14:00 04/21/20 14:00 04/20/20 21:00 PE: per resident note Labs/Imaging: reviewed ASSESSMENT AND PLAN: 50 year old undomiciled male brought to ED after passers-by noticed maggots on his feet. Reports RLE pain/tenderness. CT RLE - suspicion of OM for 5th toe on right foot. #Sepsis secondary to RLE OM 5th toe with Cellulitis of Foot, infected ulcers with necrotic tissue (maggots) and Bacteremia Leukocytosis, tachycardia improved. MRI - OM R 5th MT -Vascular surgery and podiatry consulted: pt currently refusing surgical intervention -Cultures polymicrobial -on levofloxacin # DM 2 - A1c 10.2 Homeless, does not follow with PCP -levemir 15U BID -Lispro 12U TIDAC Continue sliding scale DVT Px - Heparin SQ Dispo:Patient does not have capacity to make medical decisions. Is refusing care of his wounds. Per ethics we cannot force him to either debride his wounds or amputate digit. Pt has no insurance and is likely undocumented. NOTE: Positive opiate test on admission was taken AFTER he received morphine in the ED. There is NO confirmed history of opiate abuse.
[2020-04-22] MEDS: HEPARIN NA (PORCINE) 5,000 UNITS/ML 1ML VIAL SQ SCH ×3 (06:12→21:55)
[2020-04-22] MEDS: INSULIN (LEVEMIR) 100 UNITS/ML UNITS SQ SCH ×2 (06:13→21:55)
[2020-04-22] MEDS: INSULIN SLIDING SCALE (NOVOLOG) 1 VIAL SQ SCH ×4 (06:13→21:53)
[2020-04-22] MEDS: INSULIN (NOVOLOG) ASPART 100 UNITS/ML 10ML VIAL SQ SCH ×3 (06:15→17:37)
[2020-04-22 07:47] LABS: BASO % 0.4 % (0-2.0); EOS % 0.7 % (0-4.5); HEMATOCRIT 34.5 % (35.4-49); HEMOGLOBIN 11.4 GM/dL (11.7-16.9); LYMPH % 37.7 % (8-40); MCH 29.1 pg (25.7-33.7); MCHC 33.2 g/dl (32.0-35.9); MEAN CELL VOLUME 87.8 fl (80-96); MEAN PLT VOLUME 9.9 fl (7.5-11.1); MONO % 6.5 % (3.8-10.2); NEUT % 54.7 % (42.8-82.8); PLATELET COUNT 156 K/MM3 (134-434); RBC 3.93 M/mm3 (4.00-5.60); RDW 15.2 % (11.9-15.9); WHITE BLOOD COUNT 6.7 K/mm3 (4.0-10.0)
[2020-04-22 08:19] LABS: ALBUMIN 3.1 g/dl (3.4-5.0); BILIRUBIN,TOTAL 0.8 mg/dL (0.2-1); CALCIUM 9.5 mg/dL (8.5-10.1); CREATININE 1.2 mg/dL (0.55-1.3); POTASSIUM 3.9 mmol/L (3.5-5.1); TOT PROT 7.3 g/dl (6.4-8.2)
[2020-04-22] MEDS: CHOLECALCIFEROL (VIT D3) 1,000 UNIT (25 MCG) TABLET PO SCH (09:54)
[2020-04-22] MEDS: ASCORBIC ACID 500 MG TABLET (FP) PO SCH (09:54)
--- NOTE | 2020-04-22 11:44 | PN ---
Progress Note (short form) - Note Progress Note: Podiatry F/U: Seen/evaluated at bedside, NAD. Patient appears much better, less disheveled and clean compared to his admission state. He has nursing staff performing dressing changes to the right leg and foot. He was noted to present with bacteremia and osteomyelitis of the fifth MTPJ. During that time I had recommended amputation and the patient adamantly refused. He completed course of intravenous abx and now the patient is on PO levaquin. He remains afebrile with negative blood cultures. I have been asked to further re-evaluate the patient, as he is refusing to work toward discharge given the appropriate measures and resources that are in place. He has been evaluated several times by Psychiatry as well. BRIAN: R foot: Pedal pulses palpable, TG wnl, CFT brisk to all toes. There is venous stasis ulcers on the right lower leg that are granular and epithelializing well, no purulence, no fluctuance, no streaking cellulitis. There is a dorsal 5th MTPJ chronic ulcer with mixed fibrogranular base, probes deep, scant seropurulent drainage. There is contracture deformity of the fifth digit at the MTPJ, likely from infection. There is no soft tissue crepitus. There is no tenderness to palpation. MRI right foot: demonstrates osteomyelitis fifth digit Imp: 50 year old male with right fifth digit osteomyelitis and bacteremia which has since resolved I had a thorough discussion with the patient regarding his condition and his treatment options. I described in detail the options for treatment of osteomyelitis; namely antibiotic treatment versus amputation. I discussed the risk with conservative treatment with antibiotic therapy of recurrence, worsening of infection, loss of digit, loss of limb, bacteremia, sepsis and even organ failure and . I described that the definitive treatment for bone infection with tissue loss is amputation. Despite our conversation, he is refusing amputation and states "the nurses are taking care of me". I discussed that he will not have nursing staff available as a resource forever and he may require hospitalization and amputation in the future. He understands the risks and wishes to proceed conservatively. He has been cleared by psychiatry as far as his capacity to make decisions on his health. At this point, please reconsult as needed and I will be happy to see the patient going forward. Umberto Pack DPM
--- NOTE | 2020-04-22 14:48 | PN ---
Teaching Attending Note Name of Resident: Noah Grigsby ATTENDING PHYSICIAN STATEMENT I saw and evaluated the patient. I reviewed the resident's note and discussed the case with the resident. I agree with the resident's findings and plan as documented. SUBJECTIVE: Seen and examined at bedside. Condition unchanged OBJECTIVE Last Vital Signs Temp Pulse Resp BP Pulse Ox 97.8 F 90 18 123/72 98 04/22/20 09:00 04/22/20 09:00 04/22/20 09:00 04/22/20 09:00 04/22/20 09:00 PE: per resident note Labs/Imaging: reviewed ASSESSMENT AND PLAN: 50 year old undomiciled male brought to ED after passers-by noticed maggots on his feet. Reports RLE pain/tenderness. CT RLE - suspicion of OM for 5th toe on right foot. #Sepsis secondary to RLE OM 5th toe with Cellulitis of Foot, infected ulcers with necrotic tissue (maggots) and Bacteremia Leukocytosis, tachycardia improved. MRI - OM R 5th MT -Vascular surgery and podiatry consulted: pt currently refusing surgical intervention -Cultures polymicrobial -on levofloxacin # DM 2 - A1c 10.2 Homeless, does not follow with PCP -levemir 15U BID -Lispro 12U TIDAC Continue sliding scale DVT Px - Heparin SQ Dispo:Patient is refusing care of his wounds. Per ethics we cannot force him to either debride his wounds or amputate digit. Pt has no insurance and is likely undocumented. NOTE: Positive opiate test on admission was taken AFTER he received morphine in the ED. There is NO confirmed history of opiate abuse.
--- NOTE | 2020-04-22 15:06 | PN ---
Physical Exam: SUBJECTIVE: Patient seen and examined. No acute events noted other than pt continues to refuse care to his lower extremities stating "my leg is fine, theres nothing wrong with my leg". OBJECTIVE: Vital Signs Period Temp Pulse Resp BP Sys/Perkins Pulse Ox Last 24 Hr 97.2 F-98.5 F 90-109 18-20 118-125/70-76 98-98 Refuses exam Laboratory Results - last 24 hr 04/21/20 04/21/20 04/22/20 17:14 21:11 06:09 WBC RBC Hgb Hct MCV MCH MCHC RDW Plt Count MPV Absolute Neuts (auto) Neutrophils % Lymphocytes % Monocytes % Eosinophils % Basophils % Nucleated RBC % Sodium Potassium Chloride Carbon Dioxide Anion Gap BUN Creatinine Est GFR (CKD-EPI)AfAm Est GFR (CKD-EPI)NonAf POC Glucometer 174 163 141 Random Glucose Calcium Total Bilirubin AST ALT Alkaline Phosphatase Total Protein Albumin 04/22/20 04/22/20 04/22/20 06:15 06:15 11:27 WBC 6.7 RBC 3.93 L Hgb 11.4 L Hct 34.5 L MCV 87.8 MCH 29.1 MCHC 33.2 RDW 15.2 Plt Count 156 MPV 9.9 Absolute Neuts (auto) 3.7 Neutrophils % 54.7 Lymphocytes % 37.7 Monocytes % 6.5 Eosinophils % 0.7 Basophils % 0.4 Nucleated RBC % 0 Sodium 140 Potassium 3.9 Chloride 108 H Carbon Dioxide 24 Anion Gap 9 BUN 18.0 Creatinine 1.2 Est GFR (CKD-EPI)AfAm 81.23 Est GFR (CKD-EPI)NonAf 70.09 POC Glucometer 132 Random Glucose 132 H Calcium 9.5 Total Bilirubin 0.8 AST 9 L ALT 25 Alkaline Phosphatase 87 Total Protein 7.3 Albumin 3.1 L Active Medications Generic Name Dose Route Start Last Admin Trade Name Freq PRN Reason Stop Dose Admin Acetaminophen 650 mg 04/03/20 00:14 04/06/20 12:51 Tylenol - PO 650 mg Q4H PRN Administration PAIN LEVEL 4 - 6 Ascorbic Acid 500 mg 04/03/20 10:00 04/22/20 09:54 Vitamin C - PO 500 mg DAILY [facility] Administration Cholecalciferol 1,000 unit 04/03/20 10:00 04/22/20 09:54 Vitamin D3 - PO 1,000 unit DAILY [facility] Administration Heparin Sodium (Porcine) 5,000 unit 04/02/20 23:45 04/22/20 14:46 Heparin - SQ 5,000 unit TID [facility] Administration Insulin Aspart 1 vial 04/03/20 07:00 04/22/20 11:29 Novolog Vial Sliding Scale - SQ Not Given ACHS [facility] Protocol Insulin Aspart 12 units 04/17/20 16:30 04/22/20 11:29 Novolog Vial SQ Not Given TIDAC [facility] Insulin Detemir 15 units 04/12/20 22:00 04/22/20 06:13 Levemir Vial SQ 15 units BID@0700,2200 [facility] Administration Levofloxacin 750 mg 04/15/20 11:00 04/22/20 09:54 Levaquin - PO 750 mg DAILY [facility] Administration ASSESSMENT/PLAN: 50M with unknown PMH admitted for sepsis 2/2 to RLE 5th MT OM. #Sepsis 2/2 RLE OM 5th digit with Stasis dermatitis/diabetic foot ulcer - RLE MRI: 5th digit OM + cellulitis - Wound cx: Polymicrobial, Repeat Blood cx (04/03) NG after 5 days - Started on Levaquin (04/15), completed 2 weeks of Zosyn+Vanc (04/02-04/15) before that, needs a total of 6 weeks of abx - Podiatry consult: patient refusing all surgical intervention- will likely need 6 weeks outpatient abx therapy, reconsulted podiatry stating they tried to convince pt that he would need toe amputation and debridement but given he contihnues to refuse their is nothing for him to do. - Vascular consult: For wound debridement/management of venous ulcers: asked for reevaluation and per vasc pt has pulses and is not requiring vascular surgery intervention - Elevate the lower extremity above the level of the heart at all times while at rest - B/l compression with JOSELITO wraps once cellulitis has receded (wrap from metacarpal heads to below knee)- pt refused - Domeboro soaks QD (astringent for pruritus). Apply Lac hydrin daily (for dry scaly skin). Wash LE with warm soapy water daily- pt refuses. - Given pt has refused vascular recommendations, ethics committee requires a second opinion from a different vascular surgeon to agree with Dr. Bateman's recommendations, so Dr. Sheets has been consulted for this reason and we appreciate his recommendations. - Psych consult: pt deemed competent enough to make decisions now. No evidence of any acute Mental illness, but can be manipulative, however pt has flat affect and pt clearly exhibits poor judgement given conservative mgmt will render him to lose his leg in all likelihood. - Ethics consult: Can not force care despite not having medical decision making capacity, will need post hospital facility to continue abx #DM - HbA1c 10.2% - Levemir 15 U BID, Novolog TIDAC increased from 10U to12U due to poor glycemic control - Will start Janumet on discharge and refer to PCP/Endocrinology o/p. - Diabetes education provided #Normocytic Anemia - H&H now improving 10.6 -> 10.8 -> 10.6-> 11-> 11.4 today - Likely dilutional, no bleeding - B12/Ferritin/Folate wnl - FOBT (04/06): trace #DVT ppx -Heparin 5k TID #FEN - DM diet #Dispo - DC complicated by several factors. Pt is an undocumented resident, provides several DOBs (date of ), and refuses to work with for fdc placement. - Furthermore, with an HbA1c of 10.5, he will require insulin, which necessitates subsequent placement somewhere he can store/administer insulin. - Medically pt is on PO abx ideally would require a picc line for 6 wks IV abx however since he is refusing surgical/wound care intervention as well as PT for leg wound, does not require further inpatient medical management. Visit type - Emergency Visit Emergency Visit: Yes ED Registration Date: 04/02/20 Care time: The patient presented to the Emergency Department on the above date and was hospitalized for further evaluation of their emergent condition. - New Patient This patient is new to me today: No - Critical Care Critical Care patient: No - Discharge Referral Referred to [facility] Med [facility] No ATTENDING PHYSICIAN STATEMENT I saw and evaluated the patient. I reviewed the resident's note and discussed the case with the resident. I agree with the resident's findings and plan as documented. SUBJECTIVE: OBJECTIVE: ASSESSMENT AND PLAN:
[2020-04-23] MEDS: HEPARIN NA (PORCINE) 5,000 UNITS/ML 1ML VIAL SQ SCH ×2 (06:01→16:12)
[2020-04-23] MEDS: INSULIN SLIDING SCALE (NOVOLOG) 1 VIAL SQ SCH ×2 (06:01→11:10)
[2020-04-23] MEDS: INSULIN (LEVEMIR) 100 UNITS/ML UNITS SQ SCH (06:02)
[2020-04-23] MEDS: INSULIN (NOVOLOG) ASPART 100 UNITS/ML 10ML VIAL SQ SCH ×2 (06:03→11:13)
[2020-04-23 06:50] LABS: BASO % 0.5 % (0-2.0); HEMOGLOBIN 11.2 GM/dL (11.7-16.9); LYMPH % 38.8 % (8-40); MCH 29.6 pg (25.7-33.7); MONO % 7.1 % (3.8-10.2); NEUT % 52.6 % (42.8-82.8); PLATELET COUNT 148 K/MM3 (134-434); RDW 15.4 % (11.9-15.9); WHITE BLOOD COUNT 6.3 K/mm3 (4.0-10.0)
[2020-04-23 07:27] LABS: ALBUMIN 3.1 g/dl (3.4-5.0); BILIRUBIN,TOTAL 0.6 mg/dL (0.2-1); BLOOD UREA NITROGEN 20.8 mg/dL (7-18); CALCIUM 9.5 mg/dL (8.5-10.1); CREATININE 1.2 mg/dL (0.55-1.3); POTASSIUM 4.1 mmol/L (3.5-5.1); TOT PROT 7.2 g/dl (6.4-8.2)
[2020-04-23] MEDS: CHOLECALCIFEROL (VIT D3) 1,000 UNIT (25 MCG) TABLET PO SCH (11:10)
[2020-04-23] MEDS: ASCORBIC ACID 500 MG TABLET (FP) PO SCH (11:10)
--- NOTE | 2020-04-23 14:43 | PN ---
Teaching Attending Note Name of Resident: Noah Grigsby ATTENDING PHYSICIAN STATEMENT I saw and evaluated the patient. I reviewed the resident's note and discussed the case with the resident. I agree with the resident's findings and plan as documented. SUBJECTIVE: Seen and examined at bedside. Condition unchanged OBJECTIVE Last Vital Signs Temp Pulse Resp BP Pulse Ox 97.3 F L 86 18 125/76 96 04/23/20 10:00 04/23/20 10:00 04/23/20 10:00 04/23/20 10:00 04/22/20 21:00 PE: per resident note Labs/Imaging: reviewed ASSESSMENT AND PLAN: 50 year old undomiciled male brought to ED after passers-by noticed maggots on his feet. Reports RLE pain/tenderness. CT RLE - suspicion of OM for 5th toe on right foot. #Sepsis secondary to RLE OM 5th toe with Cellulitis of Foot, infected ulcers with necrotic tissue (maggots) and Bacteremia Leukocytosis, tachycardia improved. MRI - OM R 5th MT -Vascular surgery and podiatry consulted: pt currently refusing surgical intervention -Cultures polymicrobial -on levofloxacin # DM 2 - A1c 10.2 Homeless, does not follow with PCP -levemir 15U BID -Lispro 12U TIDAC Continue sliding scale DVT Px - Heparin SQ Dispo:Patient is refusing care of his wounds. Per ethics we cannot force him to either debride his wounds or amputate digit. Pt has no insurance and is likely undocumented. NOTE: Positive opiate test on admission was taken AFTER he received morphine in the ED. There is NO confirmed history of opiate abuse.
[2020-04-23 15:28] VITALS: BP 140/80; PULSE 98; TEMP 97.9
== END 2020-04-23 16:40 | disposition home or self-care (01) | DRG 720 ==
LOC: JER 14:58 → JERBED 20:30 → J8W 04-03 00:20
PROVIDERS: ADMIT Internal Medicine; ATTEND Internal Medicine
DX: A41.81 Sepsis due to Enterococcus (principal); E88.09 Other disorders of plasma-protein metabolism, not elsewhere classified; R00.0 Tachycardia, unspecified; E66.9 Obesity, unspecified; Z68.30 Body mass index [BMI] 30.0-30.9, adult; E11.9 Type 2 diabetes mellitus without complications; E46 Unspecified protein-calorie malnutrition; E87.1 Hypo-osmolality and hyponatremia; L03.116 Cellulitis of left lower limb; E11.622 Type 2 diabetes mellitus with other skin ulcer; L97.828 Non-pressure chronic ulcer of other part of left lower leg with other specified severity; E11.69 Type 2 diabetes mellitus with other specified complication; M86.8X6 Other osteomyelitis, lower leg; E86.0 Dehydration; E83.39 Other disorders of phosphorus metabolism; Z59.0 Homelessness; E11.65 Type 2 diabetes mellitus with hyperglycemia; T69.029A Immersion foot, unspecified foot, initial encounter; D64.9 Anemia, unspecified; R46.0 Very low level of personal hygiene; E11.52 Type 2 diabetes mellitus with diabetic peripheral angiopathy with gangrene; I96 Gangrene, not elsewhere classified; D72.829 Elevated white blood cell count, unspecified
CPT/HCPCS: 36415; 71045-TC-FY; 73610-TC-LT-FY; 73610-TC-RT-FY; 73630-TC-LT; 73630-TC-RT-FY; 73701-TC-RT; 73718-TC-LT; 73718-TC-RT; 80048; 80051; 80053; 80307; 81003; 82272; 82550; 82607; 82728; 82746; 82962; 83036; 83540; 83550; 83605; 83735; 84100; 84443; 84484; 85025; 85027; 85610; 85651; 85730; 86140; 86850; 86900; 86901; 87040; 87070; 87086; 87186; 87205; 93005; 93010; 93306-TC; 99291; G0480; J1644; Q9967; U0003